=== PATIENT | female | born 1950 | race Caucasian/White ===

== ENCOUNTER 2021-06-03 09:34 | Outpatient (REF) | payer MEDICARE, SELFPAY ==
[2021-06-03 12:27] LABS: Estimated Average Glucose 220 mg/dL; Hemoglobin A1c % 9.3 %
== END 2021-06-03 09:35 | disposition home or self-care (01) ==
LOC: HO.MANLDS 09:34
PROVIDERS: PCP Internal Medicine; Visit Provider Internal Medicine
DX: E11.65 Type 2 diabetes mellitus with hyperglycemia (principal)
CPT/HCPCS: 36415; 83036

== ENCOUNTER 2021-10-21 13:30 | Outpatient (REF) | payer MEDICARE, SELFPAY ==
[2021-10-21 18:55] LABS: Erythrocyte Sedimentation Rate 39 MM/HR (0-20)
[2021-10-21 20:32] LABS: Alanine Aminotransferase 21 U/L (0-31); Albumin Level 4.1 g/dL (3.5-5.0); Alkaline Phosphatase 120 U/L (39-117); Anion Gap 15 (12-20); Aspartate Amino Transferase 20 U/L (5-31); Bilirubin Total 0.2 mg/dL (0.0-1.0); Blood Urea Nitrogen 14 mg/dL (9-16); C Reactive Protein 1.31 mg/dL (< or = 0.50); Carbon Dioxide 22 mmol/L (22-29); Chloride 107 mmol/L (96-108); Estimated Glomerular Filt Rate 53; Glucose Random 163 mg/dL (60-115); Magnesium 1.7 mg/dL (1.6-2.6); Potassium 4.5 mmol/L (3.3-5.1); Rheumatoid Factor < 15.0 IU/mL (<15.0); Sodium 139 mmol/L (135-145); Total Protein 7.2 g/dL (6.5-8.0)
[2021-10-21 20:46] LABS: Estimated Average Glucose 214 mg/dL; Hemoglobin A1c % 9.1 %
[2021-10-21 20:52] LABS: Thyroid Stimulating Hormone 0.95 uIU/mL (0.32-4.0); Vitamin D 25-OH Total 22.4 ng/mL (>30)
[2021-10-22 10:34] LABS: Folate 13.6 ng/mL (> or = 4.0); Vitamin B12 335 pg/mL (200-900)
[2021-10-23 08:48] LABS: Lyme Abs Screen <0.90 index
[2021-10-23 21:56] LABS: Anti Nuclear Antibody Screen NEGATIVE (NEGATIVE)
== END 2021-10-21 13:31 | disposition home or self-care (01) ==
LOC: HO.MANLDS 13:30
PROVIDERS: Visit Provider Physician Assistant
DX: M79.18 Myalgia, other site (principal); E11.65 Type 2 diabetes mellitus with hyperglycemia; M89.8X9 Other specified disorders of bone, unspecified site; M79.10 Myalgia, unspecified site; R53.83 Other fatigue; Z86.39 Personal history of other endocrine, nutritional and metabolic disease
CPT/HCPCS: 36415; 80053; 82306; 82550; 82607; 82746; 83036; 83735; 84443; 84550; 85652; 86038; 86039; 86140; 86431; 86617; 86618

== ENCOUNTER 2023-03-02 11:16 | Outpatient (REF) | payer MEDICARE, SELFPAY ==
[2023-03-02 13:21] LABS: MANUAL DIFF FLAG NO
[2023-03-02 13:33] LABS: Basophils Absolute Auto 0.1 X10*3/uL (0.0-0.2); Basophils Percent Auto 0.5 % (0-2); Eosinophils Absolute Auto 0.1 X10*3/uL (0.0-0.4); Eosinophils Percent Auto 0.9 % (0-4); Hematocrit 42.9 % (37.0-47.0); Hemoglobin 13.8 g/dl (12.0-16.0); Imm Gran Abs Auto 0.04 X10*3/uL (0.00-0.03); Imm Gran Pct Auto 0.4 % (0.0-0.4); Lymphocytes Absolute Auto 1.8 X10*3/uL (1.2-4.9); Lymphocytes Percent Auto 17.9 % (20-40); Mean Corpuscular HGB Conc 32.2 g/dl (31.0-35.0); Mean Corpuscular Hemoglobin 29.1 pg (27.0-33.0); Mean Corpuscular Volume 90.5 fL (80.0-98.0); Mean Platelet Volume 10.8 fL (9.4-12.3); Monocytes Absolute Auto 0.7 X10*3/uL (0.1-1.2); Monocytes Percent Auto 6.6 % (2-11); Neutrophils Absolute Auto 7.3 x10*3/uL (2.0-8.3); Neutrophils Percent Auto 73.7 % (45-73); Platelet Count 294 X10*3/uL (160-400); Red Blood Count 4.74 X10*6/uL (4.20-5.50); Red Cell Distribution Width 12.9 % (11.0-16.0); White Blood Count 9.9 X10*3/uL (4.8-10.8)
[2023-03-02 13:45] LABS: Estimated Average Glucose 209 mg/dL; Hemoglobin A1c % 8.9 % (<6.0)
[2023-03-02 14:10] LABS: Alanine Aminotransferase 20 U/L (0-31); Albumin Level 3.9 g/dL (3.5-5.0); Alkaline Phosphatase 92 U/L (39-117); Anion Gap 13 (12-20); Aspartate Amino Transferase 15 U/L (5-31); Bilirubin Total 0.3 mg/dL (0.0-1.0); Blood Urea Nitrogen 21 mg/dL (9-16); Calcium 9.2 mg/dL (8.4-10.2); Carbon Dioxide 21 mmol/L (22-29); Chloride 105 mmol/L (96-108); Cholesterol 166 mg/dL (<200); Estimated Glomerular Filt Rate 43; Glucose Random 313 mg/dL (60-115); HDL Cholesterol 39 mg/dL (>40); LDL Cholesterol Calculated 69 mg/dL (<100); Potassium 4.3 mmol/L (3.3-5.1); Sodium 135 mmol/L (135-145); Total Protein 7.2 g/dL (6.5-8.0); Triglycerides 290 mg/dL (<150)
== END 2023-03-02 11:17 | disposition home or self-care (01) ==
LOC: HO.MANLDS 11:16
PROVIDERS: Visit Provider Physician Assistant
DX: E11.65 Type 2 diabetes mellitus with hyperglycemia (principal)
CPT/HCPCS: 36415; 80053; 80061; 83036; 85025

== ENCOUNTER 2023-07-09 14:44 | Outpatient (REF) | payer MEDICARE, SELFPAY ==
[2023-07-09 17:35] LABS: MANUAL DIFF FLAG NO
[2023-07-09 17:38] LABS: Basophils Absolute Auto 0.1 X10*3/uL (0.0-0.2); Basophils Percent Auto 0.6 % (0-2); Eosinophils Percent Auto 0.5 % (0-4); Hematocrit 44.5 % (37.0-47.0); Hemoglobin 14.8 g/dl (12.0-16.0); Imm Gran Abs Auto 0.03 X10*3/uL (0.00-0.03); Imm Gran Pct Auto 0.4 % (0.0-0.4); Lymphocytes Absolute Auto 1.8 X10*3/uL (1.2-4.9); Lymphocytes Percent Auto 21.5 % (20-40); Mean Corpuscular HGB Conc 33.3 g/dl (31.0-35.0); Mean Corpuscular Hemoglobin 28.6 pg (27.0-33.0); Mean Corpuscular Volume 86.1 fL (80.0-98.0); Mean Platelet Volume 10.7 fL (9.4-12.3); Monocytes Absolute Auto 0.6 X10*3/uL (0.1-1.2); Neutrophils Absolute Auto 5.8 x10*3/uL (2.0-8.3); Platelet Count 328 X10*3/uL (160-400); Red Blood Count 5.17 X10*6/uL (4.20-5.50); White Blood Count 8.2 X10*3/uL (4.8-10.8)
[2023-07-09 17:58] LABS: Alanine Aminotransferase 20 U/L (0-31); Albumin Level 4.1 g/dL (3.5-5.0); Alkaline Phosphatase 100 U/L (39-117); Anion Gap 16 (12-20); Aspartate Amino Transferase 15 U/L (5-31); Bilirubin Total 0.3 mg/dL (0.0-1.0); Blood Urea Nitrogen 27 mg/dL (9-16); Calcium 9.8 mg/dL (8.4-10.2); Carbon Dioxide 20 mmol/L (22-29); Chloride 103 mmol/L (96-108); Estimated Glomerular Filt Rate 42; Glucose Random 326 mg/dL (60-115); Iron 54 mcg/dL (30-160); Percent Iron Saturation 17 % (15-50); Phosphorus 2.7 mg/dL (2.7-4.5); Potassium 4.8 mmol/L (3.3-5.1); Sodium 134 mmol/L (135-145); Total Iron Binding Capacity 316 mcg/dL (228-428); Unsaturated Iron Binding 262 ug/dL; Uric Acid 7.7 mg/dL (2.4-5.7)
[2023-07-09 18:15] LABS: Ferritin 138 ng/mL (10-250); Thyroid Stimulating Hormone 0.84 uIU/mL (0.32-4.0)
[2023-07-09 18:20] LABS: Rheumatoid Factor < 13.0 IU/mL (<15.0)
[2023-07-09 18:49] LABS: Folate 10.5 ng/mL (> or = 4.0); Vitamin B12 409 pg/mL (200-900)
[2023-07-10 10:49] LABS: Thyroid Peroxidase Antibodies <1 IU/mL (<9)
[2023-07-11 10:54] LABS: Anti Nuclear Antibody Screen NEGATIVE (NEGATIVE)
[2023-07-12 17:43] LABS: Lyme Abs Screen <0.90 index
[2023-07-12 21:47] LABS: Complement C3 192 mg/dL (83-193)
[2023-07-13 14:39] LABS: A. Phagocytophilum Ab IgG <1:64 (<1:64); A. Phagocytophilum Ab IgM <1:20 (<1:20); E. Chaffeensis Ab IgG <1:64 (<1:64); E. Chaffeensis Ab IgM <1:20 (<1:20)
[2023-07-14 23:23] LABS: Immunoglobulin E 133 kU/L (<OR=114)
[2023-07-15 15:43] LABS: Thyroid Stimulating Immunoglob <89 % baseline (<140)
== END 2023-07-09 14:45 | disposition home or self-care (01) ==
LOC: HO.MANLDS 14:44
PROVIDERS: Visit Provider Physician Assistant
DX: M62.81 Muscle weakness (generalized) (principal); M25.50 Pain in unspecified joint; R53.83 Other fatigue
CPT/HCPCS: 36415; 80053; 82306; 82550; 82607; 82728; 82746; 82785; 83540; 83735; 84100; 84439; 84443; 84445; 84550; 85025; 86038; 86160; 86376; 86431; 86617; 86618; 86666

== ENCOUNTER 2024-02-15 14:30 | Outpatient (REF) | payer MEDICARE, SELFPAY | END 2024-02-15 14:31 | disposition home or self-care (01) | LOC: HO.LNP 14:30 | PROVIDERS: Visit Provider Physician Assistant | DX: A49.1 Streptococcal infection, unspecified site (principal) | CPT/HCPCS: 87070 ==

== ENCOUNTER 2024-07-04 13:22 | Outpatient (REF) | payer MEDICARE, SELFPAY ==
--- OUTSIDE RECORDS SUMMARY | 2024-07-04 16:17 | XMS_ITS | Continuity of Care Document ---
Author Organization [facility], [facility] Address [address] [place] [address] [place] [address] Assessment No assessment recorded. Plan of Treatment Reminders Order Date Submit Date Provider Last Modified By Organization Details Last Modified Time Details Appointments FOLLOW UP 15 2024 11:00A M TALAT CROWLEY Not available Not available Not available FOLLOW UP 15 2024 09:00A M DR LACY Not available Not available Not available MEDICARE ANNUAL WELLNESS 2024 11:00A M DR LACY Not available Not available Not available Lab culture, ear - left ear 2024 025 [facility], [address] [place] [address], [place], [address], 07/04/2024 11:32:32 Referral None recorded. Procedures None recorded. Surgeries None recorded. Imaging None recorded. Medication Orders ciproflox acin 0.3 %-dexamet hasone 0.1 % ear drops,eulalia pension 2024 025 [id number], [address] [place], [address], 07/04/2024 11:31:35 ketoconaz ole 200 mg tablet 2024 025 [facility][id number], [address] [place], [address], 07/04/2024 11:31:35 Patient TargetsNo targets recorded. Patient InstructionsNo instructions recorded. Reason for Referral None Reported. Problems Name Problem SNOMED Code Status Onset Date Resolution Date Notes Provider Name and Address Organization Details Recorded Time Hyperten sive disorder 24462838 Active 2018 Not Available [facility] 2 01:26:47 Asthma 929726859 Active 2018 Not Available [facility] 2 01:26:47 Type 2 diabetes mellitus 53644513 Active 2018 Not Available [facility] 2 01:26:47 Degenera tion of lumbar interver tebral disc 75806877 Active 2019 Not Available [facility] 2 01:26:47 COVID-19 933585215 Active 2021 Not Available [facility] 2 01:26:47 Cough 80237125 Active 2021 Not Available [facility] 2 01:26:47 Muscle pain 36470817 Active 2021 Not Available [facility] 2 01:26:47 Myalgia/ myositis - multiple 601748671 Active 2021 Not Available [facility] 2 01:26:47 Muscle weakness 01573423 Active 2021 Not Available [facility] 2 01:26:47 Polymyal mary rheumati ca 26029732 Active 2021 Not Available [facility] 2 01:26:47 Candidia sis of mouth 91959181 Active 2021 Not Available [facility] 2 01:26:47 Candidia sis of vagina 69243743 Active 2021 Not Available [facility] 2 01:26:47 Asthmati c bronchit is 419408138 Active 2021 Not Available [facility] 2 01:26:47 Left lower zone pneumoni a 602042261 Active 2021 Not Available [facility] 2 01:26:47 Acute urinary tract infectio n 169731343 Active 2022 TALAT CROWLEY [address] [place] [address], [address], [facility] 3 11:39:05 Pain in limb 01684004 Active 2022 TALAT CROWLEY [address] [place], [address], [facility] 3 11:39:51 Pain in limb 45130467 Active 2022 TALAT CROWLEY [address] [place], [address], [facility] 3 11:42:46 Pain of left shoulder joint 9027190131 6543318 Active 2022 TALAT CROWLEY [address] [place], [address], [facility] 3 08:44:43 Impingem ent syndrome of left shoulder region 7904947356 71316 Active 2022 TALAT CROWLEY [address] [place] [address], [address], [facility] 3 12:35:14 Rupture of rotator cuff of left shoulder 5540242745 2547932 Active 2022 Kaden Lacy DO [address] [place] [address], [address], [facility] 3 15:34:24 Nausea 503315220 Active 2022 TALAT CROWLEY [address] [place], [address], [facility] 3 11:00:26 Serous otitis media 84476151 Active 2022 Kaden Lacy DO [address] [place], [address], [facility] 3 14:35:45 Candidia sis of skin 39820130 Active 2022 TALAT CROWLEY [address] [place], [address], [facility] 3 11:03:52 Cellulit is 672515013 Active 2022 TALAT CROWLEY [address] [place], [address], [facility] 3 11:04:19 Low back pain 908246439 Active 2023 Kaden Lacy, DO [address] [place] [address], [address], [facility] 4 16:33:54 Alcohol dependen ce 89459577 Active 2023 TALAT CROWLEY [address] [place] [address], [address], [facility] 4 14:22:05 Dementia 01774973 Active 2023 TALAT CROWLEY [address] [place] [address], [address], [facility] 4 14:23:05 Neuralgi a 25953150 Active 2023 TALAT CROWLEY [address] [place] [address], [address], [facility] 4 14:23:35 Multiple joint pain 38873974 Active 2023 TALAT CROWLEY [address] [place] [address], [address], [facility] 4 14:24:39 Parkinso nism 69953992 Active 2023 TALAT CROWLEY [address] [place] [address], [address], [facility] 4 14:25:48 Fatigue 73895936 Active 2023 TALAT CROWLEY [address] [place] [address], [address], [facility] 4 14:27:54 Chronic tympanit is 78333678 Active 2023 Kaden Lacy, DO [address] [place] [address], [address], [facility] 4 16:45:01 Chronic tympanit is 92347621 Active 2023 Kaden Lacy, DO [address] [place] [address], [address], [facility] 4 16:45:12 Acute otitis media 0087112 Active 2023 Kaden Lacy, DO [address] [place], [address], [facility] 4 17:16:02 Pneumoni a 652022568 Active 2023 Kaden Lacy, DO [address] [place] [address], [address], [facility] 4 14:45:23 Syncope 468764967 Active 2023 TALAT CROWLEY [address] [place] [address], [address], [facility] 4 14:50:46 Uncontro lled type 2 diabetes mellitus 492232649 Active 2023 TALAT CROWLEY [address] [place] [address], [address], [facility] 4 14:56:03 Glaucoma 41203115 Active 2023 TALAT CROWLEY [address] [place], [address], [facility] 4 14:58:35 Glaucoma 86490787 Active 2023 TALAT CROWLEY [address] [place], [address], [facility] 4 15:00:17 Abnormal cortisol 406227167 Active 2023 TALAT CROWLEY [address] [place], [address], [facility] 4 15:00:44 Ataxia 82530528 Active 2023 Kaden Lacy, DO [address] [place], [address], [facility] 4 22:56:42 Pain of ear 526796567 Active 2023 Kaden Lacy, DO [address] [place], [address], [facility] 4 16:02:54 Insomnia 977037977 Active 2023 Kaden Lacy, DO [address] [place], [address], [facility] 4 16:07:33 Streptoc occal infectio us disease 83612625 Active 2023 TALAT CROWLEY [address] [place] [address], [address], [facility] 4 11:23:35 Postoper ative wound infectio n 78535387 Active 2023 Kaden Lacy, DO [address] [place] [address], [address], [facility] 4 11:26:51 Impacted cerumen of bilatera l ears 2554782257 284782 Active 2024 TALAT CROWLEY [address] [place] [address], [address], [facility] 5 16:15:52 Chronic maxillar y sinusiti s 94461299 Active 2024 TALAT CROWLEY [address] [place] [address], [address], [facility] 5 16:16:17 Acute sinusiti s 63755141 Active 2024 TALAT CROWLEY [address] [place] [address], [address], [facility] 5 16:16:27 Basal cell carcinom a of lower extremit y 320714624 Active 2024 TALAT CROWLEY [address] [place] [address], [address], [facility] 5 16:20:10 Posterio r rhinorrh ea 61993807 Active 2024 TALAT CROWLEY [address] [place], [address], [facility] 5 16:50:47 Acute left otitis media 056007507 Active 2024 TALAT CROWLEY [address] [place], [address], [facility] 5 11:24:59 Asthma 983298176 Completed 201705/24/2018 Kaden Lacy DO [address] [place] [address], [address], [facility] 9 15:53:30 Type 2 diabetes mellitus 41296665 Completed 201705/24/2018 Kaden Lacy DO [address] [place] [address], [address], [facility] 9 15:54:53 Gastroes ophageal reflux disease 093714128 Completed 201705/24/2018 Veronica corley [facility] 9 15:32:51 Disorder of gallblad saleem 25606691 Completed 201705/24/2018 cholecys testomy Veronica corley [facility] 9 15:32:51 Weakness of left leg 8735238572 2042559 Completed 201705/24/2018 Veronica corley [facility] 9 15:32:51 Weakness of right leg 8620187326 8065908 Completed 201705/24/2018 Veronica corley [facility] 9 15:32:51 Serous otitis media 46581436 Completed 201705/24/2018 Veronica corley [facility] 9 15:32:51 Problem Notes None recorded. Procedures Surgical History Date Name Laterality Status Provider Name and Address Organization Details Recorded Time 5 Cerumen Removal completed TALAT CROWLEY [address] [place], [address], [facility] 07/04/2024 11:36:20 5 Cerumen Removal completed TALAT CROWLEY [address] [place], [address], [facility] 06/06/2024 16:21:58 Imaging Results None recorded. Procedure Notes None recorded. Medical Equipment None Reported. Allergies Allergen ID Allergen Name Allergen Category Reaction Reaction Severity Criticality Documentation Date Start Date Code Code System Note Provider Name and Address Organization Details Recorded Time 119 amoxicill in medicatio n Not available Not available Not available 05/28/2017 723 RxNorm Veronica [facility] 9 15:32:49 120 losartan medicatio n dizziness Not available Not available 05/28/2017 34690 RxNorm Veronica [facility] 9 15:32:49 3148 Product containin g penicilli n (product) medicatio n rash Not available Not available 09/24/2018 77158 8001 SNOMED Beth BROCK Madsen [address] [place], [address], [facility] 9 11:20:38 4225 tetanus and diphtheri a toxoids Not available angioedem a moderate Not available 03/19/20202004 67323 JONES Lacy, [address] [place], [address], [facility] 0 16:02:19 Medications Name Sig Start Date Stop Date Status Note LastModified by Organization Details LastModified Time celecoxib 200 mg capsule TAKE 1 CAPSULE BY MOUTH EVERY DAY 04/19 completed Not Available Not Available Not Available budesonid e 32 mcg/actua tion nasal spray Take 1 spray every day by nasal route for 30 days. 2024 active Not Available Not Available Not Avai lable latanopro st 0.005 % eye drops INSTILL 1 DROP INTO BOTH EYES AT BEDTIME active Not Available Not Available No t Available fluconazo le 100 mg tablet Take by mouth everyday . 12/10 completed Not Available Not Available Not Available metformin 500 mg tablet TAKE 1 TABLET TWICE A DAY 12/10 completed Not Available Not Available Not Available neomycin- polymyxin -hydrocor t 3.5 mg/mL-10, 000 unit/mL-1 % ear solution INSTILL 4 DROPS INTO AFFECTED EARS 3 TIMES A DAY 11/21 completed Not Available Not Available Not Available nystatin 100,000 unit/mL oral suspensio n TAKE 5 ML BY MOUTH 4 TIMES A DAY FOR 7 DAYS 11/21 completed Not Available Not Available Not Available prednison e 10 mg tablet TAKE 1 TABLET BY MOUTH EVERY DAY 10/31 completed Not Available Not Available Not Available doxycycli ne hyclate 100 mg capsule Take 1 capsule twice a day by oral route for 10 days. 04/19 completed Not Available Not Available Not Available ipratropi um 0.5 mg-albute rol 3 mg (2.5 mg base)/3 mL nebulizat ion soln 07/02 completed Not Available Not Available Not Available trazodone 50 mg tablet TAKE 1 TABLET BY MOUTH EVERY DAY FOR 30 DAYS 04/19 completed Not Available Not Available Not Available ketoconaz ole 200 mg tablet active Not Available Not Available No t Available azithromy brent 250 mg tablet TAKE 2 TABLETS BY MOUTH TODAY, THEN TAKE 1 TABLET DAILY FOR 4 DAYS DIRECTED active Not Available Not Available No t Available fluconazo le 150 mg tablet TAKE 1 TABLET BY MOUTH EVERY DAY FOR 1 DAY. active Not Available Not Available No t Available ondansetr on HCl 8 mg tablet Take 1 tablet twice a day by oral route for 7 days. 08/26 completed Not Available Not Available Not Available brinzolam phi 1 % eye drops,eulalia pension INSTILL 1 DROP INTO BOTH EYES TWICE A DAY active Not Available Not Available No t Available fluconazo le 200 mg tablet Take one tablet every day when needed. 11/23 completed Not Available Not Available Not Available glipizide ER 10 mg tablet, extended release 24 hr 2024 active Not Available Not Available Not Avai lable prednison e 20 mg tablet TAKE 1 TABLET BY MOUTH EVERY DAY 07/01 completed Not Available Not Available Not Available prednison e 5 mg tablet TAKE 3 TABLETS BY MOUTH EVERY DAY STOP TAKING CELECOXI B 10/31 completed Not Available Not Available Not Available dextromet horphan-g uaifenesi n 10 mg-100 mg/5 mL oral syrup TAKE 5 ML BY MOUTH EVERY 4 (FOUR) HOURS NEEDED (COUGH). 11/21 completed Not Available Not Available Not Available ciproflox acin 500 mg tablet TAKE 1 TABLET BY MOUTH EVERY 12 HOURS FOR 5 DAYS 11/21 completed Not Available Not Available Not Available sulfameth oxazole 800 mg-trimet hoprim 160 mg tablet TAKE 1 TABLET BY MOUTH EVERY 12 HOURS FOR 7 DAYS 07/01 completed Not Available Not Available Not Available tramadol 50 mg tablet TAKE 1 TABLET BY MOUTH THREE TIMES A DAY NEEDED 08/25 completed Not Available Not Available Not Available ondansetr on 8 mg disintegr ating tablet PLACE 1 TABLET BY TRANSLIN GUAL ROUTE TWICE A DAY NEEDED FOR 5 DAYS 11/21 completed Not Available Not Available Not Available ketorolac 0.5 % eye drops active Not Available Not Available Not Available prednison e 10 mg tablets in a dose pack Take 1 dose pk by oral route as directed for 8 days. 12/10 completed Not Available Not Available Not Available prednisol one acetate 1 % eye drops,eulalia pension active Not Available Not Available Not Available aspirin 325 mg tablet,de layed release TAKE 1 TABLET BY MOUTH DAILY FOR 14 DAYS. 03/02 completed Not Available Not Available Not Available prednison e 1 mg tablet TAKE 4 TABLETS BY MOUTH EVERY DAY FOR 30 DAYS 11/21 completed Not Available Not Available Not Available OneTouch Ultra Test strips TEST SUGAR THREE TIMES A DAY DIRECTED active Not Available Not Available No t Available doxycycli ne monohydra te 100 mg capsule TAKE 1 CAPSULE BY MOUTH TWICE A DAY FOR 7 DAYS 10/21 completed Not Available Not Available Not Available prednison e 2.5 mg tablet TAKE 3 TABLETS BY MOUTH EVERY DAY 10/31 completed Not Available Not Available Not Available cephalexi n 500 mg capsule TAKE 1 CAPSULE BY MOUTH EVERY 6 HOURS FOR 7 DAYS 07/08 completed Not Available Not Available Not Available pantopraz ole 40 mg tablet,de layed release TAKE 1 TABLET DAILY active Not Available Not Available No t Available clotrimaz ole-betam ethasone 1 %-0.05 % topical cream APPLY TOPICALL Y TO AFFECTED AND SURROUND ING AREA TWICE A DAY ( MORNING & EVENING) FOR 14 DAYS 11/21 completed Not Available Not Available Not Available lisinopri l 10 mg tablet TAKE 1 TABLET BY MOUTH EVERY DAY active Not Available Not Available No t Available glimepiri de 4 mg tablet Take 1 tablet every day by oral route in the morning for 30 days. active Not Available Not Available No t Available Ear Drops (carbamid e peroxide) 6.5 % INSTILL 5 DROPS IN EACH EAR 2 TIMES A DAY. active Not Available Not Available No t Available zafirluka st 20 mg tablet Take 1 tablet every day by oral route. 07/08 completed Not Available Not Available Not Available docusate sodium 100 mg capsule TAKE 1 CAPSULE BY MOUTH TWICE A DAY 03/02 completed Not Available Not Available Not Available codeine 10 mg-guaife nesin 100 mg/5 mL oral liquid TAKE 10 ML EVERY 4 HOURS BY ORAL ROUTE FOR 7 DAYS. 07/25 completed Not Available Not Available Not Available lisinopri l 5 mg tablet TAKE 1 TABLET BY MOUTH EVERY DAY 03/02 completed Not Available Not Available Not Available mupirocin 2 % topical ointment active Not Available Not Available Not Available azelastin e 137 mcg (0.1 %) nasal spray ADMINIST ER 2 SPRAYS BY INTRANAS AL ROUTE TWICE A DAY FOR 30 DAYS active Not Available Not Available No t Available cefuroxim e axetil 500 mg tablet TAKE 1 TABLET BY MOUTH 2 TIMES A DAY FOR 8 DAYS. 04/03 completed Not Available Not Available Not Available levofloxa brent 500 mg tablet TAKE 1 TABLET BY MOUTH EVERY 24 HOURS FOR 10 DAYS 04/03 completed Not Available Not Available Not Available levofloxa brent 750 mg tablet 07/02 completed Not Available Not Available Not Available methylpre dnisolone 4 mg tablets in a dose pack TAKE 6 TABLETS ON DAY 1 DIRECTED ON PACKAGE AND DECREASE BY 1 TAB EACH DAY FOR A TOTAL OF 6 DAYS 10/21 completed Not Available Not Available Not Available albuterol sulfate HFA 90 mcg/actua tion aerosol inhaler INHALE 2 PUFFS INTO THE LUNGS EVERY 4 HOURS NEEDED 11/21 completed Not Available Not Available Not Available Cortispor in-TC 3.3 mg-3 mg-10 mg-0.5 mg/mL ear drops,eulalia pension Instill 1 mL twice a day by otic route for 5 days. 2023 active Not Available Not Available Not Avai lable cefdinir 300 mg capsule 11/21 completed Not Available Not Available Not Available doxycycli ne hyclate 100 mg tablet TAKE 1 TABLET BY MOUTH TWICE A DAY FOR 10 DAYS active Not Available Not Available No t Available oxycodone 5 mg tablet TAKE 1 TO 2 TABLETS (5-10 MG TOTAL) BY MOUTH EVERY 4 HOURS NEEDED (PARTIAL FILL OKAY) 08/25 completed Not Available Not Available Not Available neomycin- polymyxin -hydrocor t 3.5 mg-10,000 unit/mL-1 % ear drops,eulalia p INSTILL 4 DROPS INTO AFFECTED EAR(S) 3 TIMES A DAY 11/21 completed Not Available Not Available Not Available ciproflox acin 0.3 %-dexamet hasone 0.1 % ear drops,eulalia pension INSTILL 4 DROPS INTO AFFECTED EAR(S) BY OTIC ROUTE 2 TIMES PER DAY FOR 7 DAYS 2024 active Not Available Not Available Not Avai lable cholestyr amine (with sugar) 4 gram powder for susp in a packet MIX 1 PACKET IN FLUID AND DRINK ONCE DAILY active Not Available Not Available No t Available albuterol sulfate concentra te 2.5 mg/0.5 mL solution for nebulizat ion TAKE 0.5 ML (2.5 MG TOTAL) BY NEBULIZA TION 4 (FOUR) TIMES A DAY NEEDED FOR WHEEZING . 11/21 completed Not Available Not Available Not Available Qvar take one puff in the morning and one puff at night active Not Available Not Available No t Available ProAir HFA prn active Not Available Not Available Not Available Alvesco 160 mcg/actua tion aerosol inhaler 11/23 completed Not Available Not Available Not Available GaviLyte- G 236 gram-22.7 4 gram-6.74 gram-5.86 gram oral solution 12/10 completed Not Available Not Available Not Available Advil Allergy-C ongestion Relief 4 mg-10 mg-200 mg tablet Take 1 tablet every day by oral route. active Not Available Not Available No t Available Jardiance 10 mg tablet 1 yanna qd 06/27 completed Not Available Not Available Not Available Stiolto Respimat 2.5 mcg-2.5 mcg/actua tion solution for inhalatio n Inhale 1 puff twice a day by inhalati on route for 90 days. 08/25 completed Not Available Not Available Not Available Stiolto Respimat take one puff once a day active Not Available Not Available No t Available Bevespi Aerospher e 9 mcg-4.8 mcg HFA aerosol inhaler active Not Available Not Available Not Available Coditussi n AC 10 mg-200 mg/5 mL oral liquid active Not Available Not Available Not Available Basaglgiacomo Friend U-100 Insulin 100 unit/mL (3 mL) subcutane ous Inject 20 units every day by subcutan eous route in the evening for 30 days. active taking in the AM due to sugar issues at night vs am and adding back on glimepri de for control while working on the insulin dosing Not Available Not Available Not Available Fluzone High-Dose 8606-6241 (PF) 180 mcg/0.5 mL intramusc ular syringe 07/02 completed Not Available Not Available Not Available Qvar RediHaler 80 mcg/actua tion HFA breath activated aerosol Inhale 2 puffs twice a day by inhalati on route. 08/25 completed Not Available Not Available Not Available Ozempic 0.25 mg or 0.5 mg (2 mg/1.5 mL) subcutane ous pen injector INJECT SQ 0.25 MG EVERY WEEK FOR FOUR WEEKS 07/27 completed Not Available Not Available Not Available OneTouch Ultra2 Meter 05/16 completed Not Available Not Available Not Available Fluzone High-Dose 2018- (PF) 180 mcg/0.5 mL intramusc ular syringe 12/28 completed Not Available Not Available Not Available Fluzone High-Dose Quad (PF) 240 mcg/0.7 mL IM syringe ADM 0.7ML IM UTD 03/19 completed Not Available Not Available Not Available Ozempic 1 mg/dose (4 mg/3 mL) subcutane ous pen injector Inject 1 mg every week by subcutan eous route for 90 days. 07/07 completed Not Available Not Available Not Available QuickVue At-Home COVID-19 Test kit REFER TO MANUFACT URER INSTRUCT IONS INCLUDED I PACKAGIN G 08/25 completed Not Available Not Available Not Available Paxlovid 300 mg (150 mg x 2)-100 mg tablets in a dose pack TAKE 3 TABLETS BY MOUTH TWICE A DAY FOR 5 DAYS 04/03 completed Not Available Not Available Not Available Ozempic 0.25 mg or 0.5 mg (2 mg/3 mL) subcutane ous pen injector inject 0.25mg per week 07/27 completed Not Available Not Available Not Available Vitals Date Recorded Body height Body mass index (BMI) Body weight Heart rate Oxygen saturation Oxygen saturation in Arterial blood by Pulse oximetry Systolic blood pressure Diastolic blood pressure Provider Name and Address Organization Details Last Updated DateTime 5 158.75 cm 31.8 kg/m2 83847.7 7 g 123 /min 95 % 95 % 116 mm[Hg] 72 mm[Hg] Yamilet Garcia [facility] 5 11:00:29 Social History Question Answer Notes LastModified by Organizat ion Details LastModified Time Tobacco Smoking Status Never Smoker Not Available [facility] 01/30/2020 03:36:24 What Was The Date Of Your Most Recent Tobacco Screening? 06/19/2024 [email or web address] Information not available 06/19/2024 Do You Or Have You Ever Used Any Other Forms Of Tobacco Or Nicotine? No [email or web address] Information not available 10/21/2021 Sex: Unknown Functional Status None recorded. Mental Status None recorded. Family History Nothing Reported. Medical History No medical history recorded. Gynecological HistoryNo gynecological history recorded. Obstetrics History GPAL:G 0 P 0 0 0 0 Immunizations Vaccine Type Date Status Note Provider Nam e and Address Organization Details Recorded Time COVID-19, mRNA, LNP-S, PF, 30 mcg/0.3 mL dose 1 completed Not Available [facility] 03/14/2022 01:26:47 Influenza, split virus, quadrivalent, preservative 1 completed Not Available [facility] 03/14/2022 01:26:47 zoster recombinant 2 completed Not Available [facility] 03/14/2022 01:26:47 zoster recombinant 2 completed Haylie corley [facility] 04/03/2022 08:38:31 influenza, unspecified formulation 2 completed Haylie corley [facility] 04/03/2022 08:38:46 COVID-19, mRNA, LNP-S, PF, 30 mcg/0.3 mL dose 1 completed Haylie corley [facility] 04/03/2022 08:39:05 influenza, unspecified formulation 4 completed Fermín corley [facility] 01/25/2024 15:52:01 Pneumococcal conjugate PCV20, polysaccharide [id number] conjugate, adjuvant, PF 4 completed Fermín corley [facility] 01/25/2024 15:52:27 Influenza, split virus, quadrivalent, preservative 9 completed Not Available [facility] 03/14/2022 01:26:47 Influenza, split virus, quadrivalent, preservative 0 completed Not Available [facility] 03/14/2022 01:26:47 COVID-19, mRNA, LNP-S, PF, 30 mcg/0.3 mL dose 1 completed Not Available [facility] 03/14/2022 01:26:47 Past Encounters Encounter ID Performer Location Encounter Start Date Encounter Closed Date Diagnosis/Indication Diagnosis SNOMED-CT Code Diagnosis ICD10 Code Diagnosis Note [id number] TALAT CROWLEY [facility] [address] [facility] [place] [address] 06/06/2024 15:42:49 06/06/2024 16:45:17 Impacted cerumen of bilateral ears [id number] 156583 H61.23 cont debrox, left ear is still blocked Chronic wy xillary sinusitis 23318573 J32.0 Acute sinusitis 66397189 J01.01 Basal cell carcinoma of lower extremity 956482245 C44.719 [id number] Kaden Lacy DO [facility] [address] [facility],[address] [place] [address] 06/19/2024 13:34:40 06/19/2024 14:05:43 Asthma 515484805 J45.90Bishnu seems to be stable relates that she has not been bothered too much with asthmausin g qvar again and getting through [place] has not required a inhalersee s dr medina in one episode of gasping while asleep and this occurs sporadical ly has been using proair Type 2 chapis betes mellitus [id number] E11.65 a1c is now up to 11 and is still high see hpi 11.5 not sure about diet and will need to treatdid not tolerate ozempicwil l cont basaglar but at 20 units daily she will take dose around 1600hrs PRIOR a1c is now at 9.9 she is back on pred and diet is poor was 8.5 i have told her that the glucose readings are still too high and that she needs to be on insulin and she refuses wants to try on her own ( again) she has done this mult times in the pastbegged her to eat better stop ordering out if possdaught er present we will rechk in 2 mo if still high will insist on lantus y Hypertensive disorder 38 [id number] I10 her bp was elevated lately lisinopril 5mgstates she seems to be up and down from 160/82 down to 130's so avg 140-50/70- 80sno cough but pulse is avg 100 will increase to 10mgdenies any cp and sob Dementia 38414724 F03.90 Depression screening 171 801166 Z13.31 Neg Screening [id number] TALAT CROWLEY [facility] [address] [facility],[address] [place] [address] 07/04/2024 10:31:55 07/04/2024 14:51:34 Impacted cerumen of bilateral ears [id number] 224596 H61.23 cont debrox, left ear is still blocked Acute left otitis media 730087251 H65.02 will start on ciprofloxa brent drops and anti-funga lwill send out for culture Health Concerns Section Related Observation LastModified by Organization Detjace lomeli LastModified Time None Recorded Concern Status LastModified by Organization Details LastModified Time None Recorded Payers Encounter Date Sequence Insurance Name Policy Number Policy Clark Covered Member ID Clark Member ID Guarantor Name 07/04/2024 1 [facility]: MEDICARE PPO BLUE (MEDICARE REPLACEMENT PPO) [id number] Hina Guanak [id number] Hina Lindsay Notes Date Note Type Note Provider Name a nd Address Organization Details Recorded Time 5 text/html L ear pain the patient reports severe L ear painhx of ear problems and chronic sinusitis causing vertigo saw ER, MRI notes acute on chronic sinusitisalready on a zpak, she finished todayCT in october showed chronic sinusitis purulent d/c left eartook a swab to culture will send out ear flushed, has sig drainage from the left earwhite, purulent recommended adding boarder coverage and fungal coverage TALAT CROWLEY [address] [place] [address], [place], [id number], [facility] 07/04/2024 11:36:24 OBGyn Episode No OBEpisode recorded.
--- OUTSIDE RECORDS SUMMARY | 2024-07-04 16:17 | XMS_ITS | Data Portability ---
Author Organization [facility] Home Service Address [address] [place] [address] Assessment Encounter Date Assessment Date Assessment LastModified by Organization Details LastModified Time 04/19/2024 04/19/2024 giancarlo [email or web address] Not available 11:50:53 06/19/2024 06/19/2024 [id number] [place] [id number] (ORDER DESK CLERK) MDM MODERATE MUST MEET 2 OUT OF 3 ELEMENTS: PROBLEMS, DATA OR RISK ELEMENT 1: PROBLEMS ADDRESSED 1 OR MORE CHRONIC ILLNESS WITH EXACERBATION OR 2 OR MORE STABLE CHRONIC ILLNESSES OR 1 UNDIAGNOSED NEW PROBLEM OR 1 ACUTE ILLNESS W/SYMPTOMS OR 1 ACUTE COMPLICATED INJURY ELEMENT 2: DATA MUST MEET 1 OF 3 CATEGORIES CATEGORY 1: REVIEW OF PRIOR EXTERNAL NOTES, REVIEW OF RESULTS, ORDERING OF EACH TEST, ASSESSMENT REQUIRING INDEPENDENT HISTORIAN OR CATEGORY 2: INDEPENDENT INTERPRETATION OF TESTS BY ANOTHER PHYSICIAN OR SPECIALIST OR CATEGORY 3: DISCUSSION OF MGT OR TEST INTERPRETATION W/EXTERNAL PHYSICIAN OR SPECIALIST ELEMENT 3: RISK RISK OF COMPLICATIONS AND/OR MORBIDITY OR MORTALITY OF PATIENT MANAGEMENT PROVIDER MUST THOROUGHLY DOCUMENT EACH ELEMENT THAT IS COVERED Not available 06/19/2024 14:00:52 Plan of Treatment Reminders Order Date Submit [...] culture, ear - left ear 2024 [id number] [facility], [address] [place] [address] [place], [address], 07/04/2024 11:32:32 CMP, serum or plasma 2024 [facility] (Out[facility]), [address] [place] [address], [id number], 06/19/2024 14:10:44 lipid panel, blood 2024 [facility] (Outpatient), [address] [place] [address], [id number], 06/19/2024 14:10:44 CBC w/ auto diff 2024 [facility] (Outpatient), [address] [place] [address], [id number], 06/19/2024 14:10:44 Referral dermatolo gist referral - active pt 2024 [facility], [address] [place], [address], 06/07/2024 08:31:30 Procedures None recorded. Surgeries None recorded. Imaging CT, sinuses, w/o contrast 2024 [facility], [address] [place] [address], [id number], 06/26/2024 13:26:45 Medication Orders ciproflox acin 0.3 %-dexamet hasone 0.1 % ear drops,eulalia pension 2024 025 [facility] #[id number], [address] [place], [address], 07/04/2024 11:31:35 ketoconaz ole 200 mg tablet 2024 [facility] #[id number], [address] [place], [address], 07/04/2024 11:31:35 budesonid e 32 mcg/actua tion nasal spray 2024 025 [facility] #[id number], [address] [place], [address], 06/06/2024 16:19:42 doxycycli ne hyclate 100 mg tablet 2024 025 [facility] #[id number], [address] [place], [address], 06/06/2024 16:19:42 Basaglar KwikPen U-100 Insulin 100 unit/mL (3 mL) subcutane ous 2024 025 [facility] #[id number], [address] [place], [address], 06/19/2024 14:02:32 Patient TargetsNo targets recorded. 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 active pt Referring Physician: Priti Camilo, Internal Medicine, Encounter Date: 06/06/2024 Results Created Date Observation Date Name Description Value Unit Range Abnormal Flag Note LastModifiedBy Organization Detail LastModifiedTime 04/19/1904/19/2024 pulse oxime try* Result 97 Not Available [facility] [address] [facility] [address], [place], [address], 04/11/2024 11:50:14 06/20/19 25 06/19/2024 pulse oxime try* Result 97 Not Available [facility] [address] [facility] [address], [place], [address], 06/17/2024 10:15:52 Result Notes None recorded. Problems Name Problem SNOMED Code Status Onset Date Resolution Date Notes Provider Name and Address Organization Details Recorded Time Hyperten sive disorder 39170050 Active 2018 Not Available [facility] 2 01:26:47 Asthma 484298503 Active 2018 Not Available [facility] 2 01:26:47 Type 2 diabetes mellitus 77131037 Active 2018 Not Available [facility] 2 01:26:47 Degenera tion of lumbar interver tebral disc 33370690 Active 2019 Not Available [facility] 2 01:26:47 COVID-19 913681554 Active 2021 Not Available [facility] 2 01:26:47 Cough 17200999 Active 2021 Not Available [facility] 2 01:26:47 Muscle pain 51350931 Active 2021 Not Available [facility] 2 01:26:47 Myalgia/ myositis - multiple 568628598 Active 2021 Not Available [facility] 2 01:26:47 Muscle weakness 37895201 Active 2021 Not Available [facility] 2 01:26:47 Polymyal mary rheumati ca 62861498 Active 2021 Not Available [facility] 2 01:26:47 Candidia sis of mouth 99523057 Active 2021 Not Available [facility] 2 01:26:47 Candidia sis of vagina 34058160 Active 2021 Not Available [facility] 2 01:26:47 Asthmati c bronchit is 471232221 Active 2021 Not Available [facility] 2 01:26:47 Left lower zone pneumoni a 974450651 Active 2021 Not Available [facility] 2 01:26:47 Acute urinary tract infectio n 993995904 Active 2022 TALAT CROWLEY [address] [place] [address] [place], [address], [facility] [place] 3 11:39:05 Pain in limb 16693209 Active 2022 TALAT CROWLEY [address] [place], [address], [facility] [place] 3 11:39:51 Pain in limb 92798931 Active 2022 TALAT CROWLEY [address] [place], [address], [facility] [place] 3 11:42:46 Pain of left shoulder joint 9482239593 6836744 Active 2022 TALAT CROWLEY [address] [place] [address], [address], [facility] [place] 3 08:44:43 Impingem ent syndrome of left shoulder region 2266550453 08197 Active 2022 TALAT CROWLEY [address] [place] [address], [address], [facility] [place] 3 12:35:14 Rupture of rotator cuff of left shoulder 4292751671 2264981 Active 2022 Kaden Lacy DO [address] [place] [address], [address], [facility] [place] 3 15:34:24 Nausea 649997019 Active 2022 TALAT CROWLEY [address] [place] [address], [address], [facility] [place] 3 11:00:26 Serous otitis media 75807010 Active 2022 Kaden Lacy DO [address] [place] [address], [address], [facility] [place] 3 14:35:45 Candidia sis of skin 52160930 Active 2022 TALAT CROWLEY [address] [place] [address], [address], [facility] [place] 3 11:03:52 Cellulit is 293500861 Active 2022 TALAT CROWLEY [address] [place] [address], [address], [facility] [place] 3 11:04:19 Low back pain 903148406 Active 2023 Kaden Lacy, DO [address] [place] [address], [address], [facility] [place] 4 16:33:54 Alcohol dependen ce 16439136 Active 2023 TALAT CROWLEY [address] [place] [address], [address], [facility] [place] 4 14:22:05 Dementia 42111281 Active 2023 TALAT CROWLEY [address] [place] [address], [address], [facility] [place] 4 14:23:05 Neuralgi a 80806723 Active 2023 TALAT CROWLEY [address] [place] [address], [address], [facility] [place] 4 14:23:35 Multiple joint pain 51292051 Active 2023 TALAT CROWLEY [address] [place] [address], [address], [facility] [place] 4 14:24:39 Parkinso nism 39968346 Active 2023 TALAT CROWLEY [address] [place] [address], [address], [facility] [place] 4 14:25:48 Fatigue 71297151 Active 2023 TALAT CROWLEY [address] [place] [address], [address], [facility] [place] 4 14:27:54 Chronic tympanit is 07811045 Active 2023 Kaden Lacy, DO [address] [place], [address], [facility] [place] 4 16:45:01 Chronic tympanit is 37291244 Active 2023 Kaden Lacy, DO [address] [place], [address], [facility] [place] 4 16:45:12 Acute otitis media 1896939 Active 2023 Kaden Lacy, DO [address] [place], [address], [facility] [place] 4 17:16:02 Pneumoni a 129623713 Active 2023 Kaden Lacy, DO [address] [place] [address], [address], [facility] [place] 4 14:45:23 Syncope 512207545 Active 2023 TALAT CROWLEY [address] [place], [address], [facility] [place] 4 14:50:46 Uncontro lled type 2 diabetes mellitus 526530203 Active 2023 TALAT CROWLEY [address] [place] [address], [address], [facility] [place] 4 14:56:03 Glaucoma 28199850 Active 2023 TALAT CROWLEY [address] [place] [address], [address], [facility] [place] 4 14:58:35 Glaucoma 99578892 Active 2023 TALAT CROWLEY [address] [place] [address], [address], [facility] [place] 4 15:00:17 Abnormal cortisol 225446501 Active 2023 TALAT CROWLEY [address] [place], [address], [facility] [place] 4 15:00:44 Ataxia 07938271 Active 2023 Kaden Lacy, DO [address] [place], [address], [facility] [place] 4 22:56:42 Pain of ear 687204918 Active 2023 Kaden Lacy, DO [address] [facility], [place], [address], [facility] [place] 4 16:02:54 Insomnia 249970691 Active 2023 Kaden Lacy, DO [address] [facility], [place], [address], [facility] [place] 4 16:07:33 Streptoc occal infectio us disease 80046053 Active 2023 TALAT CROWLEY [address] [place] [address], [address], [facility] [place] 4 11:23:35 Postoper ative wound infectio n 99110287 Active 2023 Kaden Lacy, DO [address] [place] [address], [place], [address], [facility] [place] 4 11:26:51 Impacted cerumen of bilatera l ears 8478910347 901349 Active 2024 TALAT CROWLEY [address] [place] [address], [address], [facility] [place] 5 16:15:52 Chronic maxillar y sinusiti s 23813000 Active 2024 TALAT CROWLEY [address] [place] [address], [address], [facility] [place] 5 16:16:17 Acute sinusiti s 68948615 Active 2024 TALAT CROWLEY [address] [place], [address], [facility] [place] 5 16:16:27 Basal cell carcinom a of lower extremit y 555493457 Active 2024 TALAT CROWLEY [address] [place], [address], [place] [facility] 5 16:20:10 Posterio r rhinorrh ea 41088981 Active 2024 TALAT CROWLEY [address] [place], [address], [place] [facility] 5 16:50:47 Acute left otitis media 634698587 Active 2024 TALAT CROWLEY [address] [place], [address], [place] [facility] 5 11:24:59 Asthma 758465496 Completed 201705/24/2018 Kaden Lacy DO [address] [place], [address], [facility] [place] 9 15:53:30 Type 2 diabetes mellitus 38729637 Completed 201705/24/2018 Kaden Lacy, [address] [place], [address], [facility] [place] 9 15:54:53 Gastroes ophageal reflux disease 539802094 Completed 201705/24/2018 Veronica corley [facility] 9 15:32:51 Disorder of gallblad saleem 44270864 Completed 201705/24/2018 cholecys testomy Veronica corley [facility] 9 15:32:51 Weakness of left leg 8328993388 3333838 Completed 201705/24/[address] [facility] 9 15:32:51 Weakness of right leg 3975523436 7960287 Completed 201705/24/2018 Veronica corley [facility] 9 15:32:51 Serous otitis media 11209705 Completed 201705/24/[address] [facility] 9 15:32:51 Problem Notes None recorded. Procedures Surgical History Date Name Laterality Status Provider Name and Address Organization Details Recorded Time 5 Cerumen Removal completed TALAT CROWLEY [address] [place], [address], [facility] 07/04/2024 11:36:20 5 Cerumen Removal completed TALAT CROWLEY [address] [place], [address], [facility] 06/06/2024 16:21:58 Imaging Results None recorded. Procedure Notes None recorded. Medical Equipment None Reported. Allergies Allergen ID Allergen Name Allergen Category Reaction Reaction Severity Criticality Documentation Date Start Date Code Code System Note Provider Name and Address Organization Details Recorded Time 119 amoxicill in medicatio n Not available Not available Not available 05/28/2017 723 RxNorm Veronica Cleaning [facility] 9 15:32:49 120 losartan medicatio n dizziness Not available Not available 05/28/2017 77562 RxNorm Veronica Cleaning [facility] 9 15:32:49 3148 Product containin g penicilli n (product) medicatio n rash Not available Not available 09/24/2018 57972 8001 SNOMED Beth BROCK Madsen [address] [place], [address], [facility] 9 11:20:38 4225 tetanus and diphtheri a toxoids Not available angioedem a moderate Not available 03/19/20202004 [id number] UNSindy Lacy DO [address] [place], [address], [facility] 0 16:02:19 Medications Name Sig Start Date [...] Not Available Not Available Not Available Basaglgiacomo KwikPen U-100 Insulin 100 unit/mL (3 mL) subcutane ous Inject 20 units every day by subcutan eous route in the evening for 30 days. active taking in the AM due to sugar issues at night vs am and adding back on glimepri de for control while working on the insulin dosing Not Available Not Available Not Available Fluzone High-Dose 9966-2178 (PF) 180 mcg/0.5 mL intramusc ular syringe [...] Not Available Not Available Fluzone High-Dose Quad 2019- (PF) 240 mcg/0.7 mL IM syringe ADM [...] Details Last Updated DateTime 5 158.75 cm 33.3 kg/m2 76133.5 9 g 106 /min 97 % 97 % 120 mm[Hg] 72 mm[Hg] Priscila Grover [facility] 5 10:08:10 Date Recorded Body height Body mass index (BMI) Body weight Heart rate Oxygen saturation Oxygen saturation in Arterial blood by Pulse oximetry Systolic blood pressure Diastolic blood pressure Provider Name and Address Organization Details Last Updated DateTime 5 158.75 cm 32.1 kg/m2 15226.1 6 g 130 /min 98 % 98 % 108 mm[Hg] 68 mm[Hg] Yamilet Garcia [facility] 5 15:02:55 Date Recorded Body height Body mass index (BMI) Body weight Heart rate Oxygen saturation Oxygen saturation in Arterial blood by Pulse oximetry Systolic blood pressure Diastolic blood pressure Provider Name and Address Organization Details Last Updated DateTime 5 158.75 cm 32.4 kg/m2 29798.3 5 g 105 /min 97 % 97 % 136 mm[Hg] 84 mm[Hg] Yamilet Garcia [facility] 5 13:49:37 Date Recorded Body height Body mass index (BMI) Body weight Heart rate Oxygen saturation Oxygen saturation in Arterial blood by Pulse oximetry Systolic blood pressure Diastolic blood pressure Provider Name and Address Organization Details Last Updated DateTime 5 158.75 cm 31.8 kg/m2 25348.7 7 g 123 /min 95 % 95 % 116 mm[Hg] 72 mm[Hg] Yamilet Garcia [facility] 5 11:00:29 Social History Question Answer Notes LastModified by Organizat ion Details LastModified Time Tobacco Smoking Status Never Smoker Not Available [facility] 01/30/2020 03:36:24 What Was The Date Of [...] mcg/0.3 mL dose 1 completed Not Available [facility] 03/14/2022 01:26:47 Influenza, split virus, quadrivalent, preservative 1 completed Not Available [facility] 03/14/2022 01:26:47 zoster recombinant 2 completed Not Available [facility] 03/14/2022 01:26:47 zoster recombinant 2 completed Haylie corley [facility] 04/03/2022 08:38:31 influenza, unspecified formulation 2 completed Haylie corley [facility] 04/03/2022 08:38:46 COVID-19, mRNA, LNP-S, PF, 30 mcg/0.3 mL dose 1 completed Haylie corley [facility] 04/03/2022 08:39:05 influenza, unspecified formulation 4 completed Fermín corley [facility] 01/25/2024 15:52:01 Pneumococcal conjugate PCV20, polysaccharide TZQ407 conjugate, adjuvant, PF 4 completed Fermín corley [facility] 01/25/2024 15:52:27 Influenza, split virus, quadrivalent, preservative 9 completed Not Available [facility] 03/14/2022 01:26:47 Influenza, split virus, quadrivalent, preservative 0 completed Not Available [facility] 03/14/2022 01:26:47 COVID-19, mRNA, LNP-S, PF, 30 mcg/0.3 mL dose 1 completed Not Available [facility] 03/14/2022 01:26:47 Past Encounters Encounter ID Performer Location Encounter Start Date Encounter Closed Date Diagnosis/Indication Diagnosis SNOMED-CT Code Diagnosis ICD10 Code Diagnosis Note [id number] [facility] [address] [facility], [place] [address] 07/02/2017 14:27:54 07/02/2017 15:15:25 Type 2 diabetes mellitus 87024562 E11.9 discussed dm treatment only using metfrmin need to add med doesnt want insulin will try to add januvia 100 once a day Asthma 024971377 J45.90 9 on and off prednisone followed by dr medina [id number] Kaden Lacy [facility] [address] [facility], [place] [address] 10/13/2017 15:46:42 10/13/2017 16:32:43 Type 2 diabetes mellitus 07637985 E11.9 dhas been doing well with exercise but a1c is 8.6 willchange back to metformin and take 500 bid hold on januvia Serous otitis media 8032 7007 H65.90 cont with otc decongest Asthma 664205228 J45.90 9 no longer on prednisone [id number] BROCK Madsen [facility] [address] [facility], [place] [address] 11/23/2017 15:52:21 11/23/2017 16:49:32 Acute right otitis media 779400319 H66.91 Asthma 604985836 J45.90 9 stable/savannah et Type 2 chapis betes mellitus 97372255 E11.65 [id number] Kaden Lacy [facility] [address] [facility], [place] [address] 01/24/2018 15:17:28 01/26/2018 08:18:22 Type 2 diabetes mellitus 12697369 E11.9 dhas been doing well with exercise but a1c is 8.6 willchange back to metformin and take 500 bid hold on januvia Asthma 525202254 J45.90 9 no longer on prednisone doing welll and is feeling well without having to use her inhaler Adult [facility] th examination 860937547 Z00.00 Screening for cardiovascular system disease 743945102 Z13.6 Screening for osteoporosis 822635782 Z13.820 Screening mammography 24 855295 Z12.31 [id number] Kaden Lacy [facility] [address] [facility] [address] [place] [address] 05/24/2018 15:28:02 05/24/2018 16:00:51 Type 2 diabetes mellitus 38949188 E11.9 has been doing well with exercise but a1c is 7.2 is followed by diabetes center lab report pending will change back to metformin and take 500 bid hold on januvia Hypertensive disorder 38 086775 I10 stable on lisinopril Asthma 811631544 J45.90 9 no longer on prednisone only with occ taper as needed is using Qvar from [facility] doing well and is feeling well without having to use her inhaler [id number] Kaden Lacy DO [facility] [address] [facility] [address], [place] [address] 09/14/2018 14:25:08 09/14/2018 14:58:28 Hypertensive disorder 62465031 I10 stable on lisinopril no cough Type 2 chapis betes mellitus 98617005 E11.9 had been doing well with exercise but a1c is 8.0 is followed by diabetes center lab report pending will change back to metformin and take 500 bid hold on januvia pt will try to lower on her own Asthma 685963381 J45.90 9 no longer on prednisone only with occ taper as needed is using Qvar from [facility] doing well and is feeling well without having to use her inhaler [id number] Kaden Lacy DO [facility] [address] [facility],[place] [address] 12/28/2018 16:04:26 12/28/2018 16:36:41 Asthma 070750171 J45.909 no longer on prednisone only with occ taper as needed ihas stopped qvar due to recent thrush episode will hold and will have [facility]see pulmon next mon pulmonolog ist having her take BEvspi inhaler doing well and is feeling well Hypertensive disorder 38 353792 I10 stable on lisinopril no cough Type 2 chapis betes mellitus 53164775 E11.9 had been doing well with exercise but a1c is 8.0 is followed by diabetes center lab report pending will change back to metformin and take 500 bid hold on januvia pt will try to lower on her own Acute pharyngitis 705021 003 J02.9 will start he on doxycyclin e [id number] Kaden Lacy [facility] [address] [facility] [address] 04/05/2019 15:39:06 04/05/2019 16:14:00 Hypertensive disorder 14606289 I10 stable on lisinopril no cough Asthma 456560342 J45.90 9 no longer on prednisone only with occ taper as needed ihas stopped qvar due to recent thrush episode will hold and will have [facility]see pulmon next mon pulmonolog ist having her take BEvspi inhaler still having episode of gasping while asleep and this occurs sporadical ly Type 2 chapis betes mellitus 02540575 E11.9 had been doing well with exercise but a1c is 9.5 is followed by diabetes center lab report pending back on metformin and take 500 bid discussed need to get glucose down not being careful with diet not exercising she must [facility] and get in with them [id number] Kaden Lacy [facility] [address] [facility] [address] [address] 08/07/2019 15:57:38 08/07/2019 16:30:27 Type 2 diabetes mellitus 51953908 E11.9 had been doing well with exercise but a1c down to 8.2 and was 9.5 is followed by diabetes center lab report pending back on metformin and take 500 bid discussed need to get glucose down trying to being careful with diet not exercising she must call the diabetes center and get in with them Asthma [id number] J45.90 9 no longer on prednisone only with occ taper as needed now using qvar again pulmonolog ist having her take BEvspi inhaler had one episode of gasping while asleep and this occurs sporadical ly Hypertensive disorder 38 822451 I10 stable on lisinopril no cough [id number] Kaden Lacy [facility] [address] [facility],[place] [address] 12/11/2019 16:09:22 12/12/2019 08:11:51 Hypertensive disorder 22063555 I10 stable on lisinopril no cough Asthma 843265565 J45.90 9 using qvar again and getting through [place] had one episode of gasping while asleep and this occurs sporadical ly has been using proair Type 2 chapis betes mellitus 35211386 E11.9 had been doing well with exercise but a1c down to 7.6 and 8.2 and was 9.5 is followed by diabetes center metformin and is having a lot of GI problems and states has cut down to one a day and is sl better so we will have her stop the metformin trying to being careful with diet is walking some [id number] Kaden Lacy [facility] [address] [facility],[place] [address] 03/19/2020 15:11:03 03/19/2020 16:11:37 Hypertensive disorder 19434827 I10 stable on lisinopril no cough Asthma 831048913 J45.90 9 told needs pneumovax using qvar again and getting through [place] had one episode of gasping while asleep and this occurs sporadical ly has been using proair Type 2 chapis betes mellitus 38189569 E11.9 had been doing well with exercise but a1c down to 7.2 was 7.6 and 8.2 and was 9.5 is followed by diabetes center metformin and is having a lot of GI problems and states has cut down to one a day and is sl better so we will have her stop the metformin trying to being careful with diet is walking some Degenerati on of lumbar intervertebral disc 75458885 M51.[address] mc just received a epidural [id number] Kaden Lacy [facility] [address] [facility],[place] [address] 07/08/2020 16:05:58 07/09/2020 14:36:24 Type 2 diabetes mellitus 84157655 E11.9 had been doing well with exercise but a1c down to 7.2 and was 7.2 and before was 7.6 and 8.2 and was 9.5 is followed by diabetes center trying to being careful with diet is walking some but feet are starting to bother Asthma 813952338 J45.90 9 told needs pneumovax using qvar again and getting through [place] had one episode of gasping while asleep and this occurs sporadical ly has been using proair Hypertensive disorder 38 034466 I10 stable on lisinopril no cough Numbness of foot 1355140 00 R20.0 [id number] Kaden Lacy [facility] [address] [facility],[place], [place] 7 10/23/2020 09:34:29 10/23/2020 10:02:10 Asthma 573910502 J45.909 told needs pneumovax using qvar again and getting through [place] had one episode of gasping while asleep and this occurs sporadical ly has been using proair Pneumonitis 460988165 J1 8.9 continue the levaquin for 3 more days will add jose AC Hypertensive disorder 38 886587 I10 stable on lisinopril no cough [id number] Kaden Lacy [facility] [address] [facility],[place] [address] 11/12/2020 15:30:28 11/12/2020 16:29:54 Hypertensive disorder 07740106 I10 stable on lisinopril no coughdenie s any cp and sob Asthma 906272152 J45.90 9 told needs pneumovax using qvar again and getting through [place] had one episode of gasping while asleep and this occurs sporadical ly has been using proair Type 2 chapis betes mellitus 15927003 E11.9 had been doing well with exercise but a1c back up to 8.6 from 7.2 and was 7.2 and before was 7.6 and 8.2 and was 9.5 is followed by diabetes center trying to being careful with diet is walking some but feet are starting to bother and her feet are feeling odd and are a prob with walking and stairs Degenerati on of lumbar intervertebral disc 85545180 M51.[address] mc but just had an EMG NCT test from dr Ayon\ and we are waiting for the report [id number] Kaden Lacy [facility] [address] [facility],[place] [facility] [place] [address] 03/11/2021 08:12:02 03/11/2021 16:33:17 Type 2 diabetes mellitus 69985829 E11.65 a1c back up to 9.3 from 8.6 from 7.2 and was 7.2 and before was 7.6 and 8.2 and was 9.5 trying to being careful with diet but she had been getting cortisone injections into her back is walking some but feet are still bothering and her feet are feeling odd and are a prob with walking and stairs also told her to consider trying trulicity etc she refuses insulin outright no matter what i warned her not to cut treatment options as the dm must have better control Hypertensive disorder 38 722457 I10 her bp was elevated lately lisinopril 5mgstates she seems to be up and down from 160/82 down to 130's so avg 140-50/70- 80sno cough but pulse is avg 100denies any cp and sob Degenerati on of lumbar intervertebral disc 58012951 M51.[address] mc but just had an EMG NCT test from dr Ayon\ and we are waiting for the report Asthma 876726618 J45.90 9 seems to be stable relates that she has not been bothered too much with asthmausin g qvar again and getting through [place] had one episode of gasping while asleep and this occurs sporadical ly has been using proair [id number] Kaden Lacy [facility] [address] [facility],[place] [facility] [place] [address] 06/27/2021 09:59:39 06/27/2021 15:45:13 Type 2 diabetes mellitus 97983392 E11.65 a1c back up to 9.3 again 9.3 from 8.6 from 7.2 and was 7.2 and before was 7.6 and 8.2 and was 9.5 i have told her that the glucose readings are too high and that she needs to be on insulin and she refuses wants to try on her own ( again) she has done this mult times in the past also told her to consider trying trulicity etc she refuses insulin outright no matter what i warned her not to cut treatment options as the dm must have better control COVID-19 425374610 U07.1 [id number] TALAT CROWLEY [facility] Internal Medicine [address] [facility],[place] [address] 10/21/2021 11:24:32 10/21/2021 13:20:24 Muscle pain 70004288 M79.18 will fu with blood work Type 2 chapis betes mellitus 27165876 E11.65 will f/u with normal A1c draw [id number] TALAT CROWLEY [facility] Internal Medicine [address] [facility] [address] [address],[place] [address] 11/25/2021 11:17:07 11/25/2021 12:00:46 Muscle weakness 13016802 M62.[address] and neuro eval Muscle pain 08936594 M79 .18 start on tramadol PRN for sleep when pain is worse [id number] Kaden Lacy, [facility] Medicine [address] [facility],[place] [address] 12/16/2021 15:58:01 12/16/2021 16:54:27 Type 2 diabetes mellitus 04499531 E11.65 a1c back up to 9.3 again 9.3 from 8.6 from 7.2 and was 7.2 and before was 7.6 and 8.2 and was 9.5 i have told her that the glucose readings are too high and that she needs to be on insulin and she refuses wants to try on her own ( again) she has done this mult times in the past also told her to consider trying trulicity etc she refuses insulin outright no matter what i warned her not to cut treatment options as the dm must have better control Asthma 410735637 J45.90 9 seems to be stable relates that she has not been bothered too much with asthmausin g qvar again and getting through [place] had one episode of gasping while asleep and this occurs sporadical ly has been using proair Hypertensive disorder 38 236372 I10 her bp was elevated lately lisinopril 5mgstates she seems to be up and down from 160/82 down to 130's so avg 140-50/70- 80sno cough but pulse is avg 100denies any cp and sob Polymyalgi a rheumatica 16006548 M35.3 she certainly fits the clinical picture and with the partial response to low dose pred we will treat her [id number] Kaden Lacy, DO [facility] Medicine [address],[place] [address] 12/29/2021 10:00:19 12/29/2021 10:50:43 Hypertensive disorder 22721727 I10 her bp was elevated lately lisinopril 5mgstates she seems to be up and down from 160/82 down to 130's so avg 140-50/70- 80sno cough but pulse is avg 100denies any cp and sob Type 2 chapis betes mellitus 60446155 E11.65 a1c back down to 8.7 was 9.3 again 9.3 from 8.6 from 7.2 and was 7.2 and before was 7.6 and 8.2 and was 9.5 i have told her that the glucose readings are still too high and that she needs to be on insulin and she refuses wants to try on her own ( again) she has done this mult times in the past also told her to consider trying trulicity etc she refuses insulin outright no matter what i warned her not to cut treatment options as the dm must have better control Polymyalgi a rheumatica 68465937 M35.3 she certainly fits the clinical picture and with the partial response to low dose pred we will treat her Asthma 468896092 J45.90 9 seems to be stable relates that she has not been bothered too much with asthmausin g qvar again and getting through [place] had one episode of gasping while asleep and this occurs sporadical ly has been using proair Candidiasis of vagina 72 082403 B37.31 Candidiasis of mouth 797 72327 B37.0 [id number] Kaden Lacy, [facility] [address] [facility],[place] [address] 03/11/2022 08:51:28 03/11/2022 14:23:13 Left lower zone pneumonia 726646914 J18.1 we will treat her with levofloxac in 500 Hypertensive disorder 38 352038 I10 her bp was elevated lately lisinopril 5mgstates she seems to be up and down from 160/82 down to 130's so avg 140-50/70- 80sno cough but pulse is avg 100denies any cp and sob Type 2 chapis betes mellitus 09533570 E11.65 a1c back down to 8.7 was 9.3 again 9.3 from 8.6 from 7.2 and was 7.2 and before was 7.6 and 8.2 and was 9.5 i have told her that the glucose readings are still too high and that she needs to be on insulin and she refuses wants to try on her own ( again) she has done this mult times in the past also told her to consider trying trulicity etc she refuses insulin outright no matter what i warned her not to cut treatment options as the dm must have better control [id number] Kaden Lacy, [facility] [address] [facility],[place] [address] 04/03/2022 13:24:15 04/03/2022 14:56:30 Asthma 685792297 J45.909 seems to be stable relates that she has not been bothered too much with asthmausin g qvar again and getting through [place] had one episode of gasping while asleep and this occurs sporadical ly has been using proair Type 2 chapis betes mellitus 84416654 E11.65 a1c is now up to 11.3 was down to 8.7 was 9.3 again 9.3 from 8.6 from 7.2 and was 7.2 and before was 7.6 and 8.2 and was 9.5 i have told her that the glucose readings are still too high and that she needs to be on insulin and she refuses wants to try on her own ( again) she has done this mult times in the pastbegged her to eat better stop ordering out if possgiven this we will try ozempic 0.5 mg weekly Hypertensive disorder 38 461527 I10 her bp was elevated lately lisinopril 5mgstates she seems to be up and down from 160/82 down to 130's so avg 140-50/70- 80sno cough but pulse is avg 100denies any cp and sob Polymyalgi a rheumatica 46616550 M35.3 is hurting quite a bit and the pred 20 is not helping hershe will be seeing rheum on wednesday so we will increase to 40 until then Left lower zone pneumonia 397106781 J18.1 we will treat her with levofloxac in 500 [id number] TALAT CROWLEY [facility] Internal Medicine [address] [facility] [address],[place] [address] 05/15/2022 10:55:47 05/15/2022 13:52:30 Acute urinary tract infection 062819925 N10 start on bactrim Pain in limb 62084198 M7 9.602 fell on her left arm and possible biceps tear?agree d to XR, may need MRI Type 2 chapis betes mellitus 73379012 E11.65 the patient reports the she was started on ozempicwas n't using it correctly at first now working really well to control her [id number] Kaden Lacy DO [facility] Internal Medicine [address] [facility] [address],[place] [address] 07/01/2022 14:13:49 07/01/2022 16:07:55 Hepatitis C screening 628675650 Z11.59 [address] [place] [address] (ORDER DESK CLERK) MDM MODERATE MUST MEET 2 OUT OF 3 ELEMENTS: PROBLEMS, DATA OR RISK ELEMENT 1: PROBLEMS ADDRESSED 1 OR MORE CHRONIC ILLNESS WITH EXACERBATI ON OR 2 OR MORE STABLE CHRONIC ILLNESSES OR 1 UNDIAGNOSE D NEW PROBLEM OR 1 ACUTE ILLNESS W/SYMPTOMS OR 1 ACUTE COMPLICATE D INJURY ELEMENT 2: DATA MUST MEET 1 OF 3 CATEGORIES CATEGORY 1: REVIEW OF PRIOR EXTERNAL NOTES, REVIEW OF RESULTS, ORDERING OF EACH TEST, ASSESSMENT REQUIRING INDEPENDEN T HISTORIAN OR CATEGORY 2: INDEPENDEN T INTERPRETA TION OF TESTS BY ANOTHER PHYSICIAN OR SPECIALIST OR CATEGORY 3: DISCUSSION OF MGT OR TEST INTERPRETA TION W/EXTERNAL PHYSICIAN OR SPECIALIST ELEMENT 3: RISK RISK OF COMPLICATI ONS AND/OR MORBIDITY OR MORTALITY OF PATIENT MANAGEMENT PROVIDER MUST THOROUGHLY DOCUMENT EACH ELEMENT THAT IS COVERED Type 2 chapis betkaitlin mellitus 74812405 E11.65 a1c is now up to 11.3 was down to 8.7 was 9.3 again 9.3 from 8.6 from 7.2 and was 7.2 and before was 7.6 and 8.2 and was 9.5 i have told her that the glucose readings are still too high and that she needs to be on insulin and she refuses wants to try on her own ( again) she has done this mult times in the pastbegged her to eat better stop ordering out if possgiven this we will try ozempic 0.5 mg weekly Hypertensive disorder 38 491073 I10 her bp was elevated lately lisinopril 5mgstates she seems to be up and down from 160/82 down to 130's so avg 140-50/70- 80sno cough but pulse is avg 100denies any cp and sob Rupture of rotator cuff of left shoulder 7295100322 6957022 M75.102 Gastroesop hageal reflux disease without esophagitis 109246750 K21.9 [id number] Kaden Lacy, [facility] [address],[place] [address] 10/14/2022 11:34:36 10/14/2022 14:39:35 Asthma 007777481 J45.909 seems to be stable relates that she has not been bothered too much with asthmausin g qvar again and getting through [place] had one episode of gasping while asleep and this occurs sporadical ly has been using proair Hypertensive disorder 38 525987 I10 her bp was elevated lately lisinopril 5mgstates she seems to be up and down from 160/82 down to 130's so avg 140-50/70- 80sno cough but pulse is avg 100denies any cp and sob Myalgia/my ositis - multiple 390980739 M79.10 [address] [place] [address] (ORDER DESK CLERK) MDM MODERATE MUST MEET 2 OUT OF 3 ELEMENTS: PROBLEMS, DATA OR RISK ELEMENT 1: PROBLEMS ADDRESSED 1 OR MORE CHRONIC ILLNESS WITH EXACERBATI ON OR 2 OR MORE STABLE CHRONIC ILLNESSES OR 1 UNDIAGNOSE D NEW PROBLEM OR 1 ACUTE ILLNESS W/SYMPTOMS OR 1 ACUTE COMPLICATE D INJURY ELEMENT 2: DATA MUST MEET 1 OF 3 CATEGORIES CATEGORY 1: REVIEW OF PRIOR EXTERNAL NOTES, REVIEW OF RESULTS, ORDERING OF EACH TEST, ASSESSMENT REQUIRING INDEPENDEN T HISTORIAN OR CATEGORY 2: INDEPENDEN T INTERPRETA TION OF TESTS BY ANOTHER PHYSICIAN OR SPECIALIST OR CATEGORY 3: DISCUSSION OF MGT OR TEST INTERPRETA TION W/EXTERNAL PHYSICIAN OR SPECIALIST ELEMENT 3: RISK RISK OF COMPLICATI ONS AND/OR MORBIDITY OR MORTALITY OF PATIENT MANAGEMENT PROVIDER MUST THOROUGHLY DOCUMENT EACH ELEMENT THAT IS COVERED Type 2 chapis tolu mellitus 92307782 E11.65 a1c is nowat 8.5 to 11.3 was down to 8.7 was 9.3 again 9.3 from 8.6 from 7.2 and was 7.2 and before was 7.6 and 8.2 and was 9.5 i have told her that the glucose readings are still too high and that she needs to be on insulin and she refuses wants to try on her own ( again) she has done this mult times in the pastbegged her to eat better stop ordering out if possgiven this we will try ozempic 0.5 mg weekly [id number] Kaden Lacy DO [facility] Internal Medicine [address],[place] [address] 01/13/2023 13:55:12 01/13/2023 15:27:53 Serous otitis media 92992978 H65.90 cont with otc decongest Hypertensive disorder 38 457249 I10 her bp was elevated lately lisinopril 5mgstates she seems to be up and down from 160/82 down to 130's so avg 140-50/70- 80sno cough but pulse is avg 100 will increase to 10mgdenies any cp and sob Polymyalgi a rheumatica 40601317 M35.3 is hurting quite a bit and the pred 20 is not helping hershe will be seeing rheum on wednesday so we will increase to 40 until then Type 2 chapis tolu mellitus 86192907 E11.65 a1c is nowat 9.9 she is back on pred and [...] still high will insist on lantus y [id number] TALAT CROWLEY [facility] Internal Medicine [address],[place] [address] 03/02/2023 10:53:01 03/02/2023 13:38:36 Candidiasis of skin 60540653 B37.2 will set up with topical cream Cellulitis 751398680 L03 .314 will set up with keflex for risk of infection [id number] Kaden Lacy DO [facility] Internal Medicine [address] [facility],[place] [address] 03/16/2023 08:26:55 03/16/2023 15:13:33 Asthma 811023226 J45.909 seems to be stable relates that she has not been bothered too much with asthmausin g qvar again and getting through [place] has not required a inhalersee s dr medina in one episode of gasping while asleep and this occurs sporadical ly has been using proair Hypertensive disorder 38 609479 I10 her bp was elevated lately lisinopril 5mgstates she seems to be up and down from 160/82 down to 130's so avg 140-50/70- 80sno cough but pulse is avg 100 will increase to 10mgdenies any cp and sob Type 2 chapis betes mellitus 31501742 E11.65 a1c is nowat 9.9 she is back on pred and [...] still high will insist on lantus y Polymyalgi a rheumatica 57689242 M35.3 she is down to pred 10mg and still has a lot of stiffness and weakness unfortunat oscar her sugars are still highwill be seeing rheumatolo gist next week Impingemen t syndrome of left shoulder region [id number] 78532 M75.42 still having some discomfort despite the surgery wondering if the PMR is involved [id number] TALAT CROWLEY [facility] Medicine [address] [facility], [place] [facility] [place] [address] 07/09/2023 13:55:21 07/09/2023 15:10:31 Muscle weakness 78427606 M62.81 agreed to blood work Dementia 65865856 F03.90 will need to have an evaluation with a Mini Mental Exam Neuralgia 87969707 M79.2 may need to fu with neurologis t Multiple joint pain 3567 8005 M25.50 agreed to lab work funeeds MRI of her brain as well Parkinsonism 07064660 G2 0.C will set up with MRI of her brain Fatigue 65641598 R53.83 agreed to lab work [id number] Kaden Lacy [facility] [address] [facility] [address] [address], [place] [facility] [place] [address] 07/16/2023 10:57:47 07/16/2023 13:52:54 [id number] Kaden Lacy [facility] [address] [facility], [address] [facility] [address] 07/30/2023 13:26:49 07/30/2023 15:58:51 Asthma 528342760 J45.909 seems to be stable relates that she has not been bothered too much with asthmausin g qvar again and getting through [place] has not required a inhalersee s dr medina in one episode of gasping while asleep and this occurs sporadical ly has been using proair Hypertensive disorder 38 065676 I10 her bp was elevated lately lisinopril 5mgstates she seems to be up and down from 160/82 down to 130's so avg 140-50/70- 80sno cough but pulse is avg 100 will increase to 10mgdenies any cp and sob Type 2 chapis betes mellitus 08059913 E11.65 a1c is now at 9.9 she is [...] still high will insist on lantus y Polymyalgi a rheumatica 83101068 M35.3 she is down to pred 2.5 mg and still has a lot of stiffness and weakness unfortunat oscar her sugars are still highwill be seeing rheumatolo gist couple monthsshe did not tolerate 2.5 mg prob due to adrenal deficiency we will decrease by 1 mg every couple weeks [id number] Kaden Lacy DO [facility] Internal Medicine [address] [facility],[place] [address] 08/04/2023 14:06:55 08/04/2023 15:01:45 Depression screening 274577027 Z13.31 Neg Screening Pneumonia 792079161 J18. 9 cont with z jumana and cefdinir Candidiasis of mouth 797 51147 B37.0 Nausea 531246214 R11.0 [id number] TALAT CROWLEY [facility] Internal Medicine [address] [facility],[place] [address] 11/01/2023 14:17:32 11/01/2023 15:50:10 Syncope 693601324 R55 will set up with CT head (MRI got denied) Uncontroll ed type 2 diabetes mellitus 825368393 E11.649 needs tests strips Glaucoma 07293063 H40.00 3 seeing eye doctor Abnormal cortisol 339483 003 R94.7 agreed to get cortisol checked with 24 hour urine to check cortisol levels [id number] Kaden Lacy DO [facility] Internal Medicine [address] [facility],[place] [address] 11/22/2023 14:09:49 11/23/2023 08:22:17 Adult health examination 266023501 Z00.00 currently stable lab recent not done a1c is pending Screening for cardiovascular system disease 717436041 Z13.6 Screening for malignant neoplasm of colon 804438792 Z12.11 Screening for osteoporosis 109640002 Z13.820 Screening mammography 24 581790 Z12.31 Uncontroll ed type 2 diabetes mellitus 807223460 E11.649 a1c is pending 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 i d ont believe this is true and that it is from years of uncontroll ed dm pt remains unconvince d even though i explained bilat numbness of sole equal bilat Multiple joint pain 3567 8005 M25.50 about the same Ataxia 95753290 R27.0 pt cancelled PT eval because she didnt want to go yet complains of the unsteadine sspt with excuses for everything discussed on why she wont do things or stopping meds etcwe will see what ct shows as i am concerned she may have NPH with gait and memory issues [id number] Kaden Lacy DO [facility] Internal Medicine [address] [facility] [address],[place] [address] 01/25/2024 15:38:51 01/25/2024 16:19:54 Streptococcal infectious disease 27663079 A49.1 Uncontroll ed type 2 diabetes mellitus 444242400 E11.649 a1c is 10 diet is very questionab le 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 i d ont believe this is true and that it is from years of uncontroll ed dm pt remains unconvince d even though i explained bilat numbness of sole equal bilat Pain of ear 510290335 H9 2.09 Insomnia 106700021 G47.0 0 [id number] TALAT CROWLEY [facility] Internal Medicine [address] [facility], [place] [address] 02/15/2024 10:53:59 02/15/2024 11:33:38 Streptococcal infectious disease 78683237 A49.1 negative rapidrecom mended start on z jumana [id number] Kaden Lacy DO [facility] Internal Medicine [address] [facility] [address],[place] [address] 04/19/2024 09:53:13 04/19/2024 10:56:35 Asthma 696095515 J45.909 seems to be stable relates that she has not been bothered too much with asthmausin g qvar again and getting through [place] has not required a inhalersee s dr medina in one episode of gasping while asleep and this occurs sporadical ly has been using proair Hypertensive disorder 38 357069 I10 her bp was elevated lately lisinopril 5mgstates she seems to be up and down from 160/82 down to 130's so avg 140-50/70- 80sno cough but pulse is avg 100 will increase to 10mgdenies any cp and sob Type 2 chapis betes mellitus 95037758 E11.65 a1c is now up to 11.5 not sure about diet and will need to treatdid not tolerate ozempicwil l start lantus at night at 5 units PRIOR a1c is now at 9.9 she [...] still high will insist on lantus y [id number] TALAT [facility] [address] [facility],[place] [address] 05/16/2024 14:52:53 05/16/2024 15:37:26 Pre-surgery evaluation [id number] Z01.818 The patient was seen in the office today for pre-op evaluation . All medical conditions on patient's problem list were addressed and are currently stable, no interventi on needed at this time. Based on history and physical performed, the patient is cleared for surgery. Type 2 chapis betes mellitus [id number] E11.65 stable [id number] [facility] [address] [facility],[place] [address] 06/06/2024 15:42:49 06/06/2024 16:45:17 Impacted cerumen of bilateral ears [id number] 561669 H61.23 cont debrox, left ear is still blocked Chronic vt xillary sinusitis [id number] J32.0 Acute sinusitis [id number] J01.01 Basal cell carcinoma of lower extremity [id number] C44.719 [id number] DO [facility] [address] [facility] [address] [address],Rosaline Patel [facility] [place] [address] 06/19/2024 13:34:40 06/19/2024 14:05:43 Asthma [id number] J45.909 seems to be stable relates that she has not been bothered too much with asthmausin g qvar again and getting through [facility] has not required a inhalersee s dr medina in one episode of gasping while asleep and this occurs sporadical ly has been using proair Type 2 chapis betes mellitus [id number] E11.65 a1c is now up to 11 [...] insist on lantus y Hypertensive disorder 38 442319 I10 her bp was elevated lately lisinopril 5mgstates she seems to be up and down from 160/82 down to 130's so avg 140-50/70- 80sno cough but pulse is avg 100 will increase to 10mgdenies any cp and sob Dementia [id number] F03.90 Depression screening 171 019872 Z13.31 Neg Screening [id number] [facility] [address] [facility] [address] [address],[place] [address] 07/04/2024 10:31:55 07/04/2024 14:51:34 Impacted cerumen of bilateral ears [id number] 618930 H61.23 cont debrox, left ear is still blocked Acute left otitis media [id number] H65.02 will start on ciprofloxa brent drops and anti-funga lwill send out for culture Health Concerns Section Related Observation LastModified by Organization Detai ls LastModified Time None Recorded Concern Status LastModified by Organization Details LastModified Time None Recorded Advance Directives Directive None Recorded Payers Encounter Date Sequence Insurance Name Policy Number Policy Clark Covered Member ID Clark Member ID Guarantor Name 04/19/2024 1 [facility]: MEDICARE PPO BLUE (MEDICARE REPLACEMENT PPO) [id number] Hina Lindsay [id number] Hina Lindsay 05/16/2024 1 [facility]: MEDICARE PPO BLUE (MEDICARE REPLACEMENT PPO) [id number] Hina Lindsay [id number] Hina Lindsay 06/06/2024 1 [facility]: MEDICARE PPO BLUE (MEDICARE REPLACEMENT PPO) [id number] Hina Lindsay [id number] Hina Lindsay 06/19/2024 1 [facility]: MEDICARE PPO BLUE (MEDICARE REPLACEMENT PPO) [id number] Hina Lindsay [id number] Hina Lindsay 07/04/2024 1 [facility]: MEDICARE PPO BLUE (MEDICARE REPLACEMENT PPO) [id number] Hina Lindsay [id number] Hina Lindsay Notes Date Note Type Note Provider Name and Address Organization Details Recorded Time 5 text/htm l Care Management - DiabetesReported bypatient.Self Care:seeing eye doctor yearly for dilated eye exam; checking feet regularly; normal range of home blood sugars (in the low 100s); no side effects from medications Associated Symptoms:symptoms are usually well controlled; no fatigue; no dizziness; no excessive sweating; no headaches; no confusion; no increased thirst; no increased appetite; no increased urination; no blurred vision; no numbness of feet; no calluses on feet here for rechk and relates that her sugars have been high Kaden Lacy, DO [address] [facility], [place], [address], [facility] 04/19/2024 10:41:40 5 text/htm l Pre-OpReported bypatient.Surgery to be Performed:05/25/24 and 06/08/[address] Cabrera cataract surgery, bilateral Right eye first, then Left eye Context/Condition Being Addressed:cataract surgery Location:bilateral eyes Severity:moderate Risk Factorsno cognitive impairment; no functional impairment; no malnutrition; no frailty; able to climb a flight of stairs (exercise capacity>4 METS); no obstructive sleep apnea; non-smoker; no alcohol misuse; no illicit drug use; no chronic cardiopulmonary condition; not obese Anesthesia hx:no hx of anesthesia complications; no allergy to anesthetic agents; no family history of anesthesia complications Functional Ability:able to walk up stairs; able to perform heavy work around the house; no difficulty walking up hills; does have some balance issues we are aware of, nothing severe enough to disqualify for surgery Post-Op Support:adequate assistance at home TALAT [facility] [address] [place], [address], [facility] [place] 05/16/2024 15:33:10 5 text/htm l ear lavage bilateral TALAT [facility] [address] [place], [address], [facility] [place] 06/06/2024 16:22:40 5 text/htm l Care Management - AsthmaReported bypatient.Severity:impro ving; does not interfere with daily activities; does not disturb sleep; does not cause nighttime awakening Associated Symptoms:no fever; no fatigue; no irritability; no cough; normal appetite; no change in productivityCare Management - DiabetesReported bypatient.Self Care:seeing eye doctor yearly for dilated eye exam; checking feet regularly; normal range of home blood sugars (in the low 100s); no side effects from medications Associated Symptoms:symptoms are usually well controlled; no fatigue; no dizziness; no excessive sweating; no headaches; no confusion; no increased thirst; no increased appetite; no increased urination; no blurred vision; no numbness of feet; no calluses on feetCare Management - HypertensionReported bypatient.Self Care:not under emotional stress Severity:symptoms are improving; does not interfere with daily activities Associated Symptoms:no dizziness; no lightheadedness; no chest pain; no shortness of breath; no palpitations; no edema; no calf muscle cramps; no blurred vision; no confusion; no headaches; no fatigue has gained 2 lbsrelates that she eats and then goes to bed told her thatshe needs to move more and not go to bed right after eatingadmits to not taking med basaglar at same timestates eats normally but daughter raised an eyebrow at that Kaden Mirella Lacy DO [address] [facility], [place], [address], [facility] [place] 06/19/2024 14:04:12 5 text/htm l L ear pain the patient reports severe [...] boarder coverage and fungal coverage TALAT [facility] [address] [facility], [place], [address], [facility] [place] 07/04/2024 11:36:24 OBGyn Episode No OBEpisode recorded.
== END 2024-07-04 13:23 | disposition home or self-care (01) ==
LOC: HO.MANLNP 13:22
PROVIDERS: Visit Provider Physician Assistant
DX: H61.23 Impacted cerumen, bilateral (principal)
CPT/HCPCS: 87070; 87205

== ENCOUNTER 2024-11-03 18:05 | Outpatient (REF) | payer MEDICARE, SELFPAY | END 2024-11-03 18:06 | disposition home or self-care (01) | LOC: HO.LNP 18:05 | PROVIDERS: Visit Provider Physician Assistant | DX: H66.92 Otitis media, unspecified, left ear (principal) | CPT/HCPCS: 87070; 87205 ==

== ENCOUNTER 2025-02-19 10:53 | Outpatient (REF) | payer MEDICARE, SELFPAY ==
--- OUTSIDE RECORDS SUMMARY | 2025-02-19 13:55 | XMS_ITS | Encounter Summary ---
Author Organization [facility] Address [address] [facility] [address] [place] [address] Phone Care Team Providers Care Mill Stenciler Name Role Phone Josette Kaden Boyd DO Primary Care Provider [phone] Kaden Finch DO Primary Care Provider [phone] Encounter Details Date Type Department Care Team (Late Contact Info) Description 02/09/2019 Ancillary Orders Virtual Department [address] [place] [address] Kaden Finch DO [address] [facility] [address] [place], [place] [id number] Breast screening Social History Tobacco Use Types Packs/Day Years Used Date Smoking Tobacco: Never Smokeless Tobacco: Never Alcohol Use Standard Drinks/Week Comments No 0 (1 standard drink = 0.6 oz pur e alcohol) Comments No Sex and Gender Information Value Date Recorded Sex Assigned at Female 10/09/2020 8:13 AM EDT Legal Sex Female 10:01 PM EDT Gender Identity Female 10/09/2020 8:13 AM EDT Sexual Orientation Straight 10/09/2020 8: 13 AM EDT Occupation Industry Job Start Date Job End Date [employer] Not on file Not on file Not on file documented as of this encounter Plan of Treatment Upcoming Encounters Date Type Department Care Team (Late Contact Info) Description 06/05/2025 8:15 AM EDT Appointment [facility], [facility] [address] [place] [address] MagalyKaden doherty Oliver, DO [address] [facility] [place] [address] [place] [address] 02/04/2026 10:00 AM EST Office Visit [facility] [address] [facility] 3rd Floor, [address] [place] [address] Sebas Jordan MD, MS [address] [facility], [address] [place] [address] [email or web address] documented as of this encounter Results * BI MAMMOGRAM SCREENING WITH TOMOSYNTHESIS WITH CAD (BILATERAL) (02/24/2019 8:15 AM EST) Anatomical Region Laterality Modality Breast Left, Breast Right, Breast Bilateral Bila teral Mammography 02/24/2019 3:20 PM EST Impressions 02/24/2019 3:24 PM EST RIGHT breast: No mammographic evidence of malignancy. LEFT breast: No mammographic evidence of malignancy. RECOMMENDED FOLLOWUP: Routine screening mammography is recommended, as clinically appropriate. The results will be sent by mail to the patient. BI-RADS CATEGORY: 2 - Benign finding. BREAST COMPOSITION: There are scattered fibroglandular densities. POS - CDHMAMA Narrative 02/24/2019 3:24 PM EST EXAM: BI MAMMOGRAM SCREENING WITH TOMOSYNTHESIS WITH CAD (BILATERAL) HISTORY: Screening. * Annual Breast screening COMPARISON: Prior mammograms, most recent 02/14/2018 and dating back to 01/13/2013. TECHNIQUE: Digital breast tomosynthesis was performed in CC and MLO projections. Reconstructed 2-D C-views generated from the tomosynthesis images. Images interpreted in conjunction with R-2 Image Dairy Specialist computer-aided detection (CAD). FINDINGS: BREAST COMPOSITION: There are scattered areas of fibroglandular density. BILATERAL BREASTS: There are no suspicious masses, suspicious areas of architectural distortion or suspicious clusters of microcalcifications. Extensive diffuse bilateral coarse, round and secretory benign type calcifications are all without change. Procedure Note Jamila Rogers MD - 02/24/2019 EXAM: BI MAMMOGRAM SCREENING WITH TOMOSYNTHESIS WITH CAD (BILATERAL) HISTORY: Screening. * Annual Breast screening COMPARISON: Prior mammograms, most recent 02/14/2018 and dating back to01/13/2013. TECHNIQUE: Digital breast tomosynthesis was performed in CC and MLOprojections. Reconstructed 2-D C-views generated from the tomosynthesisimages. Images interpreted in conjunction with R-2 Image Checkercomputer-aided detection (CAD). FINDINGS: BREAST COMPOSITION: There are scattered areas of fibroglandular density. BILATERAL BREASTS: There are no suspicious masses, suspicious areas ofarchitectural distortion or suspicious clusters of microcalcifications. Extensive diffuse bilateral coarse, round and secretory benign typecalcifications are all without change. IMPRESSION: RIGHT breast: No mammographic evidence of malignancy. LEFT breast: No mammographic evidence of malignancy. RECOMMENDED FOLLOWUP: Routine screening mammography is recommended, asclinically appropriate. The results will be sent by mail to the patient. BI-RADS CATEGORY: 2 - Benign finding. BREAST COMPOSITION: There are scattered fibroglandular densities. POS - CDHMAMA us Kaden A Bigda DO IMG MG EXAMS Final Result documented in this encounter Visit Diagnoses Diagnosis Breast screening Breast screening, unspecified Breast screening Breast screening, unspecified documented in this encounter Additional Health Concerns Infection Onset Date Last Indicated Resolved Time CoV-Risk 10/09/2020 10/09/2020 10/19/2020 1:25 AM EDT CoV-Risk Comment:Per Ambulatory Triage Form 2021 08/29/202109/09 1:23 AM EDT CoV-Risk 03/02/2022 03/02/2022 03/13/2022 1:22 AM EST Influenza 03/02/2022 03/02/2022 03/09/2022 1:33 AM EST CoV-Risk 08/02/2023 08/02/2023 08/13/2023 1:22 AM EDT CoV-Risk 06/02/2024 06/02/2024 06/13/2024 1:21 AM EDT documented as of this encounter Care Teams Mill Stenciler Relationship Specialty Start Date End Date Kaden Finch OliverDO PCP - General 01/14/17 06/01/24 Kaden Finch DO [address] [place] [address] PCP - General Internal Medicine 06/02/24 documented as of this encounter Additional Source Comments The information contained in this document represents components of the legal health record. It is not the complete legal health record.[facility]
--- OUTSIDE RECORDS SUMMARY | 2025-02-19 13:55 | XMS_ITS | Encounter Summary ---
Author Organization [facility] Address [address] [facility] [address] [place] [address] Phone Care Team Providers Care Window Trimmer Apprentice Name Role Phone Kaden Finch Primary Care Provider [phone] MagalyKaden doherty Primary Care Provider [phone] Encounter Details Date Type Department Care Team (Late st Contact Info) Description 11/05/2023 Procedure Pass [facility], [facility] Scan - [facility] [address] [place] [address] Social History Tobacco Use Types Packs/Day Years Used Date Smoking Tobacco: Never Smokeless Tobacco: Never Alcohol Use Standard Drinks/Week Comments No 0 (1 standard drink = 0.6 oz pur e alcohol) Education Answer Date Recorded Are you interested in more education? Not on sonja e 07/24/2022 Are you concerned about learning? Not on file 07/24/2022 No 07/24/2022 No 07/24/2022 Digital Access Answer Date Recorded No 08/19/2022 No 08/19/2022 Reliable internet access at home? Not on file 08/19/2022 Device with a working camera? Not on file Intimate Partner Violence Answer Date R ecorded Are you denied basic needs s uch as food, clothing, or medical care? No 08/02/2023 In the past 12 months have y ou been in a relationship with a person who hurts, threatens, or tries to control you? No 08/02/2023 Are you denied basic needs s uch as food, clothing, or medical care? No 08/02/2023 In the past 12 months have y ou been in a relationship with a person who hurts, threatens, or tries to control you? No 08/02/2023 Comments No Sex and Gender Information Value [...] Encounters Date Type Department Care Team (Late st Contact Info) Description 06/05/2025 8:15 AM EDT Appointment [facility], [address] [address] Kaden Finch DO [address] [facility] [place] [address] 02/04/2026 10:00 AM EST Office Visit [facility] [address] [place] [address] 3rd Floor, [address] [place] [address] Sebas Jordan MD, MS 22 [facility], [address] [address] documented as of this encounter Visit Diagnoses Not on filedocumented in this encounter Additional Health Concerns Infection Onset Date Last Indicated Resolved Time CoV-Risk 06/02/2024 06/02/2024 06/13/2024 1:21 AM EDT documented as of this encounter Care Teams Window Trimmer Apprentice Relationship Specialty Start Date End Date Kaden Finch DO PCP - General 01/14/17 06/01/24 Kaden Finch DO [address] [facility] [place] [address] [email or web address] PCP - General Internal Medicine 06/02/24 documented as of this encounter Additional Source Comments The information contained in this document represents components of the legal health record. It is not the complete legal health record.[facility]
--- OUTSIDE RECORDS SUMMARY | 2025-02-19 13:57 | XMS_ITS | Encounter Summary ---
Author Organization [facility] Address [address] [facility] [address] [place] [address] Phone Care Team Providers Care Speaking Unit Assembler Name Role Phone Kaden Finch DO Primary Care Provider [phone] Kaden Finch DO Primary Care Provider [phone] Encounter Details Date Type Department Care Team ([facility] st Contact Info) Description 08/18/2023 Transcribe Orders Virtual Department [address] [place] [address] Kaden Finch DO [address] [facility] [place] [address] [place] [address] [email or web address] Cough, unspecified type (Primary Dx) Social History Tobacco Use Types Packs/Day Years [...] Info) Description 06/05/2025 8:15 AM EDT Appointment [facility], Bone [facility] [address] [place] [address] Kaden Finch, [address] [facility] [place] [address] [place] [address] [email or web address] 02/04/2026 10:00 AM EST Office Visit [facility] [address] [place] [address] 3rd Floor, [address] [place] [address] Sebas Jordan MD, MS 22 [facility], [address] [address] [email or web address] documented as of this encounter Results * XR CHEST PA AND LATERAL 2 VIEWS (08/18/2023 3:23 PM EDT) Anatomical Region Laterality Modality Chest Computed Radiogr aphy 08/18/2023 8:33 PM EDT Impressions 08/18/2023 8:34 PM EDT No acute findings. Narrative 08/18/2023 8:34 PM EDT XR CHEST PA AND LATERAL 2 VIEWS Referring clinician's provided indication for this examination in Epic: Cough; cough COMPARISON: August 02, 2023 FINDINGS: Lungs: Clear lungs. Pleura: No pleural effusion. No pneumothorax Heart/Mediastinum: Mildly enlarged heart. Bones/Soft Tissues: No acute finding Procedure Note Anthony Mendoza MD, BRITTANI - 08/18/2023 XR CHEST PA AND LATERAL 2 VIEWS Referring clinician's provided indication for this examination in Epic:Cough; cough COMPARISON: August 02, 2023 FINDINGS: Lungs: Clear lungs. Pleura: No pleural effusion. No pneumothorax Heart/Mediastinum: Mildly enlarged heart. Bones/Soft Tissues: No acute finding IMPRESSION: No acute findings. us Kaden Finch DO IMG XR CHEST Final Result documented in this encounter Visit Diagnoses Diagnosis Cough, unspecified type- Primary Cough, unspecified type documented in this encounter Additional Health Concerns Infection Onset Date Last Indicated Resolved Time CoV-Risk 06/02/2024 06/02/2024 06/13/2024 1:21 AM EDT documented as of this encounter Care Teams Speaking Unit Assembler Relationship Specialty Start Date End Date Kaden Finch DO PCP - General 01/14/17 06/01/24 Kaden Finch DO [address] [place] [address] PCP - General Internal Medicine 06/02/24 documented as of this encounter Additional Source Comments The information contained in this document represents components of the legal health record. It is not the complete legal health record.[facility]
--- OUTSIDE RECORDS SUMMARY | 2025-02-19 13:57 | XMS_ITS | Encounter Summary ---
Author Organization [facility] Address [address] [place] [address] [place] [address] Phone Care Team Providers Care Service Order Clerk Name Role Phone Kaden Finch DO Primary Care Provider [phone] MagalyKaden doherty Primary Care Provider [phone] Encounter Details Date Type Department Care Team (Late Contact Info) Description 07/30/2022 Procedure Pass [place] Admitting Dept - Virtual Department [address] [place] [address] Social History Tobacco Use Types Packs/Day Years Used Date Smoking Tobacco: Never Smokeless Tobacco: Never Alcohol Use Standard Drinks/Week Comments No 0 (1 standard drink = 0.6 oz pur e alcohol) Education Answer Date Recorded Are you interested in more education? Not on sonja e 07/24/2022 Are you concerned about learning? Not on file 07/24/2022 No 07/24/2022 No 07/24/2022 Comments No Sex and Gender Information Value [...] Description 06/05/2025 8:15 AM EDT Appointment [facility], Bone Density - [address] [address] Kaden Finch DO [address] [facility] [place] [address] 02/04/2026 10:00 AM EST Office Visit [facility] [address] [facility] 3rd Floor, [address] [place] [address] Sebas Jordan MD, MS 22 [facility], [address] [place] [address] documented as of this encounter Visit Diagnoses Not on filedocumented in this encounter Additional Health Concerns Infection Onset Date Last Indicated Resolved Time CoV-Risk 08/02/2023 08/02/2023 08/13/2023 1:22 AM EDT CoV-Risk 06/02/2024 06/02/2024 06/13/2024 1:21 AM EDT documented as of this encounter Care Teams Service Order Clerk Relationship Specialty Start Date End Date Kaden Finch DO PCP - General 01/14/17 06/01/24 Kaden Finch DO [address] [facility] [place] [address] PCP - General Internal Medicine 06/02/24 documented as of this encounter Additional Source Comments The information contained in this document represents components of the legal health record. It is not the complete legal health record.[facility]
--- OUTSIDE RECORDS SUMMARY | 2025-02-19 13:57 | XMS_ITS | Encounter Summary ---
Author Organization [facility] Address [address] [facility] [address] [place] [address] Phone Care Team Providers Care Retail Planning Manager Name Role Phone Kaden Finch DO Primary Care Provider [phone] Kaden Finch DO Primary Care Provider [phone] Encounter Details Date Type Department Care Team ([facility] st Contact Info) Description 05/18/2023 Transcribe Orders Virtual Department [address] [place] [address] Kaden Finch DO [address] [facility] [place] [address] [place] [address] [email or web address] Breast screening (Primary Dx) Social History Tobacco Use Types [...] with a working camera? Not on file Comments No Sex and Gender Information Value [...] Info) Description 06/05/2025 8:15 AM EDT Appointment [facility], Bone Density - [facility] [address] [place] [address] Kaden Finch, [address] [facility] [place] [address] [place] [address] [email or web address] 02/04/2026 10:00 AM EST Office Visit [facility] [address] [facility] 3rd Floor, [address] [place] [address] Sebas Jordan MD, MS [address] [facility], [address] [place] [address] [email or web address] documented as of this encounter Results * BI MAMMOGRAM SCREENING WITH TOMOSYNTHESIS WITH CAD (BILATERAL) (07/20/2023 2:40 PM EDT) Anatomical Region Laterality Modality Breast Left, Breast Right, Breast Bilateral Bila teral Mammography 07/21/2023 11:5 4 AM EDT Impressions 07/21/2023 11:56 AM EDT No mammographic evidence of malignancy in either breast. Annual screening mammography is recommended. BI-RADS 2 BENIGN The patient will be notified of the results and recommendations. Narrative 07/21/2023 11:56 AM EDT BI MAMMOGRAM SCREENING WITH TOMOSYNTHESIS WITH CAD (BILATERAL) Additional patient information: Screening. COMPARISON: Comparison is made with relevant prior imaging. Breast composition: The breast tissue is heterogeneously dense which may obscure small masses. FINDINGS: Previous reduction mammoplasty., Bilateral postsurgical changes are stable. In addition, there are regional large rodlike and punctate calcifications present bilaterally, stable in appearance. A biopsy marker clip is noted in the 6:00/central area of the left breast. No abnormal masses, suspicious calcifications, or other significant findings are identified mammographically in either breast. There has been no significant interval change. Procedure Note Letty Moeller MD - 07/21/2023 BI MAMMOGRAM SCREENING WITH TOMOSYNTHESIS WITH CAD (BILATERAL) Additional patient information: Screening. COMPARISON: Comparison is made with relevant prior imaging. Breast composition: The breast tissue is heterogeneously dense which mayobscure small masses. FINDINGS: Previous reduction mammoplasty., Bilateral postsurgical changes arestable. In addition, there are regional large rodlike and punctatecalcifications present bilaterally, stable in appearance. A biopsy markerclip is noted in the 6:00/central area of the left breast. No abnormal masses, suspicious calcifications, or other significantfindings are identified mammographically in either breast. There has been no significant interval change. IMPRESSION: No mammographic evidence of malignancy in either breast. Annual screening mammography is recommended. BI-RADS 2 BENIGN The patient will be notified of the results and recommendations. us Kaden Finch DO IMG MG EXAMS Final Result documented in this encounter Visit Diagnoses Diagnosis Breast screening- Primary Breast screening, unspecified Breast screening Breast screening, unspecified documented in this encounter Additional Health Concerns Infection Onset Date Last Indicated Resolved Time CoV-Risk 08/02/2023 08/02/2023 08/13/2023 1:22 AM EDT CoV-Risk 06/02/2024 06/02/2024 06/13/2024 1:21 AM EDT documented as of this encounter Care Teams Retail Planning Manager Relationship Specialty Start Date End Date Kaden Finch DO PCP - General 01/14/17 06/01/24 Kaden Finch DO [address] [place] [address] PCP - General Internal Medicine 06/02/24 documented as of this encounter Additional Source Comments The information contained in this document represents components of the legal health record. It is not the complete legal health record.[facility]
--- OUTSIDE RECORDS SUMMARY | 2025-02-19 13:57 | XMS_ITS | Encounter Summary ---
Author Organization [facility] Address [address] [facility] [address] [place] [address] Phone Care Team Providers Care Creative Recruiter Name Role Phone aKden Finch DO Primary Care Provider [phone] Kaden Finch DO Primary Care Provider [phone] Encounter Details Date Type Department Care Team (Late Contact Info) Description 06/05/2022 Procedure Pass [address] [address] Social History Tobacco Use Types Packs/Day Years [...] Info) Description 06/05/2025 8:15 AM EDT Appointment [address] [address] Kaden Finch DO [address] [facility] [place] [address] 02/04/2026 10:00 AM EST Office Visit [facility] [address] [facility] [address], [address] [place] [address] Sebas Jordan MD, MS [address] [facility], [address] [place] [address] documented as of this encounter Visit Diagnoses Not on filedocumented in this encounter Additional Health Concerns Infection Onset Date Last Indicated Resolved Time CoV-Risk 08/02/2023 08/02/2023 08/13/2023 1:22 AM EDT CoV-Risk 06/02/2024 06/02/2024 06/13/2024 1:21 AM EDT documented as of this encounter Care Teams Creative Recruiter Relationship Specialty Start Date End Date Kaden Finch DO PCP - General 01/14/17 06/01/24 Kaden Finch DO [address] [facility] [place] [address] PCP - General Internal Medicine 06/02/24 documented as of this encounter Additional Source Comments The information contained in this document represents components of the legal health record. It is not the complete legal health record.[facility]
--- OUTSIDE RECORDS SUMMARY | 2025-02-19 13:57 | XMS_ITS | Encounter Summary ---
Author Organization [facility] Address [address] [facility] [address] [place] [address] Phone Care Team Providers Care Janitorial Supervisor Name Role Phone Kaden Finch DO Primary Care Provider [phone] Kaden Finch DO Primary Care Provider [phone] Encounter Details Date Type Department Care Team (Latest Contact Info) Description 01/04/2019 Transcribe Orders Virtual Department [address] [place] [address] Po Santiago MD [address] [facility], [email or web address] [address] [place] [address] [email or web address] Uncomplicated asthma, unspecified asthma severity, unspecified whether persistent (Primary Dx) Social History Tobacco Use Types [...] Info) Description 06/05/2025 8:15 AM EDT Appointment [facility] Bone Density - [facility] [address] [place] [address] Kaden Finch DO [address] [facility] [place] [address] [place] [address] [email or web address] 02/04/2026 10:00 AM EST Office Visit [facility] [address] [facility] 3rd Floor, [address] [place] [address] Sebas Jordan MD, MS [address] [facility], [address] [place] [address] [email or web address] documented as of this encounter Results * XR CHEST PA AND LATERAL 2 VIEWS (01/06/2019 12:28 PM EDT) Anatomical Region Laterality Modality Chest Radiographic Betty ging 01/06/2019 12:5 3 PM EDT Addenda Addendum by Ryan Finn MD on 01/31/2019 4:22 PM EST HISTORY: Shortness breath, asthma. COMPARISON: Chest x-rays from 01/03/2010 to 05/11/2017. FINDINGS: PA and lateral views of the chest obtained. No evidence of focal infiltrates, pulmonary edema or pleural effusions. No pneumothorax. Great vessel and cardiomediastinal contours are stable. IMPRESSION: No evidence of acute >>> CARDIOPULMONARY <<< disease. POS - [id number] Edited by: Danna Razo on 01/25/2019 4:43 PM Impressions 01/06/2019 12:57 PM EDT No evidence of acute cardiomegaly disease. POS - [id number] Narrative 01/06/2019 12:57 PM EDT HISTORY: Shortness breath, asthma. COMPARISON: Chest x-rays from 01/03/2010 to 05/11/2017. FINDINGS: PA and lateral views of the chest obtained. No evidence of focal infiltrates, pulmonary edema or pleural effusions. No pneumothorax. Great vessel and cardiomediastinal contours are stable. Procedure Note Ryan Finn MD - 01/06/2019 HISTORY: Shortness breath, asthma. COMPARISON: Chest x-rays from 01/03/2010 to 05/11/2017. FINDINGS: PA and lateral views of the chest obtained. No evidence of focal infiltrates, pulmonary edema or pleural effusions.No pneumothorax. Great vessel and cardiomediastinal contours arestable. IMPRESSION: No evidence of acute cardiomegaly disease. POS - [id number] us Po Santiago MD IMG XR CHEST Edited Result - Final documented in this encounter Visit Diagnoses Diagnosis Uncomplicated asthma, unspecified asthma severity, unspecified whether persistent- Primary Uncomplicated asthma, unspecified asthma severity, unspecified whether persistent documented in this encounter Additional Health Concerns [...] documented as of this encounter Care Teams Janitorial Supervisor Relationship Specialty Start Date End Date Kaden Finch DO [email or web address] PCP - General 01/14/17 06/01/24 Kaden Finch DO [address] [place] [address] [email or web address] PCP - General Internal Medicine 06/02/24 documented as of this encounter Additional Source Comments The information contained in this document represents components of the legal health record. It is not the complete legal health record.[facility]
--- OUTSIDE RECORDS SUMMARY | 2025-02-19 13:57 | XMS_ITS | Encounter Summary ---
Author Organization [facility] Address [address] [facility] [address] [place] [address] Phone Care Team Providers Care Property Custodian Name Role Phone MagalyKaden doherty Oliver DELEON Primary Care Provider [phone] Josette Kaden Boyd DO Primary Care Provider [phone] Reason for Referral * MRI/CAT Scan - Closed Specialty Diagnoses / Procedures Referred By Charlotte hodge Referred To Contact Radiology Diagnoses Syncope and collapse Procedures CT Head CHG CT SCAN HEAD CONTRAST CHG CT SCAN HEAD COMBO Priti Camilo PA [address] [facility] [place] [address] Phone: tel: fax: Referral ID Status Reason Start Date Expiration Date Visits Re quested Visits Authorized [id number] Closed 11/02/2023 12/31/2023 1 1 Encounter Details Date Type Department Care Team (Latest Contact Info) Description 11/05/2023 Transcribe Orders Virtual Department [address] [place] [address] Priti Camilo PA [address] [facility] [place] [address] Syncope and collapse (Primary Dx) Social History Tobacco Use Types [...] Info) Description 06/05/2025 8:15 AM EDT Appointment [facility], Bone Density - [facility] [address] [place] [address] Kaden Finch DO [address] [facility] [address] 02/04/2026 10:00 AM EST Office Visit [facility] [address] [facility] 3rd Floor, [address] [place] [address] Sebas Jordan MD, MS 22 [facility], [address] [place] [address] [email or web address] documented as of this encounter Results * CT HEAD WITHOUT CONTRAST (11/18/2023 4:30 PM EDT) Anatomical Region Laterality Modality Head Computed Tomogra phy 11/23/2023 2:39 PM EDT Impressions 11/23/2023 2:43 PM EDT No evidence of intracranial mass, hemorrhage, acute territorial infarction, or hydrocephalus. Narrative 11/23/2023 2:[address] HEAD WITHOUT CONTRAST Referring clinician's provided indication for this examination in [facility]: Outside Radiology Order; syncope TECHNIQUE: Multidetector-row CT of the head was performed without intravenous contrast using tailored dose modulation techniques. Images were reconstructed in the axial, coronal, and sagittal planes. COMPARISON: CT SINUS C- FINDINGS: Sylvain Parenchyma: No midline shift, mass effect, parenchymal hemorrhage, or evidence of acute territorial infarct. Mild nonspecific periventricular and subcortical white matter hypodensities are seen, which can be seen in the setting of chronic small vessel disease. Ventricular System and Extra-Axial Spaces: No extra-axial fluid collections. Basilar cisterns are patent. No hydrocephalus. Vascular calcifications are seen in the carotid siphons bilaterally. Extracranial Structures: Trace scattered mucosal thickening is seen throughout the paranasal sinuses. The middle ear cavities and the mastoid air cells are clear. No orbital abnormality. No calvarial lesion is identified. Procedure Note lAan Dougherty MD - 11/23/2023 CT HEAD WITHOUT CONTRAST Referring clinician's provided indication for this examination in Epic:Outside Radiology Order; syncope TECHNIQUE: Multidetector-row CT of the head was performed withoutintravenous contrast using tailored dose modulation techniques. Imageswere reconstructed in the axial, coronal, and sagittal planes. COMPARISON: CT SINUS C FINDINGS: Sylvain Parenchyma: No midline shift, mass effect, parenchymal hemorrhage,or evidence of acute territorial infarct. Mild nonspecific periventricular and subcortical white matterhypodensities are seen, which can be seen in the setting of chronic smallvessel disease. Ventricular System and Extra-Axial Spaces: No extra-axial fluidcollections. Basilar cisterns are patent. No hydrocephalus. Vascularcalcifications are seen in the carotid siphons bilaterally. Extracranial Structures: Trace scattered mucosal thickening is seenthroughout the paranasal sinuses. The middle ear cavities and the mastoidair cells are clear. No orbital abnormality. No calvarial lesion isidentified. IMPRESSION: No evidence of intracranial mass, hemorrhage, acute territorialinfarction, or hydrocephalus. Priti GILLILAND IMG CT HEAD/NECK Final Resu lt documented in this encounter Visit Diagnoses Diagnosis Syncope and collapse- Primary Syncope and collapse documented in this encounter Additional Health Concerns Infection Onset Date Last Indicated Resolved Time CoV-Risk 06/02/2024 06/02/2024 06/13/2024 1:21 AM EDT documented as of this encounter Care Teams Property Custodian Relationship Specialty Start Date End Date Kaden Finch DO PCP - General 01/14/17 06/01/24 Kaden Finch DO [address] [place] [address] PCP - General Internal Medicine 06/02/24 documented as of this encounter Additional Source Comments The information contained in this document represents components of the legal health record. It is not the complete legal health record.[facility]
--- OUTSIDE RECORDS SUMMARY | 2025-02-19 13:57 | XMS_ITS | Encounter Summary ---
Author Organization [facility] Address [address] [place] [address] Phone Care Team Providers Care Manager Generation Name Role Phone Kaden Finch Primary Care Provider MagalyKaden doherty Primary Care Provider [phone] Encounter Details Date Type Department Care Team (Late st Contact Info) Description 05/18/2023 Procedure Pass [facility], [facility] [address] [place] [address] Social History Tobacco Use Types Packs/Day Years [...] Info) Description 06/05/2025 8:15 AM EDT Appointment [facility], Bone Density [facility] [address] [place] [address] Kaden Finch DO [address] [place] [address] 02/04/2026 10:00 AM EST Office Visit [facility] [address] [facility] 3rd Floor, [address] [place] [address] Sebas Jordan MD, MS 22 [facility], [address] [place] [address] documented as of this encounter Visit Diagnoses Not on filedocumented in this encounter Additional Health Concerns Infection Onset Date Last Indicated Resolved Time CoV-Risk 08/02/2023 08/02/2023 08/13/2023 1:22 AM EDT CoV-Risk 06/02/2024 06/02/2024 06/13/2024 1:21 AM EDT documented as of this encounter Care Teams Manager Generation Relationship Specialty Start Date End Date MagalyKaden dohertyDO PCP - General 01/14/17 06/01/24 Kaden Finch DO [address] [place] [address] PCP - General Internal Medicine 06/02/24 documented as of this encounter Additional Source Comments The information contained in this document represents components of the legal health record. It is not the complete legal health record.[facility]
--- OUTSIDE RECORDS SUMMARY | 2025-02-19 13:58 | XMS_ITS | Encounter Summary ---
Author Organization [facility] Address [address] [facility] [address] [place] [address] Phone Care Team Providers Care Publicity Director Name Role Phone Josette Kaden Boyd DO Primary Care Provider [phone] Kaden Finch DO Primary Care Provider [phone] Encounter Details Date Type Department Care Team (Late Contact Info) Description 06/10/2018 Ancillary Orders Virtual Department [address] [place] [address] Kaden Finch DO [address] [facility] [place] [address] Screening for osteoporosis; Osteopenia, unspecified location Social History Tobacco Use Types Packs/Day Years [...] Info) Description 06/05/2025 8:15 AM EDT Appointment [facility], [facility] [address] [place] [address] MagalychasKaden, [address] [facility] [place] [address] [place] [address] 02/04/2026 10:00 AM EST Office Visit [facility] [address] [facility] 3rd Floor, [address] [place] [address] Sebas Jordan MD, MS 22 [facility], [address] [place] [address] [email or web address] documented as of this encounter Results * BD DXA AXIAL (SPINE) WITH HIP (06/14/2018 2:55 PM EDT) Anatomical Region Laterality Modality Bone Density Bone Density 06/14/2018 3:38 PM EDT Impressions 06/14/2018 3:40 PM EDT Continued normal bone mineral density at all 3 sites assessed. S/S: Estrogen deficiency, bone density screening POS - [id number] Narrative 06/14/2018 3:40 PM EDT This is a 67-year-old postmenopausal patient. Evaluation of the lumbar spine and both hips is obtained and appears appropriate. The lumbar spine from L1 through L4 discloses a total bone mineral density of 1.105 g/cm2 with a T-score of 0.5. This is in the normal range. The change in bone mineral density since 06/25/2004 is -3.5% and is significant. The right hip has a total bone mineral density of 1.236 g/cm2 with a T-score of 2.4 normal this is in the range. The change in bone mineral density since 06/25/2004 is 4.1% and is significant. The left hip has a total bone mineral density of 1.220 g/cm2 for a T-score of 2.3. This is in the normal range. The change in bone mineral density since 06/25/2004 is 3.8% and is significant. Procedure Note Jim Perea MD - 06/14/2018 This is a 67-year-old postmenopausal patient. Evaluation of the lumbar spine and both hips is obtained and appearsappropriate. The lumbar spine from L1 through L4 discloses a total bone mineral densityof 1.105 g/cm2 with a T-score of 0.5. This is in the normal range. Thechange in bone mineral density since 06/25/2004 is -3.5% and issignificant. The right hip has a total bone mineral density of 1.236 g/cm2 with aT-score of 2.4 normal this is in the range. The change in bonemineral density since 06/25/2004 is 4.1% and is significant. The left hip has a total bone mineral density of 1.220 g/cm2 for a T-scoreof 2.3. This is in the normal range. The change in bone mineral densitysince 06/25/2004 is 3.8% and is significant. IMPRESSION: Continued normal bone mineral density at all 3 sites assessed. S/S: Estrogen deficiency, bone density screening POS - [id number] us Kaden A Bigda DO IMG BD BONE DENSITY DEXA Final R esult documented in this encounter Visit Diagnoses Diagnosis Screening for osteoporosis Special screening for osteoporosis Osteopenia, unspecified location Screening for osteoporosis Special screening for osteoporosis Osteopenia, unspecified location documented in this encounter Additional Health Concerns [...] documented as of this encounter Care Teams Publicity Director Relationship Specialty Start Date End Date BigdaKadenDO PCP - General 01/14/17 06/01/24 Josette Kaden BoydDO [address] [place] [address] PCP - General Internal Medicine 06/02/24 documented as of this encounter Additional Source Comments The information contained in this document represents components of the legal health record. It is not the complete legal health record.[facility]
--- OUTSIDE RECORDS SUMMARY | 2025-02-19 13:58 | XMS_ITS | Clinical Summary ---
Author Organization [facility] Address [address] [facility] [address] [place] [phone] Phone Care Team Providers Care Surfacing Machine Operator Name Role Phone Jonatan Lacy Primary Care Provider Allergies Active Allergy Reactions Criticality Noted Date Comments Amoxicillin 11/22/2020 Codeine 07/17/2022 Losartan Dizziness 11/22/2020 Penicillins Rash Low 01/26/2017 Pollen Extracts Cough Medium 01/16/2020 Tetanus And Diphtheria Toxoids Angioedema Medium 03/03 Medications lisinopril (PRINIVIL,ZEST RIL) 5 MG tablet Take 10 mg by mouth daily. Active zafirlukast (ACCOLATE) 10 MG tablet Take 20 mg by mouth 2 (two) times a day. Acti ve cholestyramine (QUESTRAN) 4 gram powder Take by mouth daily. Active glipiZIDE (GLUCOTROL) 10 MG tablet Take 10 mg by mouth daily. Active pantoprazole (PROTONIX) 40 MG tabletIndicati ons:gastroesop hageal reflux disease Take 40 mg by mouth daily. Indications: gastroesophageal reflux disease Active beclomethasone (QVAR) 80 mcg/actuation inhaler Inhale 2 puffs into the lungs 2 (two) times a day. 1 Inhaler 06/19/19 Active Additional Information Patient not taking.Reported on 01/30/2025 albuterol 2.5 mg/0.5 mL nebulizer solution Take 0.5 mL (2.5 mg total) by nebulization 4 (four) times a day as needed for wheezing. 20 mL 12/05/20 22 Active predniSONE (DELTASONE) 10 MG tablet Take 1 tablet by mouth every morning. 12/04/19 23 Active clotrimazole-b etamethasone (LOTRISONE) cream APPLY TOPICALLY TO AFFECTED AND SURROUNDING AREA TWICE A DAY ( MORNING & EVENING) FOR 14 DAYS 03/02/20 23 Active celecoxib (CELEBREX) 200 MG capsuleIndicat ions:polymyosi tis Take 200 mg by mouth 2 (two) times a day. Indications: polymyositis Active albuterol 90 mcg/actuation inhaler Inhale 2 puffs into the lungs as needed. Every 4 hours prn 18 g 11 04/22/19 24 Active dextromethorph an-guaiFENesin (ROBITUSSIN-DM ) 10-100 mg/5 mL liquid Take 5 mL by mouth every 4 (four) hours as needed (cough). 236 mL 08/02/19 24 Active Additional Information Patient not taking.Reported on 01/30/2025 ONETOUCH ULTRA TEST Strp strips TEST SUGAR THREE TIMES A DAY DIRECTED 11/27/19 24 Active brinzolamide (AZOPT) 1 % ophthalmic suspension 1 drop 2 (two) times a day. Active latanoprost (XALATAN) 0.005 % ophthalmic solution 01/17/20 24 Active glimepiride (AMARYL) 4 MG tablet 01/25/20 24 Active traZODone (DESYREL) 50 MG tablet 01/25/20 24 Active carbamide peroxide (DEBROX) 6.5 % otic solution 5 drops by Each Ear route 2 (two) times a day. 15 mL 06/03/19 25 Active Additional Information Patient not taking.Reported on 01/30/2025 ISAK TRIPLETT U-100 INSULIN 100 unit/mL (3 mL) InPn injection pen INJECT 20 UNITS EVERY DAY BY SUBCUTANEOUS ROUTE AT BEDTIME FOR 30 DAYS. Active Active Problems Problem Noted Date Diagnosed Date Class 2 severe obesity due t o excess calories with serious comorbidity and body mass index (BMI) of 35.0 to 35.9 in adult 04/13/2018 Type 2 diabetes mellitus 01/26/2017 Sprain of medial collateral ligament of right kn ee 01/26/2017 Costochondritis 01/26/2017 Encounters Date Type Department Care Team Description 01/30/2025 11:15 AM EST Office Visit [facility] [address] 3rd Floor, [address] [place] [address] Po Santiago MD Mild intermittent asthma without complication (Primary Dx) 11/22/2024 Transcribe Orders Virtual Department [address] [place] [address] Jonatan Lacy, Encounter for screening for osteoporosis (Primary Dx) 11/21/2024 7:35 AM EDT - 11/21/2024 11:59 PM EDT Hospital Encounter [facility] [address] [place] [address] Jonatan Lacy, DO Discharge Disposition: Home or Self Care from Last 3 Months Immunizations Immunization Administration Dates Next Due COVID-19 (Pre-01/18) Pfizer Vaccine, mRNA, PF 06/19/2020 [id number] FORMULATION 04/30/2009 INFLUENZA, SPLIT VIRUS, TRIVALENT PF 12/29/2014 Influenza High-Dose Quadriva lent Preservative Free IM 12/22/2019 Influenza High-Dose Trivalen t Preservative Free IM 12/23/2018,01/07/2017,01/09/2016 Influenza Quadrivalent w/ Preservative IM 2017 Family History Medical History Relation Comments Diabetes Brother Hypertension Brother Diabetes Mother Hypertension Mother Cancer Sister Relation Status Comments Brother Mother Sister Social History Tobacco Use Types Packs/Day Years Used Date Smoking Tobacco: Never Smokeless Tobacco: Never Tobacco Cessation:Counseling Given: Not Answered Alcohol Use Standard Drinks/Week Comments No 0 [...] as food, clothing, or medical care? No 06/02/2024 In the past 12 months have y ou been in a relationship with a person who hurts, threatens, or tries to control you? No 06/02/2024 Are you denied basic needs s uch as food, clothing, or medical care? No 06/02/2024 In the past 12 months have y ou been in a relationship with a person who hurts, threatens, or tries to control you? 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 file Not on file Not on file Last Filed Vital Signs Vital Sign Reading Time Taken Comments Blood Pressure 104/60 01/30/2025 11:55 AM EST Pulse 112 01/30/2025 11:55 AM EST Temperature 36.9 C (98.5 F) 06/02/2024 1:11 PM EST Respiratory Rate 18 06/02/2024 1:11 PM EST Oxygen Saturation 99% 01/30/2025 11:55 AM EST Inhaled Oxygen Concentration - - Weight 82.1 kg (181 lb) 01/30/2025 11:55 AM EST Height 157.5 cm (5' 2 ) 01/30/2025 11:55 AM EST Body Mass Index 33.11 01/30/2025 11:55 AM EST Plan of Treatment Upcoming Encounters Date Type Department Care Team (Late st Contact Info) Description 06/05/2025 8:15 AM EDT Appointment [facility], Bone Density - [facility] [address] [place] [address] Jonatan Lacy, [address] [facility] [place] [address] [place] [address] [email or web address] 02/04/2026 10:00 AM EST Office Visit [facility] [address] [facility] 3rd Floor, [address] [place] [address] Sebas Jordan MD, MS [address] [facility], [address] [place] [address] [email or web address] Health Maintenance Due Date Last Done Comments DEPRESSION SCREENING 1962 HEPATITIS C SCREENING 1968 PNEUMOCOCCAL VACCINES (50+ years) (1 of 2 - PCV) 1969 COLOGUARD 08/30/1995 FIT TEST 08/30/1995 FOBT 08/30/1995 SIGMOIDOSCOPY 08/30/1995 VIRTUAL COLONOSCOPY 08/30/1995 RSV VACCINE (1 - Risk 50-74 years 1-dose series) 2000 DIABETIC EYE EXAM 01/26/2017 LIPID PANEL 03/10/2022 03/10/2021, 04/0 11/2020, 09/12/2018, Additional history exists CREATININE LEVEL 08/01/2024 08/02/2023, 07/2021, 03/10/2021, Additional history exists POTASSIUM LEVEL 08/01/2024 08/02/2023, 12/0 07/2021, 03/10/2021, Additional history exists INFLUENZA VACCINE (#1) 2024 , 02/03/2022, 12/16/2020, Additional history exists COVID-19 VACCINE ( season) 2024 02/03/2021, 07/12/2020, 06/19/2020 HEMOGLOBIN A1C 02/21/2025 11/21/2024, 08/28, 06/15/2024, Additional history exists BLOOD PRESSURE 07/30/2025 01/30/2025 MAMMOGRAM 07/20/2026 07/20/2024, 06/28, 02/24/2019, Additional history exists COLONOSCOPY 01/16/2030 01/17/2020 COLORECTAL CANCER SCREENING 01/16/2030 OSTEOPOROSIS SCREENING INITIAL (ONE-TIME) Completed 06/14/2018 ZOSTER VACCINES Completed 10/17/2021, 07/15/2021 SMOKING STATUS SCREENING (Once After 26 Yrs) Completed 01/30/2025 HEPATITIS A VACCINES Aged Out No long er eligible based on patient's age to complete this topic HIB VACCINES Aged Out No longer eligi ble based on patient's age to complete this topic MENINGOCOCCAL VACCINES (ACWY) Aged Out No longer eligible based on patient's age to complete this topic MENINGOCOCCAL VACCINES (B) Aged Out N o longer eligible based on patient's age to complete this topic Medical Devices Implanted Type Area Hydrocrane Operator Device Identifier Shelf Expiration Date Model / Serial / Lot Evans Suture 4.5mm Arthroscopy Reelx Stt Peek Ss Core Knotless Shapr Tip Expandable Bx/5ea - [id number] Implanted:Qty: 3 on 07/30/2022 by Jj Landa DO at [facility] Left: Acromial Process DANIELLE ENDOSCOPY 05/25/2024 [id number] / / [id number] Evans Suture 4.75mm Healicoil Regensorb With 2 #2 Ultrabraid - [id number] Implanted:Qty: 1 on 07/30/2022 by Jj Landa DO at [facility] Left: Acromial Process WHYTE 03/09/2025 [id number] / / [id number] Evans Suture 4.75mm Healicoil Regensorb With 2 #2 Ultrabraid - [id number] Implanted:Qty: 1 on 07/30/2022 by Jj Landa DO at [facility] Left: Acromial Process WHYTE 01/02/2025 [id number] / / [id number] Procedures Procedure Name Priority Date/Time Associated Diagnosis Comments HEMOGLOBIN A1C Routine 11/21/2024 8:47 AM EDT Inadequately controlled diabetes mellitus BI MAMMOGRAM SCREENING WITH TOMOSYNTHESIS WITH CAD (BILATERAL) Routine 07/20/2024 3:39 PM EDT Breast screening BASIC METABOLIC PANEL (BMP) STAT 08/02/2023 3:42 PM EDT LIPID PANEL Routine 03/10/2021 8:24 AM EST Type 2 diabetes mellitus without complication, unspecified whether mcc insulin use ENDOSCOPY, COLON 01/17/2020 8:20 AM EDT BD DXA AXIAL (SPINE) WITH HIP Routine 06/14/2018 2:55 PM EDT Screening for osteoporosis Osteopenia, unspecified location from Last 3 Months or Most Recently Relevant to Health Maintenance Results * (ABNORMAL) Hemoglobin A1c (11/21/2024 8:47 AM EDT) HEMOGLOBIN A1C 9.8(H) 4.3 - 5.8 % [facility] Blood 11/21/2024 8:47 AM EDT 11/21/2024 8:50 AM EDT us Jonatan A Bigda DO LAB BLOOD BKR ORDERABLES Final R esult [facility] [address] [place] [address] * BI MAMMOGRAM SCREENING WITH TOMOSYNTHESIS WITH CAD (BILATERAL) (07/20/2024 3:39 PM EDT) Anatomical Region Laterality Modality Breast Left, Breast Right, Breast Bilateral Bila teral Mammography 07/21/2024 4:05 PM EDT Impressions 07/21/2024 4:11 PM EDT No mammographic evidence of malignancy in either breast. Annual screening mammography is recommended. BI-RADS 2 BENIGN The patient will be notified of the results and recommendations. Narrative 07/21/2024 4:11 PM EDT BI MAMMOGRAM SCREENING WITH TOMOSYNTHESIS WITH CAD (BILATERAL) Additional patient information: Screening. COMPARISON: Comparison is made with relevant prior imaging. Breast composition: The breasts are heterogeneously dense, which may obscure small masses. FINDINGS: Previous reduction mammoplasty. Previous needle biopsy in the left breast. No abnormal masses, suspicious calcifications, or other significant findings are identified mammographically in either breast. Procedure Note Santana Tiwari MD - 07/21/2024 BI MAMMOGRAM SCREENING WITH TOMOSYNTHESIS WITH CAD (BILATERAL) Additional patient information: Screening. COMPARISON: Comparison is made with relevant prior imaging. Breast composition: The breasts are heterogeneously dense, which mayobscure small masses. FINDINGS: Previous reduction mammoplasty. Previous needle biopsy in the leftbreast. No abnormal masses, suspicious calcifications, or other significantfindings are identified mammographically in either breast. IMPRESSION: No mammographic evidence of malignancy in either breast. Annual screening mammography is recommended. BI-RADS 2 BENIGN The patient will be notified of the results and recommendations. us Jonatan A Bigda DO IMG MG EXAMS Final Result * (ABNORMAL) Basic metabolic panel (08/02/2023 3:42 PM EDT) SODIUM 136 133 - 146 mmol/L [facility] CHLORIDE 106 96 - 108 mmol/L [facility] POTASSIUM 4.9 3.3 - 5.1 mmol/L [facility] CO2 18(L) 21 - 35 mmol/L [facility] BUN 16 6 - 19 mg/dL [facility] CREATININE 0.90 0.5 - 1.5 mg/dL [facility] GLUCOSE 248(H) 70 - 99 mg/dL [facility] CALCIUM 8.7 8.4 - 10.3 mg/dL [facility] EGFR 68 >59 mL/min/1.7 3m2 [facility] Comment:Estimated glomerular filtration rate calculated using the CKD-EPI refit equation. ANION GAP 17 10 - 20 mmol/L [facility] Blood 08/02/2023 3:42 PM EDT 08/02/2023 3:51 PM EDT Mingo Christianson MD LAB BLOOD BKR ORD ERABLES Final Result [facility] [address] [place] [address] * (ABNORMAL) Lipid panel (03/10/2021 8:24 AM EST) HDL 38 mg/dL [facility] Comment: Interpretation <40 mg/dL: Low HDL cholesterol (major risk factor for CHD) Greater than or equal to 60 mg/dL: High HDL cholesterol ( negative risk factor for CHD) HDL - cholesterol is affected by a number of factors, e.g. smoking, excerise, hormones, sex and age. CHOLESTEROL 171 0 - 240 mg/dL [facility] TRIGLYCERIDES 210(H) 30 - 160 mg/dL [facility] LDL 91 50 - 129 mg/dL [facility] Comment: LDL levels in terms of risk for coronary heart disease: <100 mg/dL: Optimal 100-129 mg/dL: Near or above optimal 130-159 mg/dL: Borderline high 160-189 mg/dL: High >190 mg/dL: Very High CARDIAC RISK RATIO 4.5(H) 3.3 - 4.4 C [facility] Blood 03/10/2021 8:24 AM EST 03/10/2021 12:30 PM EST us Jonatan Lacy DO LAB BLOOD BKR ORDERABLES Final R esult [facility] [address] [place] [address] * ENDOSCOPY, COLON (01/17/2020 8:20 AM EDT) Narrative Transcriptions Ryan Horne MD - 01/17/2020 8:20 AM EDT Patient Name: Hina Nowak Attending MD:: RYAN HORNE MD Procedure Date: 01/17/2020 8:20 AM Date of : 1950 Age: 69 Admit Type: Outpatient Gender: Female Room: [place] [address] Referring MD: JONATAN LACY DO Exam Type: Colonoscopy Indications: Screening for colorectal malignant neoplasm, Last colonoscopy: 2009 Medications: Monitored Anesthesia Care Procedure: Informed consent was obtained from the patient after discussion of the indications, limitations, alternatives, benefits, and risks of the procedure. Risks specifically discussed include but are not limited to medication reactions, missed lesions, bleeding, perforation, or the need for emergentsurgery. Throughout the procedure, the patient's bloodpressure, pulse, end-tidal CO2, and oxygen saturations were monitored continuously. The Olympus adult variable colonoscope [id number] #1was introduced through the anus and advanced to the terminal ileum. The colonoscopy was performedwithout difficulty. The patient tolerated the procedurewell. The quality of the bowel preparation was good. Complications: No immediate complications. Estimated blood loss:None. Findings: The perianal and digital rectal examinations were normal. The rectum, recto-sigmoid colon, sigmoid colon, descending colon, splenic flexure, transverse colon, hepatic flexure, ascending colon, cecum, appendiceal orifice, ileocecal valve, ileum, rectum (on retroflexion) and ascending colon (on retroflexion) appeared normal. Impression: - The rectum, recto-sigmoid colon, sigmoid colon, descending colon, splenic flexure, transverse colon, hepatic flexure, ascending colon, cecum, appendiceal orifice, ileocecal valve and terminal ileum arenormal. - No specimens collected. Recommendation: - Discharge patient to home. - Resume previous diet. - Continue present medications. - Repeat colonoscopy in 10 years for screeningpurposes. RYAN HORNE MD 01/17/2020 8:42:07 AM This report has been signed electronically. Number of Addenda: 0 Note Initiated On: 01/17/2020 7:10 AM Procedure Code(s): --- Professional --- 75431, Colonoscopy, flexible; diagnostic, including collection of specimen(s) by brushing or washing, when performed (separateprocedure) --- Technical --- 04735, Colonoscopy, flexible; diagnostic, including collection of specimen(s) by brushing or washing, when performed (separateprocedure) Diagnosis Code(s): --- Professional --- Z12.11, Encounter for screening for malignantneoplasm of colon --- Technical --- Z12.11, Encounter for screening for malignantneoplasm of colon CPT copyright 2018 [employer]. All rights reserved. The codes documented in this report are preliminary and upon technical support 1 software engineer reviewmay be revised to meet current compliance requirements. Procedure Date: 01/17/2020 8:20:00 AM [address] [place] [address] us Jonatan A Bigda DO GI PROCEDURE ORDERABLES Final Re sult * BD DXA AXIAL (SPINE) WITH HIP [...] bone density screening POS - [id number] us Jonatan Lacy DO IMG BD BONE DENSITY DEXA Final R esult from Last 3 Months or Most Recently Relevant to Health Maintenance Insurance MEDICARE PPO BLUE REPLACEMENT MEDICARE PPO BLUE REPLAC[place] BLUE REPLACEMENT Care Teams Surfacing Machine Operator Relationship Specialty Start Date End Date Jonatan Lacy DO [address] [place] [id number] [email or web address] PCP - General Internal Medicine 06/02/24 Additional Source Comments The information contained in this document represents components of the legal health record. It is not the complete legal health record.[facility]
--- OUTSIDE RECORDS SUMMARY | 2025-02-19 13:58 | XMS_ITS | Encounter Summary ---
Author Organization [facility] Address [address] [facility] [address] [place] [address] Phone Care Team Providers Care Barber Shop Manager Name Role Phone Kaden Finch DO Primary Care Provider Kaden Finch DO Primary Care Provider [phone] Encounter Details Date Type Department Care Team (Late st Contact Info) Description 07/01/2023 Transcribe Orders Virtual Department [address] [place] [address] Kaden Finch DO [address] [facility] [place] [address] Low back pain, unspecified back pain laterality, unspecified chronicity, unspecified whether sciatica present (Primary Dx) Social History Tobacco Use Types [...] Info) Description 06/05/2025 8:15 AM EDT Appointment [facility], Bone Density [facility] [address] [place] [address] Kaden Finch DO [address] [facility] [address] 02/04/2026 10:00 AM EST Office Visit [facility] [address] [place] [address] 3rd Floor, [address] [address] Sebas Jordan MD, MS [address] [facility], [address] [address] [email or web address] documented as of this encounter Visit Diagnoses Diagnosis Low back pain, unspecified back pain laterality, unspecified chronicity, unspecified whether sciatica present- Primary documented in this encounter Additional Health Concerns Infection Onset Date Last Indicated Resolved Time CoV-Risk 08/02/2023 08/02/2023 08/13/2023 1:22 AM EDT CoV-Risk 06/02/2024 06/02/2024 06/13/2024 1:21 AM EDT documented as of this encounter Care Teams Barber Shop Manager Relationship Specialty Start Date End Date Kaden Finch DO PCP - General 01/14/17 06/01/24 Kaden Finch DO [address] [place] [address] PCP - General Internal Medicine 06/02/24 documented as of this encounter Additional Source Comments The information contained in this document represents components of the legal health record. It is not the complete legal health record.[facility]
--- OUTSIDE RECORDS SUMMARY | 2025-02-19 13:58 | XMS_ITS | Encounter Summary ---
Author Organization [facility] Address [address] [facility] [address] [place] [phone] Phone Care Team Providers Care Android Platform Developer Name Role Phone Kaden Finch DO Primary Care Provider [phone] Kaden Finch DO Primary Care Provider [phone] Encounter Details Date Type Department Care Team (Late Contact Info) Description 01/24/2018 Ancillary Orders Virtual Department [address] [place] [address] Kaden Finch DO [address] [facility] [address] [place], [place] [id number] Screening for osteoporosis Social History Tobacco Use Types Packs/Day Years [...] Info) Description 06/05/2025 8:15 AM EDT Appointment [facility], [facility] [address] [place] [address] Kaden Finch DO [address] [facility] [place] [address] [email or web address] 02/04/2026 10:00 AM EST Office Visit [facility] [address] [facility] 3rd Floor, [address] [place] [address] Sebas Jordan MD, MS 22 [facility], [address] [address] [email or web address] documented as of this encounter Visit Diagnoses Diagnosis Screening for osteoporosis Special screening for osteoporosis documented in this encounter Additional Health Concerns [...] documented as of this encounter Care Teams Android Platform Developer Relationship Specialty Start Date End Date Kaden Finch DO [email or web address] PCP - General 01/14/17 06/01/24 Kaden Finch DO [address] [facility] [place] [address] [email or web address] PCP - General Internal Medicine 06/02/24 documented as of this encounter Additional Source Comments The information contained in this document represents components of the legal health record. It is not the complete legal health record.[facility]
--- OUTSIDE RECORDS SUMMARY | 2025-02-19 13:58 | XMS_ITS | Encounter Summary ---
Author Organization [facility] Address [address] [facility] [address] [place] [address] Phone Care Team Providers Care Crystal Machining Coordinator Name Role Phone Kaden Finch DO Primary Care Provider [phone] Kaden Finch Primary Care Provider [phone] Encounter Details Date Type Department Care Team (Late Contact Info) Description 07/20/2017 Transcribe Orders [facility] [address] [place] [address] Po Santiago MD [address] [facility], [address] [place] [address] [email or web address] Social History Tobacco Use Types Packs/Day Years [...] Info) Description 06/05/2025 8:15 AM EDT Appointment [facility], Bone Density - Main [address] [address] Kaden Finch DO [address] [facility] [place] [address] 02/04/2026 10:00 AM EST Office Visit [facility] [address] [facility] 3rd Floor, [address] [place] [address] Sebas Jordan MD, MS [address] [facility], [address] [place] [address] [email or web address] documented as of this encounter Visit Diagnoses [...] documented as of this encounter Care Teams Crystal Machining Coordinator Relationship Specialty Start Date End Date Kaden Finch DO PCP - General 01/14/17 06/01/24 Kaden Finch DO [address] [facility] [place] [address] PCP - General Internal Medicine 06/02/24 documented as of this encounter Additional Source Comments The information contained in this document represents components of the legal health record. It is not the complete legal health record.[facility]
--- OUTSIDE RECORDS SUMMARY | 2025-02-19 13:58 | XMS_ITS | Encounter Summary ---
Author Organization [facility] Address [address] [facility] [address] [place] [address] Phone Care Team Providers Care Psychiatric Technician Assistant Name Role Phone Kaden Finch DO Primary Care Provider [phone] Kaden Finch Primary Care Provider [phone] Encounter Details Date Type Department Care Team (Latest Contact Info) Description 05/15/2022 Transcribe Orders Virtual Department [address] [place] [address] Priti Camilo PA 6 [facility] [address] [place] [address] Left arm pain (Primary Dx) Social History Tobacco Use Types [...] Info) Description 06/05/2025 8:15 AM EDT Appointment [facility], [facility] [address] [place] [address] MagalychasKaden, DO [address] [facility] [place] [address] [place] [address] [email or web address] 02/04/2026 10:00 AM EST Office Visit [facility] 22 [facility] 3rd Floor, [address] [place] [address] Sebas Jordan MD, MS 22 [facility], [address] [place] [address] [email or web address] documented as of this encounter Results * XR SHOULDER 2 VIEWS (LEFT) (05/18/2022 8:59 AM EST) Anatomical Region Laterality Modality Shoulder Left Computed Radiogr aphy 05/18/2022 3:50 PM EST Impressions 05/18/2022 3:52 PM EST Degenerative changes. No acute osseous abnormality Narrative 05/18/2022 3:52 PM EST XR HUMERUS (LEFT), XR SHOULDER 2 OR MORE VIEWS (LEFT) COMPARISON: No relevant comparison. FINDINGS: No fracture or dislocation. Moderate left acromioclavicular joint degenerative change. Mild glenohumeral joint degenerative change. Partially visualized left hemithorax is clear. Procedure Note Adam Brown MD - 05/18/2022 XR HUMERUS (LEFT), XR SHOULDER 2 OR MORE VIEWS (LEFT) COMPARISON: No relevant comparison. FINDINGS: No fracture or dislocation. Moderate left acromioclavicular jointdegenerative change. Mild glenohumeral joint degenerative change.Partially visualized left hemithorax is clear. IMPRESSION: Degenerative changes. No acute osseous abnormality Priti Camilo PA IMG XR UPPER EXTREMITY Justine l Result documented in this encounter Visit Diagnoses Diagnosis Left arm pain- Primary Pain in soft tissues of limb Left arm pain Pain in soft tissues of limb documented in this encounter Additional Health Concerns Infection Onset Date Last Indicated Resolved Time CoV-Risk 08/02/2023 08/02/2023 08/13/2023 1:22 AM EDT CoV-Risk 06/02/2024 06/02/2024 06/13/2024 1:21 AM EDT documented as of this encounter Care Teams Psychiatric Technician Assistant Relationship Specialty Start Date End Date Kaden Finch DO PCP - General 01/14/17 06/01/24 Kaden Finch DO [address] [place] [address] PCP - General Internal Medicine 06/02/24 documented as of this encounter Additional Source Comments The information contained in this document represents components of the legal health record. It is not the complete legal health record.[facility]
--- OUTSIDE RECORDS SUMMARY | 2025-02-19 13:58 | XMS_ITS | Encounter Summary ---
Author Organization [facility] Address [address] [facility] [address] [place] [address] Phone Care Team Providers Care Teaching Pastor Name Role Phone MagalyKaden doherty Oliver DELEON Primary Care Provider [phone] Josette Kaden Boyd DO Primary Care Provider [phone] Reason for Referral * MRI/CAT Scan - Closed Specialty Diagnoses / Procedures Referred By Charlotte hodge Referred To Contact Radiology Diagnoses Left shoulder pain, unspecified chronicity Procedures MRI Shoulder (Left) CHG MRI, JOINT UPPER EXTREM CHG MRI, JOINT UPPER EXTREM W/CONTRAST CHG MRI, JOINT UPPER EXTREM COMBO Priti Camilo PA 6 [facility] [place] [address] Phone: tel: fax: Referral ID Status Reason Start Date Expiration Date Visits Re quested Visits Authorized [id number] Closed 05/25/2022 07/23/2022 1 1 Encounter Details Date Type Department Care Team (Latest Contact Info) Description 06/05/2022 Transcribe Orders Virtual Department 30 [place] [address] Priti Camilo PA 6 [facility] [place] [address] Left shoulder pain, unspecified chronicity (Primary Dx) Social History Tobacco Use Types [...] Info) Description 06/05/2025 8:15 AM EDT Appointment [facility], [facility] 30 [place] [address] Kaden Finch DO 179 [facility] [place] [address] 02/04/2026 10:00 AM EST Office Visit [facility] 22 [facility] 3rd Floor, [address] [place] [address] Sebas Jordan MD, MS 22 [facility], [address] [place] [address] [email or web address] documented as of this encounter Results * MRI SHOULDER WITHOUT CONTRAST (LEFT) (06/17/2022 8:35 AM EDT) Anatomical Region Laterality Modality Shoulder Left Magnetic Resonan ce 06/17/2022 3:36 PM EDT Impressions 06/17/2022 4:25 PM EDT 1. Extensive full-thickness tear of the supraspinatus and infraspinatus tendons with marked retraction of the supraspinatus tendon. Edema within the supraspinatus and infraspinatus muscles consistent with strain. 2. Arthrosis at the acromioclavicular joint which may predispose to impingement. 3. Mild osteoarthritic change at the glenohumeral joint. Narrative 06/17/2022 4:25 PM EDT MRI SHOULDER WITHOUT CONTRAST (LEFT) HISTORY: Acute pain and decreased range of motion after recent falls. TECHNIQUE: Multi-sequence, multi-planar MRI of the shoulder without intravenous contrast. COMPARISON: Left shoulder x-ray the 06/01/2022. FINDINGS: Coracoacromial Arch: Small amount of edema within the subacromial/subdeltoid bursa. Moderate hypertrophic change at the acromioclavicular joint. Small amount of fluid within the joint. Rotator Cuff: Full thickness tear of the supraspinatus which involves the entire extent of the tendon. Marked retraction of the tendon. The tear also involves the infraspinatus tendon. The subscapularis tendon is intact. Edema within the supraspinatus and infraspinatus muscles. Moderate atrophy of the supraspinatus muscle. More mild atrophy of the infraspinatus muscle. Glenoid Labrum and Biceps Tendon: The biceps tendon is intact. The labrum is grossly intact. Bones: No fractures. No suspicious marrow signal abnormalities. Glenohumeral Joint: Loss of articular cartilage at the glenohumeral joint. No dislocation. Tiny glenohumeral joint effusion. Procedure Note Ryan Krishna MD - 06/17/2022 MRI SHOULDER WITHOUT CONTRAST (LEFT) HISTORY: Acute pain and decreased range of motion after recent falls. TECHNIQUE: Multi-sequence, multi-planar MRI of the shoulder withoutintravenous contrast. COMPARISON: Left shoulder x-ray the 06/01/2022. FINDINGS: Coracoacromial Arch: Small amount of edema within thesubacromial/subdeltoid bursa. Moderate hypertrophic change at theacromioclavicular joint. Small amount of fluid within the joint. Rotator Cuff: Full thickness tear of the supraspinatus which involves theentire extent of the tendon. Marked retraction of the tendon. The tearalso involves the infraspinatus tendon. The subscapularis tendon isintact. Edema within the supraspinatus and infraspinatus muscles. Moderateatrophy of the supraspinatus muscle. More mild atrophy of theinfraspinatus muscle. Glenoid Labrum and Biceps Tendon: The biceps tendon is intact. The labrumis grossly intact. Bones: No fractures. No suspicious marrow signal abnormalities. Glenohumeral Joint: Loss of articular cartilage at the glenohumeral joint.No dislocation. Tiny glenohumeral joint effusion. IMPRESSION: 1. Extensive full-thickness tear of the supraspinatus and infraspinatustendons with marked retraction of the supraspinatus tendon. Edema withinthe supraspinatus and infraspinatus muscles consistent with strain. 2. Arthrosis at the acromioclavicular joint which may predispose toimpingement. 3. Mild osteoarthritic change at the glenohumeral joint. Priti GILLILAND IMG MR EXTREMITY Final Resu lt documented in this encounter Visit Diagnoses Diagnosis Left shoulder pain, unspecified chronicity- Primary Left shoulder pain, unspecified chronicity documented in this encounter Additional Health Concerns Infection Onset Date Last Indicated Resolved Time CoV-Risk 08/02/2023 08/02/2023 08/13/2023 1:22 AM EDT CoV-Risk 06/02/2024 06/02/2024 06/13/2024 1:21 AM EDT documented as of this encounter Care Teams Teaching Pastor Relationship Specialty Start Date End Date Kaden Finch DO PCP - General 01/14/17 06/01/24 Kaden Finch DO [address] [place] [address] PCP - General Internal Medicine 06/02/24 documented as of this encounter Additional Source Comments The information contained in this document represents components of the legal health record. It is not the complete legal health record.[facility]
--- OUTSIDE RECORDS SUMMARY | 2025-02-19 13:58 | XMS_ITS | Encounter Summary ---
Author Organization [facility] Address [address] [facility] [address] [place] [address] Phone Care Team Providers Care Nursing Program Director Name Role Phone Kaden Finch DO Primary Care Provider [phone] Kaden Finch Primary Care Provider [phone] Encounter Details Date Type Department Care Team (Late st Contact Info) Description 05/18/2022 Ancillary Orders [facility], X-Ray [address] [address] Priti Camilo PA [address] [place] [address] [place] [address] Pain Social History Tobacco Use Types Packs/Day Years [...] Info) Description 06/05/2025 8:15 AM EDT Appointment [facility], Bone Density - [address] [address] MagalyKaden doherty, DO 179 [facility] [place] [address] 02/04/2026 10:00 AM EST Office Visit [facility] 22 [facility] 3rd Floor, [address] [place] [address] Sebas Jordan MD, MS 22 [facility], [address] [place] [address] [email or web address] documented as of this encounter Results * XR Humerus (Left) (05/18/2022 8:58 AM EST) Anatomical Region Laterality Modality Arm Left Computed Radiogr aphy 05/18/2022 3:50 PM [...] documented in this encounter Visit Diagnoses Diagnosis Pain Generalized pain Pain Generalized pain documented in this encounter Additional Health Concerns Infection Onset Date Last Indicated Resolved Time CoV-Risk 08/02/2023 08/02/2023 08/13/2023 1:22 AM EDT CoV-Risk 06/02/2024 06/02/2024 06/13/2024 1:21 AM EDT documented as of this encounter Care Teams Nursing Program Director Relationship Specialty Start Date End Date Kaden Finch DO PCP - General 01/14/17 06/01/24 Kaden Finch DO [address] [place] [address] PCP - General Internal Medicine 06/02/24 documented as of this encounter Additional Source Comments The information contained in this document represents components of the legal health record. It is not the complete legal health record.[facility]
--- OUTSIDE RECORDS SUMMARY | 2025-02-19 13:58 | XMS_ITS | Encounter Summary ---
Author Organization [facility] Address [address] [facility] [address] [place] [address] Phone Care Team Providers Care Relay Man Name Role Phone Josette Kaden Boyd DO Primary Care Provider [phone] Kaden Finch DO Primary Care Provider [phone] Encounter Details Date Type Department Care Team (Late Contact Info) Description 02/07/2018 Ancillary Orders Virtual Department 30 [place] [address] Kaden Finch DO 179 [facility] [address] Breast screening Social History Tobacco Use Types [...] Info) Description 06/05/2025 8:15 AM EDT Appointment [facility], [facility] 30 [place] [address] Magalychas Kaden Oliver, DO 179 [facility] [address] [email or web address] 02/04/2026 10:00 AM EST Office Visit [facility] 22 [facility] 3rd Floor, [address] [place] [address] Sebas Jordan MD, MS 22 [facility], [address] [place] [address] [email or web address] documented as of this encounter Results * BI MAMMOGRAM SCREENING WITH TOMOSYNTHESIS WITH CAD (BILATERAL) (02/14/2018 3:57 PM EST) Anatomical Region Laterality Modality Breast Left, Breast Right, Breast Bilateral Bila teral Mammography 02/15/2018 8:17 AM EST Impressions 02/15/2018 8:21 AM EST No mammographic evidence of malignancy. BI-RADS CATEGORY: 2 - Benign finding. DENSITY: There are scattered fibroglandular densities. POS - CDHMAMA Narrative 02/15/2018 8:21 AM EST Standard digital full-field 2-D C view and two-plane tomographic imaging was performed and compared with multiple prior studies, most recently 02/12/2017, with utilization of computer-aided detection. The breasts are composed of scattered fibroglandular densities. The stromal markings are essentially stable in overall appearance and distribution. No dominant spiculated mass, suspicious clustered microcalcifications, or focal zone of pathologic skin thickening or retraction are noted to have arisen in the interim. Extensive bilateral coarse, punctate, and grossly benign-appearing linear secretory-type calcifications display no worrisome interval change. Procedure Note Tariq Lopez MD - 02/15/2018 Standard digital full-field 2-D C view and two-plane tomographic imagingwas performed and compared with multiple prior studies, most /17/2017, with utilization of computer-aided detection. The breasts are composed of scattered fibroglandular densities. Thestromal markings are essentially stable in overall appearance anddistribution. No dominant spiculated mass, suspicious clusteredmicrocalcifications, or focal zone of pathologic skin thickening orretraction are noted to have arisen in the interim. Extensive bilateralcoarse, punctate, and grossly benign-appearing linear secretory-typecalcifications display no worrisome interval change. IMPRESSION: No mammographic evidence of malignancy. BI-RADS CATEGORY: 2 - Benign finding. DENSITY: There are scattered fibroglandular densities. POS - CDHMAMA us Kaden Finch DO IMG MG EXAMS [...] documented as of this encounter Care Teams Relay Man Relationship Specialty Start Date End Date Kaden Finch DO PCP - General 01/14/17 06/01/24 Kaden Finch DO [address] [place] [address] PCP - General Internal Medicine 06/02/24 documented as of this encounter Additional Source Comments The information contained in this document represents components of the legal health record. It is not the complete legal health record.[facility]
--- OUTSIDE RECORDS SUMMARY | 2025-02-19 13:59 | XMS_ITS | Encounter Summary ---
Author Organization [facility] Address [address] [facility] [address] [place] [address] Phone Care Team Providers Care Assembly Cleaner Name Role Phone Kaden Finch DO Primary Care Provider [phone] Kaden Finch DO Primary Care Provider [phone] Encounter Details Date Type Department Care Team (Latest Contact Info) Description 05/03/2017 Ancillary Orders [facility] External Provider Virtual Department 30 [place] [address] Beth Madsen, MATEO [address] [place] [address] [email or web address] Abnormal cardiovascular stress test; Chest pain on exertion Social History Tobacco Use Types Packs/Day Years [...] Info) Description 06/05/2025 8:15 AM EDT Appointment [facility], [facility] 30 [place] [address] Kaden Finch DO 179 [facility] [place] [address] 02/04/2026 10:00 AM EST Office Visit [facility] 22 [facility] 3rd Floor, [address] [place] [address] Sebas Jordan MD, MS 22 [facility], [address] [place] [address] [email or web address] documented as of this encounter Visit Diagnoses Diagnosis Abnormal cardiovascular stress test Other nonspecific abnormal cardiovascular system function study Chest pain on exertion Unspecified chest pain documented in this encounter Additional Health [...] documented as of this encounter Care Teams Assembly Cleaner Relationship Specialty Start Date End Date Kaden Finch DO PCP - General 01/14/17 06/01/24 Kaden Finch DO [address] [facility] [place] [address] PCP - General Internal Medicine 06/02/24 documented as of this encounter Additional Source Comments The information contained in this document represents components of the legal health record. It is not the complete legal health record.[facility]
--- OUTSIDE RECORDS SUMMARY | 2025-02-19 13:59 | XMS_ITS | Encounter Summary ---
Author Organization [facility] Address [address] [place] [address] [address] [place] [address] Phone Care Team Providers Care Bean Weigher Name Role Phone Kaden Finch DO Primary Care Provider [phone] Kaden Finch DO Primary Care Provider [phone] Encounter Details Date Type Department Care Team (Latest Contact Info) Description 06/01/2017 Transcribe Orders [address] [address] Po Santiago MD 22 [facility], [address] [place] [address] [email or web address] Hyperthyroidism (Primary Dx) Social History Tobacco Use Types [...] Info) Description 06/05/2025 8:15 AM EDT Appointment [facility], Bone Density - [address] [address] MagalychasKaden, DO 179 [facility] [place] [address] [email or web address] 02/04/2026 10:00 AM EST Office Visit [facility] 22 [facility] 3rd Floor, [address] [place] [address] Sebas Jordan MD, MS 22 [facility], [address] [place] [address] [email or web address] documented as of this encounter Results * T4, total (06/01/2017 9:01 AM EST) THYROXINE 7.8 4.6 - 12.0 ug/dL [facility] Blood 06/01/2017 9:01 AM EST 06/01/2017 9:08 AM EST us Po Santiago MD LAB BLOOD ORDERABLES Final Res ult [address] [address] * TSH (06/01/2017 9:01 AM EST) TSH 1.09 0.27 - 4.20 uIU/mL [facility] Blood 06/01/2017 9:01 AM EST 06/01/2017 9:08 AM EST Po Santiago MD LAB BLOOD BKR ORDERABLES Final Result [address] [address] documented in this encounter Visit Diagnoses Diagnosis Hyperthyroidism- Primary Thyrotoxicosis without mention of goiter or other cause, without mention of thyrotoxic crisis or storm documented in this encounter Additional Health Concerns [...] documented as of this encounter Care Teams Bean Weigher Relationship Specialty Start Date End Date Kaden Finch DO PCP - General 01/14/17 06/01/24 Kaden Finch DO [address] [place] [address] PCP - General Internal Medicine 06/02/24 documented as of this encounter Additional Source Comments The information contained in this document represents components of the legal health record. It is not the complete legal health record.[facility]
--- OUTSIDE RECORDS SUMMARY | 2025-02-19 13:59 | XMS_ITS | Encounter Summary ---
Author Organization [facility] Address [address] [facility] [address] [place] [address] Phone Care Team Providers Care Real Estate Assistant Name Role Phone Josette Kaden Boyd DO Primary Care Provider [phone] Kaden Finch DO Primary Care Provider [phone] Encounter Details Date Type Department Care Team (Late st Contact Info) Description 05/11/2017 Ancillary Orders [facility], X-Ray [address] [address] Kaden Finch DO 179 [facility] [address] [place], [place] [id number] [email or web address] Cough Social History Tobacco Use Types Packs/Day Years [...] Info) Description 06/05/2025 8:15 AM EDT Appointment [facility], Bone Density [address] [place] [address] MagalyKaden doherty, [address] [facility] [place] [address] [place] [address] [email or web address] 02/04/2026 10:00 AM EST Office Visit [facility] 22 [facility] 3rd Floor, [address] [place] [address] Sebas Jordan MD, MS 22 [facility], [address] [place] [address] [email or web address] documented as of this encounter Results * XR CHEST PA AND LATERAL 2 VIEWS (05/11/2017 12:48 PM EST) Anatomical Region Laterality Modality Chest Radiographic Betty ging 05/11/2017 1:24 PM EST Impressions 05/11/2017 1:25 PM EST No acute pulmonary process or explanation for cough is seen. No change is evident relative to prior imaging. S/S: Persistent cough POS - [id number] Narrative 05/11/2017 1:25 PM EST COMPARISON: Chest x-ray May 02, 2017 FINDINGS: PA and lateral imaging of the chest is obtained. The heart size at the upper range of normal. The lung guallpa are clear. No pneumothorax or pleural fluid is evident. The aortic contour is unremarkable. There are mild degenerative changes in the thoracic spine. Procedure Note Jim Perea MD - 05/11/2017 COMPARISON: Chest x-ray May 02, 2017 FINDINGS: PA and lateral imaging of the chest is obtained. The heart size at the upper range of normal. The lung guallpa are clear. No pneumothorax or pleural fluid is evident. The aortic contour is unremarkable. There are mild degenerative changes in the thoracic spine. IMPRESSION: No acute pulmonary process or explanation for cough is seen. No change isevident relative to prior imaging. S/S: Persistent cough POS - [id number] Kaden Byod Magalychas IMG XR CHEST Final Result documented in this encounter Visit Diagnoses Diagnosis Cough Cough documented in this encounter Additional Health Concerns [...] documented as of this encounter Care Teams Real Estate Assistant Relationship Specialty Start Date End Date Kaden Finch DO PCP - General 01/14/17 06/01/24 Kaden Finch DO [address] [place] [address] PCP - General Internal Medicine 06/02/24 documented as of this encounter Additional Source Comments The information contained in this document represents components of the legal health record. It is not the complete legal health record.[facility]
--- OUTSIDE RECORDS SUMMARY | 2025-02-19 13:59 | XMS_ITS | Encounter Summary ---
Author Organization [facility] Address [address] [place] [address] [place] [address] Phone Care Team Providers Care Airframe And Power Plant Mechanic Name Role Phone Kaden Finch DO Primary Care Provider [phone] Kaden Finch DO Primary Care Provider [phone] Encounter Details Date Type Department Care Team (Late Contact Info) Description 04/19/2017 Ancillary Orders [facility] External Provider Virtual Department 30 [place] [address] Beth Madsen, MATEO 54 Terese Rodrigues. Dima. [address] [place] [address] [email or web address] Chest pain, unspecified type Social History Tobacco Use Types Packs/Day Years [...] Info) Description 06/05/2025 8:15 AM EDT Appointment [facility], [address] [place] [address] MagalyKaden doherty, DO 179 [facility] [place] [address] [place] [address] [email or web address] 02/04/2026 10:00 AM EST Office Visit [facility] 22 [facility] 3rd Floor, [address] [place] [address] Sebas Jordan MD, MS 22 [facility], [address] [place] [address] [email or web address] documented as of this encounter Results * Stress Test Exercise (04/21/2017 11:01 AM EST) Max BP Systolic 180 mmHg [facility] Max BP Diastolic 60 mmHg [facility] Max HR 164 BPM [facility] Resting HR 106 BPM [facility] Resting BP Systolic 150 mmHg [facility] Resting BP Diastolic 80 mmHg [facility] Peak METS 6.7 METS [facility] Peak HR 164 BPM [facility] Patient Age 66 [facility] Anatomical Region Laterality Modality Heart Other 04/21/2017 10:1 9 AM EST 04/21/2017 11:01 AM EST Narrative 04/22/2017 12:55 AM EST Zaire protocol for 3:53 minutes. 106% MPHR. 6.7 METS. The patient's Sage treadmill score is 0 (Moderate risk for cardiac event) The EKG portion of this stress test is indeterminate for ischemia at a diagnostic level of stress. Consider myocardial perfusion imaging (i.e., nuclear stress test). Stress Test Result A stress test was performed following the standard Zaire protocol. The patient reached stage 2 of the protocol , exercising for 3 minutes 53 seconds. The heart rate changed from 106 bpm at rest to 164 bpm at peak stress (106.49% of the age predicted maximum heart rate). The blood pressure changed from 150/80 mmHg at rest. The test was terminated due to chest pain and leg fatigue. The patient reported non-limiting angina during the stress test. Patient had an appropriate blood pressure response to stress. Patient had an exaggerated heart response to stress. The patient's functional capacity is 6.7 METS. Overall, the patient's exercise capacity was fair. The maximum ST deviation was 0 mm. The patient's Sage treadmill score is 0. The EKG portion of this stress test is indeterminate for ischemia at a diagnostic level of stress . Pt exercised for 3:53 minutes on a ZAIRE protocol achieving 6.7 METS. TEst terminated due to chest pain and leg pain. Max heart rate 164 (106% MPHR). 1. No ischemic EKG changes. 2. Pt had 6/10 chest pain at peak exercise. Pain resolved spontaneously in early recovery. Pt had a significant coughing fit in recovery. Tried proair inhaler. Cough subsisded by 9 min into recovery. 3. Normal BP response to exercise. Fair functional capacity for age. 4. Few PVCs. Conclusion - Indeterminate stress test with no EKG evidence of ischemia but she did have exertional chest pain and only fair functional capacity. Consider myocardial perfusion imaging (i.e., nuclear stress test) Cristian Noland FRESH FOOD MANAGER with Dr Echeverria June Cale GALINDO CV STRESS ORDERABLES Final R esult documented in this encounter Visit Diagnoses Diagnosis Chest pain, unspecified type Chest pain, unspecified type documented in this encounter Additional [...] documented as of this encounter Care Teams Airframe And Power Plant Mechanic Relationship Specialty Start Date End Date Kaden Finch DO PCP - General 01/14/17 06/01/24 Kaden Finch DO [address] [place] [address] PCP - General Internal Medicine 06/02/24 documented as of this encounter Additional Source Comments The information contained in this document represents components of the legal health record. It is not the complete legal health record.[facility]
--- OUTSIDE RECORDS SUMMARY | 2025-02-19 13:59 | XMS_ITS | Encounter Summary ---
Author Organization [facility] Address [address] [facility] [address] [place] [address] Phone Care Team Providers Care Engineering Programmer Name Role Phone MagalyKaden doherty Oliver DELEON Primary Care Provider [phone] Kaden Finch DO Primary Care Provider [phone] Encounter Details Date Type Department Care Team (Late st Contact Info) Description 09/08/2021 Transcribe Orders Virtual Department 30 [place] [address] Kaden Finch DO 179 [facility] [place] [address] Cough, unspecified (Primary Dx) Social History Tobacco Use Types [...] 06/05/2025 8:15 AM EDT Appointment [facility] 30 [place] [address] Kaden Finch DO 179 [facility] [place] [address] [email or web address] 02/04/2026 10:00 AM EST Office Visit [facility] 22 [facility] 3rd Floor, [address] [place] [address] Sebas Jordan MD, MS 22 [facility], [address] [place] [address] [email or web address] documented as of this encounter Visit Diagnoses Diagnosis Cough, unspecified- Primary documented in this encounter Additional Health Concerns Infection Onset Date Last Indicated Resolved Time CoV-Risk Comment:Per Ambulatory Triage Form 2021 08/29/202109/09 1:23 AM EDT CoV-Risk 03/02/2022 03/02/2022 03/13/2022 1:22 AM EST Influenza 03/02/2022 03/02/2022 03/09/2022 1:33 AM EST CoV-Risk 08/02/2023 08/02/2023 08/13/2023 1:22 AM EDT CoV-Risk 06/02/2024 06/02/2024 06/13/2024 1:21 AM EDT documented as of this encounter Care Teams Engineering Programmer Relationship Specialty Start Date End Date MagalyKaden dohertyDO PCP - General 01/14/17 06/01/24 Kaden Finch DO 179 [facility] [place] [address] PCP - General Internal Medicine 06/02/24 documented as of this encounter Additional Source Comments The information contained in this document represents components of the legal health record. It is not the complete legal health record.[facility]
--- OUTSIDE RECORDS SUMMARY | 2025-02-19 13:59 | XMS_ITS | Encounter Summary ---
Author Organization [facility] Address [address] [facility] [address] [place] [address] Phone Care Team Providers Care Spinner Open End Name Role Phone Kaden Finch DO Primary Care Provider [phone] Kaden Finch DO Primary Care Provider [phone] Encounter Details Date Type Department Care Team (Latest Contact Info) Description 04/21/2017 Transcribe Orders [facility] Phleb Main 30 [place] [address] Cale Beth, MATEO 54 Terese Rodrigues. Dima. [address] [place] [address] [email or web address] Chest pain, unspecified type (Primary Dx) Social History Tobacco [...] 06/05/2025 8:15 AM EDT Appointment [facility], Bone Density - [address] [address] Kaden Finch, 179 [facility] [place] [address] 02/04/2026 10:00 AM EST Office Visit [facility] 22 [facility] 3rd Floor, [address] [place] [address] Sebas Jordan MD, MS 22 [facility], [address] [place] [address] [email or web address] documented as of this encounter Results * Troponin (04/21/2017 9:53 AM EST) TROPONIN-T <0.01 0 - 0.03 ng/mL [facility] Blood 04/21/2017 9:53 AM EST 04/21/2017 9:56 AM EST June Cale GALINDO LAB BLOOD BKR ORDERABLES Fin al Result [facility] 30 [place] [address] documented in this encounter Visit Diagnoses Diagnosis Chest pain, unspecified type- Primary documented in this encounter Additional Health [...] documented as of this encounter Care Teams Spinner Open End Relationship Specialty Start Date End Date Kaden Finch DO [email or web address] PCP - General 01/14/17 06/01/24 Kaden Finch DO 179 [place] [address] [email or web address] PCP - General Internal Medicine 06/02/24 documented as of this encounter Additional Source Comments The information contained in this document represents components of the legal health record. It is not the complete legal health record.[facility]
--- OUTSIDE RECORDS SUMMARY | 2025-02-19 13:59 | XMS_ITS | Encounter Summary ---
Author Organization [facility] Address [address] [place] [address] [address] [place] [address] Phone Care Team Providers Care Analytics Senior Manager Name Role Phone Kaden Finch DO Primary Care Provider [phone] Kaden Finch DO Primary Care Provider [phone] Encounter Details Date Type Department Care Team (Latest Contact Info) Description 06/08/2017 Transcribe Orders [facility] PFT Lab 30 [place] [address] Po Santiago MD 22 [facility], [address] [place] [address] [email or web address] Uncomplicated asthma, unspecified asthma severity, unspecified [...] Info) Description 06/05/2025 8:15 AM EDT Appointment [facility], Bone Density - [facility] [address] [place] [address] Kaden Finch, 179 [facility] [place] [address] 02/04/2026 10:00 AM EST Office Visit [facility] 22 [facility] 3rd Floor, [address] [place] [address] Sebas Jordan MD, MS 22 [facility], [address] [place] [address] [email or web address] documented as of this encounter Results * Pulmonary Function Test Reason for Exam: Asthma; Type of PFT Test: Spirometry with bronchodilator, Spirometry while seated and supine, Lung Volumes, DLCO; Performing Location: [facility] (07/28/2017 5:52 PMEDT) Anatomical Region Laterality Modality Other Narrative Procedure Note Po Santiago MD - 07/23/2017 7:53 AM EDT REFERRING PHYSICIAN: Kaden Finch MD SPIROMETRY: In the prebronchodilator study, the FVC is minimally reduced. Other spirometric values are normal. In the postbronchodilator study, there is an 18% improvement in FVC, 18% improvement in FEV1, 17% improvement in FEF 25/75. Flow volume loop demonstrates numerical flattening of the inspiratory limb with a normal morphology. LUNG VOLUMES: TLC is minimally reduced at 76% predicted. RV minimally to moderately reduced at 64% predicted. RV/TLC reduced at 33%. DIFFUSING CAPACITY: DLCO is minimally reduced at 70% predicted, but the specific diffusing capacity is normal. ARTERIAL BLOOD GASES: SaO2 is normal at 96%. IMPRESSION: Minimal restrictive physiology. With a normal specific diffusing capacity, this is considered extraparenchymal in origin and consistent with patient's obesity. Though baseline spirometry is normal, there is a considerable response to bronchodilators meeting the criteria for asthma. Numerical flattening of the inspiratory limb with a normal morphology is nonspecific. Po Santiago M.D. Dictator/Villarreal: [id number] Date/Time Date/Time Modified Date: 07/24/2017 01:50:26 [id number] This report has not been authenticated by the dictating clinician unless signature appears above, or an electronic signature statement appears below this line. CC: Kaden Finch D.O. us Po Santiago MD PFT ORDERABLES Final Result documented in this encounter Visit [...] documented as of this encounter Care Teams Analytics Senior Manager Relationship Specialty Start Date End Date Kaden Finch DO [email or web address] PCP - General 01/14/17 06/01/24 Kaden Finch DO 179 [place] [address] [email or web address] PCP - General Internal Medicine 06/02/24 documented as of this encounter Additional Source Comments The information contained in this document represents components of the legal health record. It is not the complete legal health record.[facility]
--- OUTSIDE RECORDS SUMMARY | 2025-02-19 13:59 | XMS_ITS | Encounter Summary ---
Author Organization [facility] Address [address] [facility] [address] [place] [address] Phone Care Team Providers Care Senior Games Technician Name Role Phone Kaden Finch DO Primary Care Provider [phone] Kaden Finch Primary Care Provider [phone] Encounter Details Date Type Department Care Team (Latest Contact Info) Description 01/05/2022 Transcribe Orders Virtual Department 30 [place] [address] Priti Camilo PA [address] [place] [address] [place] [address] Muscle weakness (generalized) (Primary Dx) Social History Tobacco Use Types [...] Info) Description 06/05/2025 8:15 AM EDT Appointment [facility], [facility] 30 [place] [address] Kaden Finch DO 179 [place] [address] 02/04/2026 10:00 AM EST Office Visit [facility] 22 [facility] 3rd Floor, [address] [place] [address] Sebas Jordan MD, MS 22 [facility], [address] [place] [address] [email or web address] documented as of this encounter Visit Diagnoses Diagnosis Muscle weakness (generalized)- Primary documented in this encounter Additional Health Concerns Infection Onset Date Last Indicated Resolved Time CoV-Risk 03/02/2022 03/02/2022 03/13/2022 1:22 AM EST Influenza 03/02/2022 03/02/2022 03/09/2022 1:33 AM EST CoV-Risk 08/02/2023 08/02/2023 08/13/2023 1:22 AM EDT CoV-Risk 06/02/2024 06/02/2024 06/13/2024 1:21 AM EDT documented as of this encounter Care Teams Senior Games Technician Relationship Specialty Start Date End Date MagalyKaden dohertyDO PCP - General 01/14/17 06/01/24 Kaden Finch DO [address] [place] [address] PCP - General Internal Medicine 06/02/24 documented as of this encounter Additional Source Comments The information contained in this document represents components of the legal health record. It is not the complete legal health record.[facility]
--- OUTSIDE RECORDS SUMMARY | 2025-02-19 13:59 | XMS_ITS | Encounter Summary ---
Author Organization [facility] Address [address] [place] [address] [place] [address] Phone Care Team Providers Care Rock Wool Applicator Name Role Phone Kaden Finch DO Primary Care Provider [phone] Kaden Finch DO Primary Care Provider [phone] Encounter Details Date Type Department Care Team (Late st Contact Info) Description 04/16/2017 Ancillary Orders [facility], X-Ray [address] [address] Beth Madsen, MATEO 54 Terese Rodrigues. Dima. [address] [place] [address] [email or web address] Pain Social History Tobacco Use Types Packs/Day [...] Info) Description 06/05/2025 8:15 AM EDT Appointment [facility], Bone D[facility] - [facility] 30 [place] [address] Magalychas Kaden Boyd, DO 179 [facility] [place] [address] 02/04/2026 10:00 AM EST Office Visit [facility] 22 [facility] 3rd Floor, [address] [place] [address] Sebas Jordan MD, MS 22 [facility], [address] [place] [address] [email or web address] documented as of this encounter Results * XR FOOT 3 OR MORE VIEWS (RIGHT) (04/16/2017 5:40 PM EST) Anatomical Region Laterality Modality Foot Right Radiographic Betty ging 04/16/2017 5:46 PM EST Impressions 04/16/2017 5:48 PM EST No acute fracture. POS - [id number] Narrative 04/16/2017 5:48 PM EST HISTORY: As above. COMPARISON: None. RIGHT FOOT RADIOGRAPH FINDINGS: 3 views obtained. There is no acute fracture or malalignment. Mild first MTP joint space narrowing and spurring. Nonspecific second metatarsal cortical thickening. No destructive bone lesions. No acute soft tissue findings. Procedure Note David Mendez MD - 04/16/2017 HISTORY: As above. COMPARISON: None. RIGHT FOOT RADIOGRAPH FINDINGS: 3 views obtained. There is no acute fracture or malalignment. Mild firstMTP joint space narrowing and spurring. Nonspecific second metatarsalcortical thickening. No destructive bone lesions. No acute soft tissuefindings. IMPRESSION: No acute fracture. POS - [id number] Beth Cale GALINDO IMG XR LOWER EXTREMITY Final Result documented in this encounter Visit [...] documented as of this encounter Care Teams Rock Wool Applicator Relationship Specialty Start Date End Date Kaden Finch DO PCP - General 01/14/17 06/01/24 Kaden Finch DO [address] [place] [address] PCP - General Internal Medicine 06/02/24 documented as of this encounter Additional Source Comments The information contained in this document represents components of the legal health record. It is not the complete legal health record.[facility]
--- OUTSIDE RECORDS SUMMARY | 2025-02-19 13:59 | XMS_ITS | Encounter Summary ---
Author Organization [facility] Address [address] [facility] [address] [place] [address] Phone Care Team Providers Care Sludge Filtration Attendant Name Role Phone Kaden Finch DO Primary Care Provider [phone] Kaden Finch DO Primary Care Provider [phone] Encounter Details Date Type Department Care Team (Late Contact Info) Description 03/04/2017 Transcribe Orders [facility] Phleb Main [address] [place] [address] Kaden Finch DO 179 [facility] [place] [address] Diabetes 1.5, managed as type 2 (Primary Dx) Social History Tobacco Use Types [...] Info) Description 06/05/2025 8:15 AM EDT Appointment [facility], Bone Density - [facility] 30 [place] [address] Kaden Finch DO 179 [facility] [place] [address] 02/04/2026 10:00 AM EST Office Visit [facility] 22 [facility] 3rd Floor, [address] [place] [address] Sebas Jordan MD, MS 22 [facility], [address] [place] [address] [email or web address] documented as of this encounter Procedures Procedure Name Priority Date/Time Associated Diagnosis Comments MICROALBUMIN/CREATIN INE RATIO, RANDOM URINE Routine 03/04/2017 7:32 AM EST Diabetes 1.5, managed as type 2 HEMOGLOBIN A1C Routine 03/04/2017 7:32 AM EST Diabetes 1.5, managed as type 2 LIPID PANEL Routine 03/04/2017 7:32 AM EST Diabetes 1.5, managed as type 2 documented in this encounter Results * (ABNORMAL) Microalbumin/creatinine ratio, random urine (03/04/2017 7:32 AM EST) URINE MICROALBUMIN 3.6(H) 0 - 2.3 mg/dL [facility] URINE CREATININE 102 mg/dL [facility] MICROALB/CRE RATIO 35.3(H) 0 - 20 mg/g Cre [facility] Urine (Urine) 03/04/2017 7:3 2 AM EST 03/04/2017 7:38 AM EST us Kaden Finch DO LAB URINE ORDERABLES Final Resul t [facility] 30 [place] [address] * (ABNORMAL) Hemoglobin A1c (03/04/2017 7:32 AM EST) HEMOGLOBIN A1C 7.3(H) 4.3 - 5.8 % [facility] Blood 03/04/2017 7:32 AM EST 03/04/2017 7:40 AM EST us Kaden A Bigda DO LAB BLOOD BKR ORDERABLES Final R esult Performing Organization Address [facility] Co de Phone Number [address] [address] * (ABNORMAL) Lipid panel (03/04/2017 7:32 AM EST) HDL 40 mg/dL [facility] Comment: Interpretation: Risk Level Females Decreased >55mg/dL Average 50-55 mg/dL Increased <50 mg/dL CHOLESTEROL 154 0 - 240 mg/dL [facility] TRIGLYCERIDES 166(H) 30 - 160 mg/dL [facility] LDL 81 50 - 129 mg/dL [facility] Comment: LDL levels in terms of risk for coronary heart disease: <100 mg/dL: Optimal 100-129 mg/dL: Near or above optimal 130-159 mg/dL: Borderline high 160-189 mg/dL: High >190 mg/dL: Very High CARDIAC RISK RATIO 3.9 3.3 - 4.4 C [facility] Blood 03/04/2017 7:32 AM EST 03/04/2017 7:40 AM EST us Kaden A Bigda DO LAB BLOOD BKR ORDERABLES Final R esult Performing Organization Address [facility] Co de Phone Number [address] [address] documented in this encounter Visit Diagnoses Diagnosis Diabetes 1.5, managed as type 2- Primary documented in this encounter Additional Health [...] documented as of this encounter Care Teams Sludge Filtration Attendant Relationship Specialty Start Date End Date Kaden Finch DO PCP - General 01/14/17 06/01/24 Kaden Finch DO [address] [place] [address] PCP - General Internal Medicine 06/02/24 documented as of this encounter Additional Source Comments The information contained in this document represents components of the legal health record. It is not the complete legal health record.[facility]
--- OUTSIDE RECORDS SUMMARY | 2025-02-19 13:59 | XMS_ITS | Encounter Summary ---
Author Organization [facility] Address [address] [facility] [address] [place] [address] Phone Care Team Providers Care Fashion Journalist Name Role Phone Kaden Finch DO Primary Care Provider [phone] Kaden Finch DO Primary Care Provider Encounter Details Date Type Department Care Team (Late Contact Info) Description 12/31/2020 Procedure Pass [address] [address] Social History Tobacco Use Types Packs/Day Years [...] Info) Description 06/05/2025 8:15 AM EDT Appointment [address] [address] Kaden Finch DO 179 [facility] [place] [address] 02/04/2026 10:00 AM EST Office Visit [facility] [address] [facility] 3rd Floor, [address] [place] [address] Sebas Jordan MD, MS 22 [facility], [facility] 301 [place] [address] documented as of this encounter Visit Diagnoses [...] documented as of this encounter Care Teams Fashion Journalist Relationship Specialty Start Date End Date Kaden Finch DO PCP - General 01/14/17 06/01/24 Kaden Finch DO [address] [place] [address] [place] [address] PCP - General Internal Medicine 06/02/24 documented as of this encounter Additional Source Comments The information contained in this document represents components of the legal health record. It is not the complete legal health record.[facility]
--- OUTSIDE RECORDS SUMMARY | 2025-02-19 13:59 | XMS_ITS | Encounter Summary ---
Author Organization [facility] Address [address] [place] [address] [place] [address] Phone Care Team Providers Care Winding Rack Operator Name Role Phone Kaden Finch DO Primary Care Provider [phone] Kaden Finch DO Primary Care Provider Encounter Details Date Type Department Care Team (Late Contact Info) Description 01/27/2017 Ancillary Orders Virtual Department 30 [place] [address] aKmini Zhang, MAIN LINE ASSEMBLER [address] [place] [address] Rib pain Social History Tobacco Use Types Packs/Day Years [...] Info) Description 06/05/2025 8:15 AM EDT Appointment [facility], [facility] 30 [place] [address] MagalychasKaden, DO [address] [facility] [place] [address] [place] [address] 02/04/2026 10:00 AM EST Office Visit [facility] [address] [facility] 3rd Floor, [address] [place] [address] Sebas Jordan MD, MS 22 [facility], [address] [place] [address] [email or web address] documented as of this encounter Results * XR RIBS 2 VIEWS (RIGHT) (01/28/2017 5:36 PM EDT) Anatomical Region Laterality Modality Chest Radiographic Betty ging 01/28/2017 7:58 PM EDT Impressions 01/28/2017 8:03 PM EDT No explanation for pain. POS - [id number] Narrative 01/28/2017 8:03 PM EDT HISTORY: Right rib pain COMPARISON: None FINDINGS: Three views. No evidence of acute fractures. No suspicious lytic or blastic lesions within the bones. Procedure Note Ryna Finn MD - 01/28/2017 HISTORY: Right rib pain COMPARISON: None FINDINGS: Three views. No evidence of acute fractures. No suspicious lytic or blastic lesionswithin the bones. IMPRESSION: No explanation for pain. POS - [id number] Kamini Zhang MAIN LINE ASSEMBLER IMG XR CHEST Final Resul t documented in this encounter Visit Diagnoses Diagnosis Rib pain Unspecified chest pain Rib pain Unspecified chest pain documented in this encounter [...] documented as of this encounter Care Teams Winding Rack Operator Relationship Specialty Start Date End Date Kaden Finch DO PCP - General 01/14/17 06/01/24 Kaden Finch DO 179 [place] [address] PCP - General Internal Medicine 06/02/24 documented as of this encounter Additional Source Comments The information contained in this document represents components of the legal health record. It is not the complete legal health record.[facility]
--- OUTSIDE RECORDS SUMMARY | 2025-02-19 13:59 | XMS_ITS | Encounter Summary ---
Author Organization [facility] Address [address] [place] [address] [place] [address] Phone Care Team Providers Care Cad Technician Name Role Phone MagalyKaden doherty Primary Care Provider [phone] Magalychas Kaden Oliver Primary Care Provider Reason for Referral * MRI/CAT Scan - Closed Specialty Diagnoses / Procedures Referred By Charlotte hodge Referred To Contact Radiology Diagnoses Other spondylosis with radiculopathy, lumbar region Other intervertebral disc degeneration, lumbar region Procedures MRI Lumbar Spine CHG MRI, LUMBAR SPINE CHG MRI, LUMBAR SPINE CONTRAST CHG MRI, LUMBAR SPINE COMBO Feliciano Nassar MD Phone: tel: fax: [email or web address] Referral ID Status Reason Start Date Expiration Date Visits Re quested Visits Authorized [id number] Closed 01/15/2021 03/15/2021 1 1 Encounter Details Date Type Department Care Team (Latest Contact Info) Description 12/31/2020 Transcribe Orders Virtual Department 30 [place] [address] Feliciano Nassar MD 6 [place] [address] [email or web address] Other spondylosis with radiculopathy, lumbar region (Primary Dx); Other intervertebral disc degeneration, lumbar region Social History Tobacco Use Types Packs/Day Years [...] Info) Description 06/05/2025 8:15 AM EDT Appointment [facility], [facility] 30 [place] [address] Kaden Finch DO 179 [facility] [place] [address] [place] [address] 02/04/2026 10:00 AM EST Office Visit [facility] [address] [facility] 3rd Floor, [address] [place] [address] Sebas Jordan MD, MS 22 [facility], [address] [address] [email or web address] documented as of this encounter Results * MRI LUMBAR SPINE (BONE) WITHOUT CONTRAST (01/25/2021 1:21 PM EDT) Anatomical Region Laterality Modality L-spine Magnetic Resonan ce 01/25/2021 4:00 PM EDT Impressions 01/25/2021 4:18 PM EDT 1. Little change from 10/25/2016. No central canal stenosis or high-grade neuroforaminal narrowing. No significant focal disc abnormalities. 2. Similar multilevel degenerative disc and mild degenerative endplate changes. Similar mild-moderate facet arthropathy. Narrative 01/25/2021 4:18 PM EDT HISTORY: Low back pain radiating down both legs of the feet. COMPARISON: MRI lumbar spine 10/25/2016, lumbar spine x-ray 08/05/2016. TECHNIQUE: Exam performed on a 1.5 Aysha high-field MRI scanner. Sagittal T1, T2 and STIR, axial T1 and T2 sequences were obtained. FINDINGS: Conus medullaris: Normal. L1-L2: Mild degenerative endplate changes. No focal disc abnormality or spinal stenosis. L2-L3: Stable loss of T2 signal within the disc, mild disc space narrowing and degenerative endplate changes. Small broad-based disc protrusion. No central canal stenosis. Minimal facet arthropathy. Minimal neuroforaminal narrowing. L3-L4: Stable loss of T2 signal within the disc and mild degenerative endplate changes. Small broad-based disc bulge. Mild facet arthropathy. No central canal stenosis. Mild neuroforaminal narrowing. L4-L5: Stable loss of T2 signal within the disc, mild disc space narrowing and degenerative endplate changes. Development of a small broad-based disc protrusion. Mild-moderate bilateral facet arthropathy is similar. No central canal stenosis. Mild-moderate neuroforaminal narrowing on the right. Mild neuroforaminal narrowing on the left. L5-S1: Stable loss of T2 signal within the disc. Mild disc space narrowing and mild degenerative endplate changes. Small broad-based disc bulge is stable. Stable mild-moderate bilateral facet arthropathy. No central canal stenosis. Mild neuroforaminal narrowing, more so on left than right. Soft tissues: No evidence of paravertebral masses. Vertebral bodies: No evidence of compression fractures or subluxations. Marrow signal: Stable 12 mm T1, T2 hyperintense lesion within the body of L1 consistent with a hemangioma. No suspicious marrow signal abnormalities. Other: No other significant changes. Procedure Note Ryan Krishna MD - 01/25/2021 HISTORY: Low back pain radiating down both legs of the feet. COMPARISON: MRI lumbar spine 10/25/2016, lumbar spine x-ray 08/05/2016. TECHNIQUE: Exam performed on a 1.5 Aysha high-field MRI scanner. SagittalT1, T2 and STIR, axial T1 and T2 sequences were obtained. FINDINGS: Conus medullaris: Normal. L1-L2: Mild degenerative endplate changes. No focal disc abnormality orspinal stenosis. L2-L3: Stable loss of T2 signal within the disc, mild disc space narrowingand degenerative endplate changes. Small broad-based disc protrusion. Nocentral canal stenosis. Minimal facet arthropathy. Minimal neuroforaminalnarrowing. L3-L4: Stable loss of T2 signal within the disc and mild degenerativeendplate changes. Small broad-based disc bulge. Mild facet arthropathy. Nocentral canal stenosis. Mild neuroforaminal narrowing. L4-L5: Stable loss of T2 signal within the disc, mild disc space narrowingand degenerative endplate changes. Development of a small broad-based discprotrusion. Mild-moderate bilateral facet arthropathy is similar. Nocentral canal stenosis. Mild-moderate neuroforaminal narrowing on theright. Mild neuroforaminal narrowing on the left. L5-S1: Stable loss of T2 signal within the disc. Mild disc space narrowingand mild degenerative endplate changes. Small broad-based disc bulge isstable. Stable mild-moderate bilateral facet arthropathy. No central canalstenosis. Mild neuroforaminal narrowing, more so on left than right. Soft tissues: No evidence of paravertebral masses. Vertebral bodies: No evidence of compression fractures or subluxations. Marrow signal: Stable 12 mm T1, T2 hyperintense lesion within the body ofL1 consistent with a hemangioma. No suspicious marrow signalabnormalities. Other: No other significant changes. IMPRESSION: 1. Little change from 10/25/2016. No central canal stenosis or high-gradeneuroforaminal narrowing. No significant focal disc abnormalities. 2. Similar multilevel degenerative disc and mild degenerative endplatechanges. Similar mild-moderate facet arthropathy. us Feliciano Nassar MD [facility] MR XSPECIALTY Final Result documented in this encounter Visit Diagnoses Diagnosis Other spondylosis with radiculopathy, lumbar region- Primary Other intervertebral disc degeneration, lumbar region Other spondylosis with radiculopathy, lumbar region Other intervertebral disc degeneration, lumbar region documented in this encounter Additional Health Concerns Infection Onset Date Last Indicated Resolved Time CoV-Risk Comment:Per Ambulatory Triage Form 2021 08/29/202109/09 1:23 AM EDT CoV-Risk 03/02/2022 03/02/2022 03/13/2022 1:22 AM EST Influenza 03/02/2022 03/02/2022 03/09/2022 1:33 AM EST CoV-Risk 08/02/2023 08/02/2023 08/13/2023 1:22 AM EDT CoV-Risk 06/02/2024 06/02/2024 06/13/2024 1:21 AM EDT documented as of this encounter Care Teams Cad Technician Relationship Specialty Start Date End Date Kaden Finch DO [email or web address] PCP - General 01/14/17 06/01/24 Kaden Finch DO [address] [place] [address] [email or web address] PCP - General Internal Medicine 06/02/24 documented as of this encounter Additional Source Comments The information contained in this document represents components of the legal health record. It is not the complete legal health record.[facility]
--- OUTSIDE RECORDS SUMMARY | 2025-02-19 14:00 | XMS_ITS | Encounter Summary ---
Author Organization [facility] Address [address] [facility] [address] [place] [address] Phone Care Team Providers Care Special Education Supervisor Name Role Phone Kaden Finch DO Primary Care Provider [phone] Kaden Finch DO Primary Care Provider [phone] Encounter Details Date Type Department Care Team (Latest Contact Info) Description 05/15/2019 Transcribe Orders [facility] Main 30 [place] [address] Po Santiago MD [address] [facility], [address] [place] [address] [email or web address] Thyrotoxicosis without thyroid storm, unspecified thyrotoxicosis type (Primary Dx) Social History Tobacco Use [...] Info) Description 06/05/2025 8:15 AM EDT Appointment [facility], Bone Density - [address] [address] Kaden Finch, [address] [facility] [place] [address] [email or web address] 02/04/2026 10:00 AM EST Office Visit [facility] [address] [facility] 3rd Floor, [address] [place] [address] Sebas Jordan MD, MS 22 [facility], [facility] 301 [place] [address] [email or web address] documented as of this encounter Results * TSH (05/15/2019 4:10 PM EST) TSH 0.94 0.27 - 4.20 uIU/mL [facility] Blood 05/15/2019 4:10 PM EST 05/15/2019 4:12 PM EST us Po Santiago MD LAB BLOOD BKR ORDERABLES Final Result [facility] 30 [place] [address] documented in this encounter Visit Diagnoses Diagnosis Thyrotoxicosis without thyroid storm, unspecified thyrotoxicosis type- Primary documented in this encounter Additional [...] documented as of this encounter Care Teams Special Education Supervisor Relationship Specialty Start Date End Date Kaden Finch DO [email or web address] PCP - General 01/14/17 06/01/24 Kaden Finch DO [address] [place] [address] [email or web address] PCP - General Internal Medicine 06/02/24 documented as of this encounter Additional Source Comments The information contained in this document represents components of the legal health record. It is not the complete legal health record.[facility]
--- OUTSIDE RECORDS SUMMARY | 2025-02-19 14:00 | XMS_ITS | Encounter Summary ---
Author Organization [facility] Address [address] [facility] [address] [place] [address] Phone Care Team Providers Care Airline Counter Agent Name Role Phone Kaden Finch DO Primary Care Provider [phone] Kaden Finch DO Primary Care Provider [phone] Encounter Details Date Type Department Care Team (Latest Contact Info) Description 05/11/2019 Transcribe Orders Virtual Department 30 [place] [address] Po Santiago MD 22 [facility], [facility] 301 [place] [address] [email or web address] Uncomplicated asthma, unspecified asthma severity, unspecified [...] Info) Description 06/05/2025 8:15 AM EDT Appointment [facility] [address] [place] [address] Kaden Finch, 179 [facility] [place] [address] [email or web address] 02/04/2026 10:00 AM EST Office Visit [facility] 22 [facility] 3rd Floor, [address] [place] [address] Sebas Jordan MD, MS 22 [facility], [address] [place] [address] [email or web address] documented as of this encounter Results * XR CHEST PA AND LATERAL 2 VIEWS (05/15/2019 4:30 PM EST) Anatomical Region Laterality Modality Chest Radiographic Betty ging 05/15/2019 4:59 PM EST Impressions 05/15/2019 5:01 PM EST Stable appearance of the chest without evidence of acute pulmonary process. POS: [id number] Narrative 05/15/2019 5:01 PM EST XR CHEST PA AND LATERAL 2 VIEWS HISTORY: Cough, asthma. COMPARISON: Multiple prior chest x-rays, the most recent of which is dated 01/06/2019.. FINDINGS: Lines and Tubes: None. Cardiomediastinum: The cardiac silhouette is normal in size. The mediastinal and hilar contours are normal. Lungs and Pleural: The lungs are clear. No pneumothorax or pleural effusion. Bones and Soft Tissues: No acute bony abnormality. Surgical clips are seen in the right upper quadrant. Procedure Note Teresa Bernal MD - 05/15/2019 XR CHEST PA AND LATERAL 2 VIEWS HISTORY: Cough, asthma. COMPARISON: Multiple prior chest x-rays, the most recent of which isdated 01/06/2019.. FINDINGS: Lines and Tubes: None. Cardiomediastinum: The cardiac silhouette is normal in size. Themediastinal and hilar contours are normal. Lungs and Pleural: The lungs are clear. No pneumothorax or pleuraleffusion. Bones and Soft Tissues: No acute bony abnormality. Surgical clips areseen in the right upper quadrant. IMPRESSION: Stable appearance of the chest without evidence of acute pulmonaryprocess. POS: [id number] Po Santiago MD IMG XR CHEST Final Result documented in [...] documented as of this encounter Care Teams Airline Counter Agent Relationship Specialty Start Date End Date Kaden Finch DO [email or web address] PCP - General 01/14/17 06/01/24 Kaden Finch DO 179 [place] [address] PCP - General Internal Medicine 06/02/24 documented as of this encounter Additional Source Comments The information contained in this document represents components of the legal health record. It is not the complete legal health record.[facility]
--- OUTSIDE RECORDS SUMMARY | 2025-02-19 14:00 | XMS_ITS | Encounter Summary ---
Author Organization [facility] Address [address] [facility] [address] [place] [address] Phone Care Team Providers Care Entertainment Dancer Name Role Phone MagalyKaden doherty Primary Care Provider [phone] Josette Kaden Oliver Primary Care Provider [phone] Encounter Details Date Type Department Care Team (Late st Contact Info) Description 11/22/2023 Procedure Pass [facility], [facility] 30 [place] [address] Social History Tobacco Use Types Packs/Day Years [...] 06/05/2025 8:15 AM EDT Appointment [facility], [address] [address] Kaden Finch DO [address] [place] [address] [email or web address] 02/04/2026 10:00 AM EST Office Visit [facility] [address] [place] [address] 3rd Floor, [address] [place] [address] Sebas Jordan MD, MS 22 [facility], [address] [address] documented as of this encounter Visit Diagnoses Not on filedocumented in this encounter Additional Health Concerns Infection Onset Date Last Indicated Resolved Time CoV-Risk 06/02/2024 06/02/2024 06/13/2024 1:21 AM EDT documented as of this encounter Care Teams Entertainment Dancer Relationship Specialty Start Date End Date Kaden Finch DO [email or web address] PCP - General 01/14/17 06/01/24 Kaden Finch DO [address] [place] [address] [email or web address] PCP - General Internal Medicine 06/02/24 documented as of this encounter Additional Source Comments The information contained in this document represents components of the legal health record. It is not the complete legal health record.[facility]
--- OUTSIDE RECORDS SUMMARY | 2025-02-19 14:00 | XMS_ITS | Encounter Summary ---
Author Organization [facility] Address [address] [facility] [address] [place] [address] Phone Care Team Providers Care Strip Winder Name Role Phone Kaden Finch DO Primary Care Provider [phone] Kaden Finch DO Primary Care Provider [phone] Encounter Details Date Type Department Care Team (Late st Contact Info) Description 01/16/2017 Ancillary Orders [address] [address] Kaden Finch DO [address] [place] [address] [email or web address] Screening breast examination Social History Tobacco Use Types Packs/Day Years Used Date Smoking Tobacco: Never Assessed Comments Unknown Sex and Gender Information Value Date Recorded Sex Assigned at Female 10/09/2020 8:13 AM EDT Legal Sex Female 10:01 PM EDT Gender Identity Female 10/09/2020 8:13 AM EDT Sexual Orientation Straight 10/09/2020 8: 13 AM EDT documented as of this encounter Plan of Treatment Upcoming Encounters Date Type Department Care Team (Late st Contact Info) Description 06/05/2025 8:15 AM EDT Appointment [address] [address] Kaden Finch DO [address] [place], [place] [phone] 02/04/2026 10:00 AM EST Office Visit [facility] [address] [facility] 3rd Floor, [address] [place] [address] Sebas Jordna MD, MS 22 [facility], [address] [place] [address] [email or web address] documented as of this encounter Results * BI MAMMOGRAM SCREENING WITH TOMOSYNTHESIS WITH CAD (BILATERAL) (02/12/2017 7:38 AM EST) Anatomical Region Laterality Modality Breast Left, Breast Right, Breast Bilateral Bila teral Mammography 02/12/2017 8:21 AM EST Impressions 02/12/2017 8:24 AM EST No mammographic evidence of malignancy. Recommend routine annual surveillance. BI-RADS CATEGORY: 2 - Benign finding. DENSITY: The breast tissue is heterogeneously dense, an appearance which lowers the sensitivity of mammography. POS - [email or web address] Narrative 02/12/2017 8:24 AM EST 66-year-old female with no current breast symptoms. Comparison made to previous on 02/10/2016 and as far back as 11/21/2010. Interpretation made in conjunction with computer-aided detection and tomosynthesis. The breasts are heterogeneously dense, which may obscure small masses. Increase in benign appearing bilateral calcifications. Stable bilateral postsurgical changes and left breast biopsy clip. There are no suspicious masses, areas of architectural distortion, or suspicious clusters of microcalcifications. Procedure Note David Mendez MD - 02/12/2017 66-year-old female with no current breast symptoms. Comparison made toprevious on 02/10/2016 and as far back as 11/21/2010. Interpretation madein conjunction with computer-aided detection and tomosynthesis. The breasts are heterogeneously dense, which may obscure small masses.Increase in benign appearing bilateral calcifications. Stable bilateralpostsurgical changes and left breast biopsy clip. There are no suspicious masses, areas of architectural distortion, orsuspicious clusters of microcalcifications. IMPRESSION: No mammographic evidence of malignancy. Recommend routine annualsurveillance. BI-RADS CATEGORY: 2 - Benign finding. DENSITY: The breast tissue is heterogeneously dense, an appearance whichlowers the sensitivity of mammography. POS - CDHMAMA us Kaden Oliver Josette DELEON IMG MG EXAMS Final Result documented in this encounter Visit Diagnoses Diagnosis Screening breast examination Other screening breast examination Screening breast examination Other screening breast examination documented in this encounter Additional Health Concerns [...] documented as of this encounter Care Teams Strip Winder Relationship Specialty Start Date End Date Kaden Finch DO [email or web address] PCP - General 01/14/17 06/01/24 Kaden Finch DO 179 [place] [address] PCP - General Internal Medicine 06/02/24 documented as of this encounter Additional Source Comments The information contained in this document represents components of the legal health record. It is not the complete legal health record.[facility]
--- OUTSIDE RECORDS SUMMARY | 2025-02-19 14:00 | XMS_ITS | Encounter Summary ---
Author Organization [facility] Address [address] [facility] [address] [place] [address] Phone Care Team Providers Care Director Of Radio Services Name Role Phone Kaden Finch DO Primary Care Provider [phone] Kaden Finch DO Primary Care Provider [phone] Encounter Details Date Type Department Care Team (Late Contact Info) Description 01/17/2020 Procedure Pass [facility] Endoscopy Admitting Dept Virtual Department 30 [place] [address] Social History Tobacco Use Types Packs/Day Years [...] Info) Description 06/05/2025 8:15 AM EDT Appointment [facility], Bone D[facility] - [facility] 30 [place] [address] Kaden Finch DO 179 [facility] [place] [address] 02/04/2026 10:00 AM EST Office Visit [facility] [address] [facility] 3rd Floor, [address] [place] [address] Sebas Jordan MD, MS 22 [facility], [address] [place] [address] documented as of this encounter Visit Diagnoses [...] documented as of this encounter Care Teams Director Of Radio Services Relationship Specialty Start Date End Date Kaden Finch DO PCP - General 01/14/17 06/01/24 Kaden Finch DO [address] [place] [address] PCP - General Internal Medicine 06/02/24 documented as of this encounter Additional Source Comments The information contained in this document represents components of the legal health record. It is not the complete legal health record.[facility]
--- OUTSIDE RECORDS SUMMARY | 2025-02-19 14:00 | XMS_ITS | Encounter Summary ---
Author Organization [facility] Address [address] [place] [address] Phone Care Team Providers Care Aircraft Technician Name Role Phone Kaden Finch Primary Care Provider [phone] Encounter Details Date Type Department Care Team (Late st Contact Info) Description 09/18/2024 Ancillary Orders [facility], X-Ray - [facility] [address] [place] [address] Feliciano Nassar MD [address] [place], [place] [id number] Cervicalgia (Primary Dx) Social History Tobacco Use Types [...] 8:15 AM EDT Appointment [facility], [facility] [address] [place] [address] Kaden Finch DO [address] [facility] [place] [address] [place] [address] 02/04/2026 10:00 AM EST Office Visit [facility] 22 [facility] 3rd Floor, [address] [place] [address] Sebas Jordan MD, MS 22 [facility], [address] [address] [email or web address] documented as of this encounter Results * XR CERVICAL SPINE 4-5 VIEWS (09/18/2024 10:03 AM EDT) Anatomical Region Laterality Modality C-spine Computed Radiogr aphy 09/18/2024 4:58 PM EDT Impressions 09/18/2024 5:15 PM EDT Multilevel degenerative changes in the cervical spine. Narrative 09/18/2024 5:15 PM EDT XR CERVICAL SPINE 4-5 VIEWS Referring clinician's provided indication for this examination in Epic: Pain COMPARISON: None FINDINGS: No prevertebral soft tissue swelling. Minimal anterolisthesis of C3 on C4 and C7 on T1. Vertebral body heights are maintained. Multilevel degenerative disc disease is most advanced at C6-C7. There is osseous foraminal encroachment at C5-C6 and C6- C7 bilaterally. Procedure Note Heladio Haider MD - 09/18/2024 XR CERVICAL SPINE 4-5 VIEWS Referring clinician's provided indication for this examination in [facility]:Pain COMPARISON: None FINDINGS: No prevertebral soft tissue swelling. Minimal anterolisthesis of C3 on C4and C7 on T1. Vertebral body heights are maintained. Multileveldegenerative disc disease is most advanced at C6-C7. There is osseousforaminal encroachment at C5-C6 and C6- C7 bilaterally. IMPRESSION: Multilevel degenerative changes in the cervical spine. eFliciano Nassar MD IMG XR SPINE Final Result documented in this encounter Visit Diagnoses Diagnosis Cervicalgia- Primary Cervicalgia documented in this encounter Care Teams Aircraft Technician Relationship Specialty Start Date End Date Kaden Finch DO [address] [place] [address] [email or web address] PCP - General Internal Medicine 06/02/24 documented as of this encounter Additional Source Comments The information contained in this document represents components of the legal health record. It is not the complete legal health record.[facility]
--- OUTSIDE RECORDS SUMMARY | 2025-02-19 14:00 | XMS_ITS | Encounter Summary ---
Author Organization [facility] Address [address] [facility] [address] [place] [address] Phone Care Team Providers Care Top Screw Name Role Phone Kaden Finch DO Primary Care Provider [phone] Encounter Details Date Type Department Care Team (Late st Contact Info) Description 11/22/2024 Transcribe Orders Virtual Department 30 [place] [address] Kaden Finch DO [address] [facility] [place] [address] [email or web address] Encounter for screening for osteoporosis (Primary Dx) Social History Tobacco Use Types [...] Info) Description 06/05/2025 8:15 AM EDT Appointment [facility], Bone Density - [address] [address] Kaden Finch DO [address] [place] [address] [email or web address] 02/04/2026 10:00 AM EST Office Visit [facility] [address] [place] [address] 3rd Floor, [address] [place] [address] Sebas Jordan MD, MS 22 [facility], [address] [address] Scheduled Orders Name Type Priority Associated Diagnoses Orde r Schedule DXA Screening Imaging Routine Encounter for screening for osteoporosis Expected: 12/22/2024, Expires: 11/22/2025 documented as of this encounter Visit Diagnoses Diagnosis Encounter for screening for osteoporosis- Primary documented in this encounter Care Teams Top Screw Relationship Specialty Start Date End Date Kaden Finch DO [address] [place] [address] [email or web address] PCP - General Internal Medicine 06/02/24 documented as of this encounter Additional Source Comments The information contained in this document represents components of the legal health record. It is not the complete legal health record.[facility]
--- OUTSIDE RECORDS SUMMARY | 2025-02-19 14:00 | XMS_ITS | Encounter Summary ---
Author Organization [facility] Address [address] [facility] [address] [place] [address] Phone Care Team Providers Care Emergency Spill Response Technician Name Role Phone MagalyKaden doherty Oliver DELEON Primary Care Provider [phone] Encounter Details Date Type Department Care Team (Late st Contact Info) Description 06/02/2024 Procedure Pass , [facility] [address] [place] [address] Social History Tobacco Use Types Packs/Day Years [...] on file documented as of this encounter Functional Status * Calculated C-SSRS Risk Score (Lifetime/Recent) Answer Date of Assessment Author No Risk Indicated 06/02/2024 8:04 AM Sylvain Ibarra, EMMA * [place] Suicide Severity Rating Scale (Screener/Recent Self-Report) Question Answer Date of Assessment Author 1. Wish to be (Past 1 Month) No 06/02/2024 8:04 AM Sylvain Contreras, EMMA 2. Non-Specific Active Suicidal Thoughts (Past 1 Month) No 06/02/2024 8:04 AM Sylvain Contreras, EMMA 6. Suicidal Behavior (Lifetime) No 06/02/2024 8:04 AM Sylvain Contreras, EMMA documented as of this encounter Plan of Treatment Upcoming Encounters Date Type Department Care Team (Late st Contact Info) Description 06/05/2025 8:15 AM EDT Appointment , [address] [address] Kaden Finch DO 179 [facility] [place] [address] 02/04/2026 10:00 AM EST Office Visit [facility] 22 [facility] 3rd Floor, [address] [place] [address] Sebas Jordan MD, MS 22 [facility], [address] [address] documented as of this encounter Visit Diagnoses Not on filedocumented in this encounter Additional Health Concerns Infection Onset Date Last Indicated Resolved Time CoV-Risk 06/02/2024 06/02/2024 06/13/2024 1:21 AM EDT documented as of this encounter Care Teams Emergency Spill Response Technician Relationship Specialty Start Date End Date Kaden Finch DO [address] [place] [address] [email or web address] PCP - General Internal Medicine 06/02/24 documented as of this encounter Additional Source Comments The information contained in this document represents components of the legal health record. It is not the complete legal health record.[facility]
--- OUTSIDE RECORDS SUMMARY | 2025-02-19 14:01 | XMS_ITS | Encounter Summary ---
Author Organization [facility] Address [address] [facility] [address] [place] [address] Phone Care Team Providers Care Rehab Manager Name Role Phone MagalyKaden doherty Oliver DELEON Primary Care Provider [phone] Josette Kaden Boyd DO Primary Care Provider [phone] Reason for Referral * Outpatient Procedure - Closed Specialty Diagnoses / Procedures Referred By Charlotte hodge Referred To Contact Diagnoses Other forms of dyspnea Dyspnea on exertion Procedures Adult Echo TTE Po Santiago MD Phone: tel: fax: mailto: Referral ID Status Reason Start Date Expiration Date Visits Re quested Visits Authorized [id number] Closed 03/08/2019 03/07/2020 1 1 Encounter Details Date Type Department Care Team (Latest Contact Info) Description 03/08/2019 Transcribe Orders Virtual Department 30 [place] [address] Po Santiago MD 22 [facility], [address] [place], [place] [id number] [email or web address] Other forms of dyspnea (Primary Dx); Dyspnea on exertion Social History Tobacco Use Types [...] Info) Description 06/05/2025 8:15 AM EDT Appointment [facility], Bone Density [facility] [address] [place] [address] Kaden Finch DO [address] [facility] [place] [address] 02/04/2026 10:00 AM EST Office Visit [facility] 22 [facility] 3rd Floor, [address] [place] [address] Sebas Jordan MD, MS 22 [facility], [address] [place] [address] [email or web address] documented as of this encounter Results * TTE COMPREHENSIVE (03/30/2019 1:20 PM EST) Body Surface Area 1.9 m2 Height 157 cm Weight 88 kg Systolic BP 152 mmHg Diastolic BP 91 mmHg Left Atrium Dimension Anterior-Posterior 32 15 - 40 mm Interventricular Septum Thickness 9 mm Left Ventricle Internal Diameter End Diastole 45 37 - 52 mm Left Ventricle Internal Diameter End Systole 28 22 - 35 mm Left Ventricular Outflow Tract Diameter 18.0 mm LVOT VTI REST 168 mm Left Ventricular Outflow Tract Velocity 0.9 m/s Left Ventricular Outflow Tract Gradient at Rest 3 mmHg Left Ventricular Posterior Wall Thickness 9 mm Aortic Valve Peak Velocity 94.1 cm/s Aortic Valve Peak Gradient 4 mmHg Aortic Sinus Diameter 31 mm Ascending Aorta Diameter 27 mm Inferior Vena Cava Diameter 16 0.0 - 21 mm Mitral Valve Deceleration Time 85 ms Mitral Valve E Wave Speed 91.7 cm/s Right Ventricle Basal Diameter 16.8 25 - 41 mm Raw LV EF% 61 % Aortic Valve Sinus Index 1 16 19 - 27 mm Ascending Aorta Diameter 14 mm Aortic Sinus Index 16 mm Ascending Aorta Index 14 mm Ejection Fraction 69 50 - 75 % Left Atrial Volume 40 mL Left Atrial Volume Index 21.05 mL/m2 Anatomical Region Laterality Modality Heart Ultrasound Narrative 03/30/2019 7:29 PM EST The study was technically difficult. The predominant rhythm during the study was sinus tachycardia. The left ventricular cavity size and wall thickness are normal. Left ventricular systolic function is normal. There are no segmental left ventricular wall motion abnormalities noted. The estimated ejection fraction is 69% (Normal 50-75%). The left ventricular ejection fraction was measured by the single dimension method. Left ventricular diastolic function appears within normal limits for age. No significant valvular disease. There is an insufficient tricuspid regurgitation Doppler profile to calculate a right ventricular systolic pressure. No prior studies for comparison. Left Ventricle The left ventricular cavity size and wall thickness are normal. Left ventricular systolic function is normal. There are no segmental left ventricular wall motion abnormalities noted. The estimated ejection fraction is 69% (Normal 50-75%). The left ventricular ejection fraction was measured by the single dimension method. Left ventricular diastolic function appears within normal limits for age. Right Ventricle The right ventricular size is normal. No evidence of right ventricular hypertrophy. The right ventricular systolic function is normal. Left Atrium The left atrium is normal in size. The left atrial anterior-posterior dimension measures 32 mm (normal 15-40 mm). The LA volume is 40 mL. The LA volume index is 21.05 mL/m2 (normal indexed value is 16-34 mL/m2). The pulmonary venous flow profiles are normal. Pulmonary vein connections were not well seen. Right Atrium The right atrium is normal in size. The IVC is normal in size (2.1cm or less). The IVC measures 16 mm (normal <=21 mm). The IVC demonstrates normal collapse with inspiration which is consistent with normal RA pressure. Mitral Valve The mitral valve appears normal. The Med E' Deniz is 12.0 cm/s and the Lat E' Deniz is 8.9 cm/s. The E/E' AVG is 8.8. There is no evidence of mitral stenosis. There is no significant mitral regurgitation detected by spectral and color Doppler. Tricuspid Valve The tricuspid valve appears normal. There is no evidence of tricuspid stenosis. There is evidence of trace tricuspid regurgitation by color and spectral Doppler. There is an insufficient tricuspid regurgitation Doppler profile to calculate a right ventricular systolic pressure. Aortic Valve The aortic valve appears normal. The aortic valve is tricuspid. There is no evidence of valvular aortic stenosis. The peak aortic valve gradient is 4 mmHg. There is no evidence of aortic regurgitation by color and spectral Doppler. The visualized portions of the thoracic aorta appear normal. Pulmonic Valve The pulmonary valve appears normal. There is no evidence of pulmonic stenosis. There is evidence of trace pulmonary regurgitation by color and spectral Doppler. Pericardium There is no evidence of pericardial effusion. Interatrial Septum The interatrial septum appears normal. Interventricular Septum Interventricular septal motion appears normal. General Findings The study was technically difficult (4). Suboptimal apical views. Study quality explanation: body habitus. Technique(s) used in the evaluation: Color flow Doppler and Spectral Doppler. The predominant rhythm during the study was sinus tachycardia. Comparison Findings No prior studies for comparison. us Po Santiago MD CV ECHO ORDERABLES Final Resul t documented in this encounter Visit Diagnoses Diagnosis Other forms of dyspnea- Primary Dyspnea on exertion Other dyspnea and respiratory abnormality Other forms of dyspnea Dyspnea on exertion Other dyspnea and respiratory abnormality documented in this encounter Additional Health Concerns [...] documented as of this encounter Care Teams Rehab Manager Relationship Specialty Start Date End Date Kaden Finch DO [email or web address] PCP - General 01/14/17 06/01/24 Kaden Finch DO [address] [place] [address] [email or web address] PCP - General Internal Medicine 06/02/24 documented as of this encounter Additional Source Comments The information contained in this document represents components of the legal health record. It is not the complete legal health record.[facility]
--- OUTSIDE RECORDS SUMMARY | 2025-02-19 14:01 | XMS_ITS | Encounter Summary ---
Author Organization [facility] Address [address] [facility] [address] [place] [address] Phone Care Team Providers Care Community Health Consultant Name Role Phone MagalyKaden doherty Primary Care Provider Josette Kaden Oliver Primary Care Provider [phone] Encounter Details Date Type Department Care Team (Late st Contact Info) Description 12/23/2023 Procedure Pass [facility], [facility] 30 [place] [address] Social History Tobacco Use Types Packs/Day Years [...] Info) Description 06/05/2025 8:15 AM EDT Appointment [facility], [address] [address] Kaden Finch DO 179 [facility] [place] [address] 02/04/2026 10:00 AM EST Office Visit [facility] [address] [place] [address] 3rd Floor, [address] [place] [address] Sebas Jordan MD, MS 22 [facility], [address] [address] documented as of this encounter Visit Diagnoses Not on filedocumented in this encounter Additional Health Concerns Infection Onset Date Last Indicated Resolved Time CoV-Risk 06/02/2024 06/02/2024 06/13/2024 1:21 AM EDT documented as of this encounter Care Teams Community Health Consultant Relationship Specialty Start Date End Date Kaden Finch DO PCP - General 01/14/17 06/01/24 Kaden Finch DO [address] [facility] [place] [address] [email or web address] PCP - General Internal Medicine 06/02/24 documented as of this encounter Additional Source Comments The information contained in this document represents components of the legal health record. It is not the complete legal health record.[facility]
--- OUTSIDE RECORDS SUMMARY | 2025-02-19 14:01 | XMS_ITS | Encounter Summary ---
Author Organization [facility] Address [address] [facility] [address] [place] [address] Phone Care Team Providers Care Back Digger Operator Name Role Phone Kaden Finch DO Primary Care Provider [phone] Kaden Finch DO Primary Care Provider [phone] Encounter Details Date Type Department Care Team ([facility] st Contact Info) Description 11/22/2023 Transcribe Orders Virtual Department [address] [place] [address] Kaden Finch DO [address] [facility] [place] [address] [place] [address] [email or web address] Encounter for screening for osteoporosis (Primary Dx); Breast screening Social History Tobacco Use Types [...] Info) Description 06/05/2025 8:15 AM EDT Appointment [facility], [facility] 30 [place] [address] Kaden Finch, [address] [facility] [place] [address] [place] [address] [email or web address] 02/04/2026 10:00 AM EST Office Visit [facility] [address] [place] [address] 3rd Floor, [address] [place] [address] Sebas Jordan MD, MS 22 [facility], [address] [address] [email or web address] documented as of this encounter Results * [...] be notified of the results and recommendations. Kaden Finch DO IMG MG EXAMS Final Result documented in this encounter Visit Diagnoses Diagnosis Encounter for screening for osteoporosis- Primary Breast screening Breast screening, unspecified Breast screening Breast screening, unspecified documented in this encounter Additional Health Concerns Infection Onset Date Last Indicated Resolved Time CoV-Risk 06/02/2024 06/02/2024 06/13/2024 1:21 AM EDT documented as of this encounter Care Teams Back Digger Operator Relationship Specialty Start Date End Date Kaden Finch DO PCP - General 01/14/17 06/01/24 Kaden Finch DO [address] [place] [address] [email or web address] PCP - General Internal Medicine 06/02/24 documented as of this encounter Additional Source Comments The information contained in this document represents components of the legal health record. It is not the complete legal health record.[facility]
--- OUTSIDE RECORDS SUMMARY | 2025-02-19 14:02 | XMS_ITS | Encounter Summary ---
Author Organization [facility] Address [address] [place] [address] [place] [phone] Phone Care Team Providers Care Collections Professional Name Role Phone MagalyKaden doherty Primary Care Provider [phone] Josette Kaden Oliver Primary Care Provider [phone] Reason for Referral * MRI/CAT Scan - Closed Specialty Diagnoses / Procedures Referred By Charlotte hodge Referred To Contact Radiology Diagnoses Other spondylosis with radiculopathy, lumbar region Other intervertebral disc degeneration, lumbar region Procedures MRI Lumbar Spine CHG MRI, LUMBAR SPINE CHG MRI, LUMBAR SPINE CONTRAST CHG MRI, LUMBAR SPINE COMBO Feliciano Nassar MD [address] [place] [phone] Phone: tel: fax: [email or web address] Referral ID Status Reason Start Date Expiration Date Visits Re quested Visits Authorized [id number] Closed 12/23/2023 02/20/2024 1 1 Encounter Details Date Type Department Care Team (Latest Contact Info) Description 12/23/2023 Transcribe Orders Virtual Department [address] [place] [phone] Feliciano Nassar MD [address] [place] [phone] [email or web address] Other spondylosis with radiculopathy, lumbar region (Primary [...] Info) Description 06/05/2025 8:15 AM EDT Appointment [facility], [facility] [address] [place] [address] Kaden Finch DO [address] [facility] [place] [address] 02/04/2026 10:00 AM EST Office Visit [facility] [address] [facility] [address], [address] [place] [address] Sebas Jordan MD, MS [address] [facility], [address] [place] [address] [email or web address] documented as of this encounter Results * MRI LUMBAR SPINE (NEURO) WITHOUT CONTRAST (01/25/2024 8:00 AM EDT) Anatomical Region Laterality Modality L-spine Magnetic Resonan ce 01/26/2024 10:4 7 AM EDT Impressions 01/26/2024 10:54 AM EDT 1. Interval progression of severe degenerative disc disease and facet arthropathy at L4-5 compared with the MRI from 01/25/2021, contributing to mild spinal canal stenosis and severe right and moderate left foraminal stenosis. 2. Moderate left foraminal stenosis at L5-S1 has increased. Narrative 01/26/2024 10:54 AM EDT MRI LUMBAR SPINE (NEURO) WITHOUT CONTRAST Referring clinician's provided indication for this examination in Epic: Outside Radiology Order; spondylosis TECHNIQUE: MRI LUMBAR SPINE (NEURO) WITHOUT CONTRAST Multi-sequence, multi-planar MRI of the lumbar spine was performed without intravenous contrast. COMPARISON: MRI LUMBAR SPINE (BONE) WITHOUT CONTRAST FINDINGS: LUMBAR SPINE: Alignment and Vertebrae: Normal alignment. No compression fracture. Marrow: No bone marrow replacing lesion. Discs and Endplates: Severe degenerative disc disease at L4-5 with severe disc height loss and endplate erosions has significantly progressed compared with the prior MRI from 01/25/2021. Conus: Conus is normal in signal and terminates at L1. Soft Tissues: Normal. No prevertebral edema. Other Findings: None. Findings by level: T12-L1: No spinal canal or foraminal stenosis. L1-L2: No spinal canal or foraminal stenosis. L2-L3: Mild disc bulging. No significant spinal canal or foraminal stenosis. L3-L4: Mild disc bulging and mild facet arthropathy. No significant spinal canal stenosis. Mild bilateral foraminal stenosis. L4-L5: Diffuse disc bulging and severe facet arthropathy. Mild spinal canal and bilateral subarticular recess stenosis with slight abutment of the bilateral traversing L5 nerve roots. Severe right and moderate left foraminal stenosis. Findings have progressed. L5-S1: Disc bulging and mild facet arthropathy. No spinal canal stenosis. Moderate left foraminal stenosis, increased. Procedure Note Mahesh Ramírez MD - 01/26/2024 MRI LUMBAR SPINE (NEURO) WITHOUT CONTRAST Referring clinician's provided indication for this examination in Epic:Outside Radiology Order; spondylosis TECHNIQUE: MRI LUMBAR SPINE (NEURO) WITHOUT CONTRAST Multi-sequence, multi-planar MRI of the lumbar spine was performed withoutintravenous contrast. COMPARISON: MRI LUMBAR SPINE (BONE) WITHOUT CONTRAST FINDINGS: LUMBAR SPINE: Alignment and Vertebrae: Normal alignment. No compression fracture. Marrow: No bone marrow replacing lesion. Discs and Endplates: Severe degenerative disc disease at L4-5 with severedisc height loss and endplate erosions has significantly progressedcompared with the prior MRI from 01/25/2021. Conus: Conus is normal in signal and terminates at L1. Soft Tissues: Normal. No prevertebral edema. Other Findings: None. Findings by level: T12-L1: No spinal canal or foraminal stenosis. L1-L2: No spinal canal or foraminal stenosis. L2-L3: Mild disc bulging. No significant spinal canal or foraminalstenosis. L3-L4: Mild disc bulging and mild facet arthropathy. No significant spinalcanal stenosis. Mild bilateral foraminal stenosis. L4-L5: Diffuse disc bulging and severe facet arthropathy. Mild spinalcanal and bilateral subarticular recess stenosis with slight abutment ofthe bilateral traversing L5 nerve roots. Severe right and moderate leftforaminal stenosis. Findings have progressed. L5-S1: Disc bulging and mild facet arthropathy. No spinal canal stenosis.Moderate left foraminal stenosis, increased. IMPRESSION: 1. Interval progression of severe degenerative disc disease and facetarthropathy at L4-5 compared with the MRI from 01/25/2021, contributing tomild spinal canal stenosis and severe right and moderate left foraminalstenosis. 2. Moderate left foraminal stenosis at L5-S1 has increased. Feliciano Nassar MD IMG MR XSPECIALTY Final Result documented in this [...] documented as of this encounter Care Teams Collections Professional Relationship Specialty Start Date End Date Kaden Finch DO PCP - General 01/14/17 06/01/24 Kaden Finch DO [address] [place] [phone] PCP - General Internal Medicine 06/02/24 documented as of this encounter Additional Source Comments The information contained in this document represents components of the legal health record. It is not the complete legal health record.[facility]
== END 2025-02-19 10:54 | disposition home or self-care (01) ==
LOC: HO.MANLDS 10:53
PROVIDERS: Visit Provider Internal Medicine
DX: E11.9 Type 2 diabetes mellitus without complications (principal); Z79.4 Long term (current) use of insulin
CPT/HCPCS: 36415; 83036